=== PATIENT | male | born 1980 | race American Indian/Alaskan Native ===

== ENCOUNTER 2017-04-14 16:41 | Emergency (ER) | payer MEDICAID ==
[2017-04-14] MEDS ORDERED: NORCO 5/325 PO ONE (20:31)
--- NOTE | 2017-04-14 20:36 | Emergency Department Report ---
ED Back Pain/Injury HPI - General Chief Complaint: Back Pain/Injury Stated Complaint: BACK PAIN Time Seen by Provider: 04/14/17 20:31 Source: patient Limitations: No Limitations - History of Present Illness Initial Comments: 36-year-old male past medical history chronic lower back pain, history of muscle spasms, right femur fracture, diabetes, asthma presents with complaint of chronic back pain. States he is intermittently feeling muscle spasms in his lower back. States he has experienced these multiple times in the past. Denies any recent falls or recent trauma. Patient is awake alert and oriented 3 ambulatory denies any saddle paresthesias denies any bladder or bowel incontinence. Patient states that he ran out of his [place] which is why he came to the ER. Patient states that he was trying to get in touch with his primary doctor but could not do so. Patient is requesting a referral to primary care and medicine for his lower back pain. Patient denies any nausea vomiting fever chills abdominal pain no shortness of breath no chest pain reported. Denies any upper or lower extremity paresthesias. States that occasionally he does experience sciatica. Patient states that this pain is the same quality pain he has been experiencing for years. Patient is requesting a refill on his [place]. MD Complaint: back pain -: year(s) Similar Symptoms Previously: Yes Place: home Severity: moderate Severity scale (0 -10): 5 Quality: aching Consistency: intermittent Improves With: immobilization Worsens With: movement Context: while lifting, turning/twisting, bending - Related Data Home Medications Medication Instructions Recorded Confirmed Last Taken Insulin Glargine [Lantus] 30 units SQ QHS 05/15/16 05/15/16 Unknown Insulin Regular, Human [HumuLIN R] 12 unit SQ ACHS 05/15/16 05/15/16 Unknown Previous Rx's Medication Instructions Recorded Last Taken Type Cephalexin [Keflex] 1,000 mg PO Q12HR #40 cap 05/15/16 Unknown Rx Cyclobenzaprine [Flexeril] 10 mg PO TID PRN #12 tablet 04/14/17 Unknown Rx Naproxen [Naproxen TAB] 250 mg PO BID PRN #25 tablet 04/14/17 Unknown Rx Allergies Allergy/AdvReac Type Severity Reaction Status Date / Time cefixime [From Suprax] Allergy Hives Verified 04/14/17 17:46 ciprofloxacin [From Cipro] Allergy Unknown Verified 11/26/14 02:38 ciprofloxacin HCl Allergy Unknown Verified 11/26/14 02:38 [From Cipro] Sulfa (Sulfonamide Allergy Unknown Verified 11/26/14 02:38 Antibiotics) sulfamethoxazole Allergy Unknown Verified 11/26/14 02:38 [From Bactrim] trimethoprim [From Bactrim] Allergy Unknown Verified 11/26/14 02:38 ED Review of Systems ROS: Stated complaint: BACK PAIN Other details as noted in HPI ED Past Medical Hx - Past Medical History Previous Medical History?: Yes Hx Diabetes: Yes Hx Asthma: Yes Additional medical history: Back Pain (chronic) - Surgical History Past Surgical History?: Yes Additional Surgical History: left ear surgery when born - Social History Smoking Status: Current Every Day Smoker Substance Use Type: None - Medications Home Medications: Home Medications Medication Instructions Recorded Confirmed Last Taken Type Cephalexin [Keflex] 1,000 mg PO Q12HR #40 cap 05/15/16 Unknown Rx Insulin Glargine [Lantus] 30 units SQ QHS 05/15/16 05/15/16 Unknown History Insulin Regular, Human [HumuLIN R] 12 unit SQ ACHS 05/15/16 05/15/16 Unknown History Cyclobenzaprine [Flexeril] 10 mg PO TID PRN #12 tablet 04/14/17 Unknown Rx Naproxen [Naproxen TAB] 250 mg PO BID PRN #25 tablet 04/14/17 Unknown Rx ED Physical Exam - General Limitations: No Limitations General appearance: alert, in no apparent distress - Head Head exam: Present: atraumatic, normocephalic - Eye Eye exam: Present: normal appearance, PERRL, EOMI - ENT ENT exam: Present: mucous membranes moist - Neck Neck exam: Present: normal inspection - Respiratory Respiratory exam: Present: normal lung sounds bilaterally. Absent: respiratory distress - Cardiovascular Cardiovascular Exam: Present: regular rate, normal rhythm. Absent: systolic murmur, diastolic murmur, rubs, gallop - GI/Abdominal GI/Abdominal exam: Present: soft, normal bowel sounds - Rectal Rectal exam: Present: deferred - Extremities Exam Extremities exam: Present: normal inspection - Back Exam Back exam: Present: normal inspection, full ROM (back flexion limited by pain), muscle spasm (palpable muscle spasm right side lower back paraspinal), paraspinal tenderness (there is no midline cervical thoracic or lumbar spinal tenderness on exam) - Neurological Exam Neurological exam: Present: alert, oriented X3, CN II-XII intact, normal gait - Psychiatric Psychiatric exam: Present: normal affect, normal mood - Skin Skin exam: Present: warm, dry, intact, normal color. Absent: rash ED Course Vital Signs 04/14/17 17:46 Temperature 98.1 F Pulse Rate 115 H Respiratory 18 Rate Blood Pressure 143/105 O2 Sat by Pulse 98 Oximetry ED Medical Decision Making - Medical Decision Making A/P: Chronic lower back pain, muscle spasms 1-naproxen when necessary, Flexeril when necessary short course. I informed the patient that due to abuse potential I will not prescribe him a narcotic for chronic lower back pain as this is inappropriate given quality of his chronic pain 2-referral to primary care and outpatient orthopedics and spine surgery 3-patient is fully ambulatory with no clinical signs concerning for cord compression or cauda equina no saddle paresthesias cremasteric reflexes intact rectal tone is intact, patient is ambulatory strength 5 out of 5 upper and lower extremities. Deep tendon reflexes intact Critical care attestation.: If time is entered above; I have spent that time in minutes in the direct care of this critically ill patient, excluding procedure time. ED Disposition Clinical Impression: Back muscle spasm Chronic lower back pain Qualifiers: Back pain laterality: bilateral Sciatica presence: unspecified whether sciatica present Qualified Code(s): M54.5 - Low back pain; G89.29 - Other chronic pain Disposition: TO HOME OR SELFCARE Is pt being admited?: No Does the pt Need Aspirin: No Condition: Stable Instructions: Chronic Back Pain (ED) Prescriptions: Cyclobenzaprine [Flexeril] 10 mg PO TID PRN #12 tablet PRN Reason: Muscle Spasm Naproxen [Naproxen TAB] 250 mg PO BID PRN #25 tablet PRN Reason: Pain Referrals: BLAIR MANZANARES MD [Staff Physician] - 3-5 Days VIRAL ONEILL MD [Staff Physician] - 3-5 Days SHIN COLE MD [Staff Physician] - 3-5 Days [facility] [Provider Group] - 3-5 Days Time of Disposition: 20:42
[2017-04-14 21:05] VITALS: BP 138/99
== END 2017-04-14 21:04 | disposition home or self-care (01) ==
LOC: ED 16:41
DX: M62.830 Muscle spasm of back (principal); M54.5 Low back pain; G89.29 Other chronic pain; E11.9 Type 2 diabetes mellitus without complications; J45.909 Unspecified asthma, uncomplicated; F17.200 Nicotine dependence, unspecified, uncomplicated
CPT/HCPCS: 99282

== ENCOUNTER 2017-05-07 18:52 | Emergency (ER) | payer MEDICAID ==
[2017-05-07 19:34] VITALS: BP 128/90
[2017-05-07 20:23] LABS: Hematocrit 42.2 % (35.5-45.6); Hemoglobin 13.9 gm/dl (11.8-15.2); Mean Corpuscular HGB Conc 33 % (32-34); Mean Corpuscular Hemoglobin 27 pg (28-32); Mean Corpuscular Volume 81 fl (84-94); Platelet Count 363 K/mm3 (140-440); Red Cell Distribution Width 13.4 % (13.2-15.2)
[2017-05-07 20:26] LABS: White Blood Count 24.6 K/mm3 (4.5-11.0)
[2017-05-07 20:29] LABS: Anion Gap 23 mmol/L; Blood Urea Nitrogen 7 mg/dL (9-20); Calcium 9.6 mg/dL (8.4-10.2); Carbon Dioxide 27 mmol/L (22-30); Chloride 82.6 mmol/L (98-107); Glucose 354 mg/dL (75-100); Potassium 3.4 mmol/L (3.6-5.0); Sodium 129 mmol/L (137-145)
--- NOTE | 2017-05-07 20:32 | XRay Report ---
FINAL REPORT PROCEDURE: Left foot. TECHNIQUE: Three views. HISTORY: Left foot pain and swelling. COMPARISON: No prior studies are available for comparison. FINDINGS: The bones appear intact without fracture or dislocation. The joint spaces appear satisfactory. The soft tissues are unremarkable. IMPRESSION: Normal study.
[2017-05-07 21:25] LABS: Basophils % (Manual) 0 % (0.0-1.8); Blastocytes % (Manual) 0 %; Eosinophils % (Manual) 0 % (0.0-4.3)
[2017-05-07 21:27] LABS: Diff Status Complete; RBC Morphology Normal
--- NOTE | 2017-05-10 10:23 | ED Elopement Review ---
ED Pt Elopement review - Results review Lab results: Laboratory Tests 05/07/17 05/07/17 19:56 19:56 WBC 24.6 H RBC 5.20 H Hgb 13.9 Hct 42.2 MCV 81 L MCH 27 L MCHC 33 RDW 13.4 Plt Count 363 Add Manual Diff Complete Total Counted 100 Seg Neuts % (Manual) 74.0 H Band Neutrophils % 3.0 Lymphocytes % (Manual) 16.0 Reactive Lymphs % (Man) 0 Monocytes % (Manual) 7.0 Eosinophils % (Manual) 0 Basophils % (Manual) 0 Metamyelocytes % 0 Myelocytes % 0 Promyelocytes % 0 Blast Cells % 0 Nucleated RBC % Not Reportable Seg Neutrophils # Man 18.2 H Band Neutrophils # 0.7 Lymphocytes # (Manual) 3.9 Abs React Lymphs (Man) 0.0 Monocytes # (Manual) 1.7 H Eosinophils # (Manual) 0.0 Basophils # (Manual) 0.0 Metamyelocytes # 0.0 Myelocytes # 0.0 Promyelocytes # 0.0 Blast Cells # 0.0 WBC Morphology Not Reportable Hypersegmented Neuts Not Reportable Hyposegmented Neuts Not Reportable Hypogranular Neuts Not Reportable Smudge Cells Not Reportable Toxic Granulation Not Reportable Toxic Vacuolation Not Reportable Dohle Bodies Not Reportable Pelger-Huet Anomaly Not Reportable Pranay Rods Not Reportable Platelet Estimate Appears normal Clumped Platelets Not Reportable Plt Clumps, EDTA Not Reportable Large Platelets Not Reportable Giant Platelets Not Reportable Platelet Satelliting Not Reportable Plt Morphology Comment Not Reportable RBC Morphology Normal Dimorphic RBCs Not Reportable Polychromasia Not Reportable Hypochromasia Not Reportable Poikilocytosis Not Reportable Anisocytosis Not Reportable Microcytosis Not Reportable Macrocytosis Not Reportable Spherocytes Not Reportable Pappenheimer Bodies Not Reportable Sickle Cells Not Reportable Target Cells Not Reportable Tear Drop Cells Not Reportable Ovalocytes Not Reportable Helmet Cells Not Reportable Lim-[place] Bodies Not Reportable [place] Rings Not Reportable [place] Cells Not Reportable Bite Cells Not Reportable Crenated Cell Not Reportable Elliptocytes Not Reportable Acanthocytes (Spur) Not Reportable Rouleaux Not Reportable Hemoglobin C Crystals Not Reportable Schistocytes Not Reportable Malaria parasites Not Reportable Harley Bodies Not Reportable Hem Pathologist Commnt No Sodium 129 L Potassium 3.4 L Chloride 82.6 L Carbon Dioxide 27 Anion Gap 23 BUN 7 L Creatinine 1.0 Estimated GFR > 60 BUN/Creatinine Ratio 7.00 Glucose 354 H Calcium 9.6 - Call Back decision Pt Call Back Decision: Call pt to return to ED [facility]
== END 2017-05-07 20:15 | disposition left against medical advice (07) ==
LOC: ED 18:52
DX: M79.672 Pain in left foot (principal); Z53.21 Procedure and treatment not carried out due to patient leaving prior to being seen by health care provider
CPT/HCPCS: 36415; 80048; 85007; 85025

== ENCOUNTER 2017-05-09 11:09 | Inpatient (IN) | payer MEDICAID ==
--- NOTE | 2017-05-09 11:36 | Emergency Department Report ---
Chief Complaint: Extremity Problem,Nontraumatic Stated Complaint: LT ANKLE ABCESS Time Seen by Provider: 05/09/17 11:31 - HPI History of Present Illness: PT c/o foot infection x 1 week. PT states he is a diabetic. PT states he tried to treat his infection with Neosporin but it did not improve - ROS Review of Systems: + fever + L ankle/ foot pain/ swelling/ redness - Exam Vital Signs: Vital Signs 05/09/17 11:13 Temperature 99.1 F Pulse Rate 120 H Respiratory 20 Rate Blood Pressure 126/92 O2 Sat by Pulse 97 Oximetry Physical Exam: PT with swelling, to left medial malleolus erythema extends distally and proximally Pt is tachycardic MSE screening note: Focused history and physical exam performed. Due to findings the following was ordered: labs, ekg, xr ED Disposition for MSE Condition: Stable
[2017-05-09 13:16] LABS: Hematocrit 39.9 % (35.5-45.6); Hemoglobin 13.1 gm/dl (11.8-15.2); Mean Corpuscular HGB Conc 33 % (32-34); Mean Corpuscular Hemoglobin 27 pg (28-32); Mean Corpuscular Volume 82 fl (84-94); Platelet Count 409 K/mm3 (140-440); Red Blood Count 4.87 M/mm3 (3.65-5.03); Red Cell Distribution Width 13.4 % (13.2-15.2)
[2017-05-09 13:18] LABS: White Blood Count 34.4 K/mm3 (4.5-11.0)
--- NOTE | 2017-05-09 13:21 | XRay Report ---
Left foot: Diabetes with swelling. There is extensive soft tissue gas in the hindfoot extending into the ankle and distal leg. The main volume of gas is medially and posteriorly positioned. There is extensive swelling of the soft tissues throughout the foot. There is no apparent underlying bone or joint involvement. Impressions: Gas-forming infection of the soft tissues. No current evidence of osteomyelitis.
[2017-05-09 13:26] LABS: INR 1.39 (0.87-1.13)
--- NOTE | 2017-05-09 13:28 | XRay Report ---
Left ankle: Diabetes, swelling. There is extensive volume of gas extending along the medial ankle into the distal leg. A small amount of gas is noted anteriorly. No ulcer is noted. No underlying bone or joint abnormality. Impression: Gas-forming infection of the soft tissues.
[2017-05-09 13:34] LABS: Alanine Aminotransferase 7 units/L (7-56); Albumin 3.2 g/dL (3.9-5); Albumin/Globulin Ratio 0.5 %; Alkaline Phosphatase 134 units/L (35-129); BUN/Creatinine Ratio 11.81; Blood Urea Nitrogen 13 mg/dL (9-20); Calcium 9.8 mg/dL (8.4-10.2); Carbon Dioxide 19 mmol/L (22-30); Chloride 76.6 mmol/L (98-107); Glucose 430 mg/dL (75-100); Potassium 3.9 mmol/L (3.6-5.0); Sodium 124 mmol/L (137-145); Total Protein 9.1 g/dL (6.3-8.2)
[2017-05-09 13:51] LABS: Anion Gap 32 mmol/L
[2017-05-09] MEDS ORDERED: NACL 0.9% 1000 ML 1,000 ML IV ONE (13:59)
[2017-05-09] MEDS ORDERED: NACL 0.9% 1000 ML 2,000 ML IV ONE (13:59)
[2017-05-09] MEDS ORDERED: ZOSYN/NS 4.5GM/100ML 4.5 GM/100 ML VIAL IV ONE (14:00)
[2017-05-09] MEDS ORDERED: VANCOMYCIN PHARMACY TO DOSE IV SCH ×2 (14:00→18:00)
[2017-05-09] MEDS ORDERED: MORPHINE IV ONE (14:00)
[2017-05-09] MEDS ORDERED: FLAGYL 500 MG/100 ML 500 MG/100 ML BAG IV SCH (14:00)
[2017-05-09] MEDS ORDERED: VANCOMYCIN VIAL IV ONE (14:00)
[2017-05-09] MEDS ORDERED: TYLENOL PO ONE (14:02)
--- NOTE | 2017-05-09 14:03 | Emergency Department Report ---
ED Lower Extremity HPI - General Chief Complaint: Extremity Problem,Nontraumatic Stated Complaint: LT ANKLE ABCESS Time Seen by Provider: 05/09/17 11:31 Source: patient, RN notes reviewed, old records reviewed Mode of arrival: Wheelchair Limitations: Physical Limitation - History of Present Illness Initial Comments: This is a 36-year-old male. He is previously known to me. His primary care doctor is Dr. Stover. He reports a past medical history of diabetes. The patient presents to the ER with left lower extremity redness, pain, swelling and necrotic tissue changes on the right medial malleolus. He thinks that he injured the leg a few days ago. Positive subjective fevers and chills, malaise and generalized weakness. There is no headache, neck pain, chest pain, abdominal pain, shortness of breath. MD Complaint: leg injury -: Gradual Injury: Leg: Left, Ankle: Left, Foot: Left Type of Injury: puncture wound Place: home Severity: severe Improves With: rest Worsens With: movement, palpation Context: direct blow Associated Symptoms: swelling, unable to bear weight - Related Data Home Medications Medication Instructions Recorded Confirmed Last Taken No Known Home Medications [No 05/09/17 05/09/17 Unknown Reported Home Medications] Allergies Allergy/AdvReac Type Severity Reaction Status Date / Time cefixime [From Suprax] Allergy Hives Verified 05/09/17 14:22 ciprofloxacin [From Cipro] Allergy Unknown Verified 05/09/17 14:22 ciprofloxacin HCl Allergy Unknown Verified 05/09/17 14:22 [From Cipro] Sulfa (Sulfonamide Allergy Unknown Verified 05/09/17 14:22 Antibiotics) sulfamethoxazole Allergy Unknown Verified 05/09/17 14:22 [From Bactrim] trimethoprim [From Bactrim] Allergy Unknown Verified 05/09/17 14:22 ED Review of Systems ROS: Stated complaint: LT ANKLE ABCESS Other details as noted in HPI Constitutional: malaise, weakness Eyes: denies: vision change ENT: denies: epistaxis Respiratory: denies: cough Cardiovascular: denies: chest pain Gastrointestinal: denies: abdominal pain Genitourinary: denies: dysuria Musculoskeletal: joint swelling, arthralgia, myalgia Skin: lesions Neurological: denies: headache Psychiatric: anxiety ED Past Medical Hx - Past Medical History Previous Medical History?: Yes Hx Diabetes: Yes Hx Asthma: Yes Additional medical history: Back Pain (chronic) , Left foot ulceration - Surgical History Past Surgical History?: Yes Additional Surgical History: left ear surgery when born, Tonsillectomy - Social History Smoking Status: Current Every Day Smoker Substance Use Type: Prescribed - Medications Home Medications: Home Medications Medication Instructions Recorded Confirmed Last Taken Type No Known Home Medications [No 05/09/17 05/09/17 Unknown History Reported Home Medications] ED Physical Exam - General Limitations: Physical Limitation General appearance: alert, in no apparent distress - Head Head exam: Present: atraumatic, normocephalic - Eye Eye exam: Present: normal appearance, EOMI. Absent: nystagmus - ENT ENT exam: Present: normal exam, normal orophraynx, mucous membranes moist, normal external ear exam - Neck Neck exam: Present: normal inspection, full ROM. Absent: tenderness, meningismus - Respiratory Respiratory exam: Present: normal lung sounds bilaterally. Absent: respiratory distress, wheezes, rales, rhonchi, stridor, chest wall tenderness - Cardiovascular Cardiovascular Exam: Present: normal rhythm, tachycardia, normal heart sounds. Absent: systolic murmur, diastolic murmur, rubs, gallop - GI/Abdominal GI/Abdominal exam: Present: soft, normal bowel sounds. Absent: distended, tenderness, guarding, rebound, rigid, pulsatile mass - Rectal Rectal exam: Present: deferred - Extremities Exam Extremities exam: Present: tenderness (the left foot is red, warm, swollen and tender. There is a large area of necrotic tissue on the medial malleolus.), other (the bilateral upper extremities are unremarkable and within normal limits. The right lower extremity is within normal limits. 2+ pulses noted in 4 extremities.) - Back Exam Back exam: Present: normal inspection, full ROM. Absent: tenderness, CVA tenderness (R), CVA tenderness (L), muscle spasm, paraspinal tenderness, vertebral tenderness - Neurological Exam Neurological exam: Present: alert, oriented X3, other (Extraocular movements intact. Tongue midline. No facial droop. Facial sensation intact to light touch in the V1, V2, V3 distribution bilaterally. 5 and 5 strength in 4 extremities.. Sensation is intact to light touch in 4 extremities.). Absent: motor sensory deficit - Psychiatric Psychiatric exam: Present: normal affect, normal mood - Skin Skin exam: Present: warm, erythema ED Course Vital Signs 05/09/17 05/09/17 05/09/17 11:13 14:05 16:46 Temperature 99.1 F 98.6 F 99.9 F H Pulse Rate 120 H 99 H 114 H Respiratory 20 16 16 Rate Blood Pressure 126/92 Blood Pressure 138/92 102/66 [Left] O2 Sat by Pulse 97 100 100 Oximetry 05/09/17 18:41 Temperature 99.9 F H Pulse Rate 116 H Respiratory 16 Rate Blood Pressure Blood Pressure 114/78 [Left] O2 Sat by Pulse 100 Oximetry ED Lower Extremity MDM - Lab Data Result diagrams: 05/09/17 13:00 05/09/17 13:00 Vital Signs 05/09/17 05/09/17 11:13 14:05 Temperature 99.1 F 98.6 F Pulse Rate 120 H 99 H Respiratory 20 16 Rate Blood Pressure 126/92 Blood Pressure 138/92 [Left] O2 Sat by Pulse 97 100 Oximetry Lab Results 05/09/17 05/09/17 05/09/17 Range/Units 13:00 13:00 13:00 WBC 34.4 H (4.5-11.0) K/mm3 RBC 4.87 (3.65-5.03) M/mm3 Hgb 13.1 (11.8-15.2) gm/dl Hct 39.9 (35.5-45.6) % MCV 82 L (84-94) fl MCH 27 L (28-32) pg MCHC 33 (32-34) % RDW 13.4 (13.2-15.2) % Plt Count 409 (140-440) K/mm3 ESR 6 (0-20) mm/Hr PT 17.0 H (12.2-14.9) Sec. INR 1.39 H (0.87-1.13) VBG pH (7.320-7.420) Sodium 124 L (137-145) mmol/L Potassium 3.9 (3.6-5.0) mmol/L Chloride 76.6 L (98-107) mmol/L Carbon Dioxide 19 L D (22-30) mmol/L Anion Gap 32 mmol/L BUN 13 (9-20) mg/dL Creatinine 1.1 (0.8-1.5) mg/dL Estimated GFR > 60 ml/min BUN/Creatinine Ratio 11.81 % Glucose 430 H (75-100) mg/dL POC Glucose (70-105) Ketones Quantitative (Negative) Lactic Acid (0.7-2.0) mmol/L Calcium 9.8 (8.4-10.2) mg/dL Total Bilirubin 0.40 (0.1-1.2) mg/dL AST 12 (5-40) units/L ALT 7 (7-56) units/L Alkaline Phosphatase 134 H (35-129) units/L C-Reactive Protein 53.30 H (0.00-1.30) mg/dL Total Protein 9.1 H (6.3-8.2) g/dL Albumin 3.2 L (3.9-5) g/dL Albumin/Globulin Ratio 0.5 % 05/09/17 05/09/17 05/09/17 Range/Units 13:00 13:43 13:43 WBC (4.5-11.0) K/mm3 RBC (3.65-5.03) M/mm3 Hgb (11.8-15.2) gm/dl Hct (35.5-45.6) % MCV (84-94) fl MCH (28-32) pg MCHC (32-34) % RDW (13.2-15.2) % Plt Count (140-440) K/mm3 ESR (0-20) mm/Hr PT (12.2-14.9) Sec. INR (0.87-1.13) VBG pH 7.345 (7.320-7.420) Sodium (137-145) mmol/L Potassium (3.6-5.0) mmol/L Chloride (98-107) mmol/L Carbon Dioxide (22-30) mmol/L Anion Gap mmol/L BUN (9-20) mg/dL Creatinine (0.8-1.5) mg/dL Estimated GFR ml/min BUN/Creatinine Ratio % Glucose (75-100) mg/dL POC Glucose (70-105) Ketones Quantitative Moderate (Negative) Lactic Acid 2.10 H* (0.7-2.0) mmol/L Calcium (8.4-10.2) mg/dL Total Bilirubin (0.1-1.2) mg/dL AST (5-40) units/L ALT (7-56) units/L Alkaline Phosphatase (35-129) units/L C-Reactive Protein (0.00-1.30) mg/dL Total Protein (6.3-8.2) g/dL Albumin (3.9-5) g/dL Albumin/Globulin Ratio % 05/09/ Range/Units 14:14 WBC (4.5-11.0) K/mm3 RBC (3.65-5.03) M/mm3 Hgb (11.8-15.2) gm/dl Hct (35.5-45.6) % MCV (84-94) fl MCH (28-32) pg MCHC (32-34) % RDW (13.2-15.2) % Plt Count (140-440) K/mm3 ESR (0-20) mm/Hr PT (12.2-14.9) Sec. INR (0.87-1.13) VBG pH (7.320-7.420) Sodium (137-145) mmol/L Potassium (3.6-5.0) mmol/L Chloride (98-107) mmol/L Carbon Dioxide (22-30) mmol/L Anion Gap mmol/L BUN (9-20) mg/dL Creatinine (0.8-1.5) mg/dL Estimated GFR ml/min BUN/Creatinine Ratio % Glucose (75-100) mg/dL POC Glucose 465 H (70-105) Ketones Quantitative (Negative) Lactic Acid (0.7-2.0) mmol/L Calcium (8.4-10.2) mg/dL Total Bilirubin (0.1-1.2) mg/dL AST (5-40) units/L ALT (7-56) units/L Alkaline Phosphatase (35-129) units/L C-Reactive Protein (0.00-1.30) mg/dL Total Protein (6.3-8.2) g/dL Albumin (3.9-5) g/dL Albumin/Globulin Ratio % - EKG Data -: EKG Interpreted by Ut EKG shows normal: sinus rhythm, axis, intervals, QRS complexes, ST-T waves - Radiology Data Radiology results: report reviewed, image reviewed X-ray of the foot and ankle demonstrate no fracture or dislocation. Soft tissue gas is noted. - Medical Decision Making Differential diagnosis: Cellulitis, myositis, necrotizing fasciitis, hyperglycemia, hyperosmolar state, sepsis, diabetic ketoacidosis Assessment and plan: 36-year-old male with left lower extremity foot redness, warmth, swelling, pain with intact pulses, necrotic tissue, x-ray demonstrating soft tissue gas, concerning for necrotizing infection. Patient reports he is able to tolerate penicillin. The patient will be treated along the sepsis pathway, he will be given 30 mL/kg of IV fluid, broad-spectrum antibiotics, including vancomycin, Zosyn, metronidazole, IV fluids, pain medication, Tylenol, and insulin. Case was discussed with vascular surgery on- call, Laura Astudillo, who recommended orthopedic surgery consultation given the presence of pulses. The case was discussed with the orthopedic physician on-call, Dr. Garcia, and he was presented to the patient's clinical picture, including his physical examination, laboratory studies, and radiographic findings. I request an urgent /emergent consultation for possible surgical debridement. Case is presented to the Hospital physician, Dr. Mistry, who accepts the patient to his service. Tachycardia has improved at this time. Blood pressure remained stable. Laboratory findings not consistent with dka' Hyponatremia is appreciated, this is most likely combination of hypovolemic hyponatremia, as well as likely pseudohyponatremia secondary to hyperglycemia. Critical care attestation.: If time is entered above; I have spent that time in minutes in the direct care of this critically ill patient, excluding procedure time. ED Disposition Clinical Impression: Necrotizing cellulitis, Sepsis affecting skin Disposition: OP ADMIT IP TO THIS HOSP Is pt being admited?: Yes Condition: Fair
[2017-05-09 14:04] LABS: Erythrocyte Sedimentation Rate 6 mm/Hr (0-20)
--- NOTE | 2017-05-09 14:04 | Admit Criteria Form ---
Admission Criteria Documentation: CELLULITIS Clinical Indications for Admission to Inpatient Care (Place 'X' for any and all applicable criteria): Admission is indicated for ANY ONE of the following(1)(2)(3)(4)(5): [ ]I. Limb-threatening infection [ X]II. High-risk comorbid condition as indicated by ANY ONE of the following: [X ]a) Uncontrolled diabetes (eg, HbA1c greater than 10% (0.1)) [ ]b) Cirrhosis [ ]c) Neutropenia [ ]d) Asplenia [ ]e) Immunosuppression [ ]f) Symptomatic heart failure [ ]III. Failure of outpatient therapy as indicated by ALL of the following: [ ]a) Progression or no improvement after adequate trial (minimum of 48 hours, with longer period for stable lower extremity infection) [ ]b) Adequate antibiotic regimen as indicated by use of ANY ONE of the following: [ ]i) First-generation cephalosporin (e.g., cephalexin) [ ]ii) Antistaphylococcal penicillin (e.g., dicloxacillin) [ ]iii) Penicillin-allergic patient regimen (clindamycin, extended-spectrum fluoroquinolone, or doxycycline) [ ]iv) Resistant organism (eg, methicillin-resistant Staphylococcus aureus) regimen (6) [ ]c) Outpatient intravenous therapy regimen is not appropriate due to ANY ONE of the following. (7)(8)(9)(10): [ ]i) It was tried and was not successful (eg, progression of infection). [ ]ii) It is not available or cannot be arranged in a clinically appropriate time frame (e.g., the next day). [ ]iii) Clinical presentation (eg, acuity of infection, rapidity of progression, confirmed or suspected bacteremia) is judged to require ALL of the following: [ ]1) Immediate initiation of intravenous therapy ( eg, cannot wait for next day) [ ]2) Intensity of patient monitoring and observation (eg, vital sign measurement, checks for infection progression) that cannot be provided at other than inpatient level of care [ ]IV. Mental status changes [ ]V. Bacteremia [ ]. Hemodynamic instability [ ]VII. Suspected necrotizing soft tissue infection (e.g., gas in tissue)(11)( 12) [ ]VIII. Orbital infection (13)(14) [ ]IX. Associated surgical procedure (e.g., abscess drainage, debridement) not amenable to outpatient, emergency department, or observation care [ ]X. Cutaneous gangrene [ ]XI. High fever (temperature greater than 39.5 degrees C (103.1 degrees F) (oral)) not responsive to outpatient, emergency department, or observation care therapy [ ]XIII. Inpatient admission required rather than observation care (Also use Cellulitis: Observation Care as appropriate) because of ANY ONE of the following : [ ]a) Periorbital or perineal infection that is severe or worsening [ ]b) Severe pain requiring acute inpatient management [ ]c) IV fluid to replace significant ongoing (e.g., for over 24 hours) losses (greater than 3L/m2 per day) [ ]d) Compartment syndrome monitoring (17) [ ]e) Strict or protective (eg, laminar flow) isolation [ ]f) Urgent debridement or skin grafting [ ]g) Bone or joint debridement [ ]h) Immediate inpatient surgery [ ]i) Other condition, treatment or monitoring requiring inpatient admission Extended stay beyond goal length of stay may be needed for (1)(18): [ ]a) Necrotizing soft tissue infection or fasciitis [ ]b) Gram-negative infection [ ]c) Methicillin-resistant Staphylococcal aureus (MRSA) infection [ ]d) Peripheral venous insufficiency with cellulitis [ ]e) Extensive edema [ ]f) Sepsis or continued Hemodynamic instability [ ]g) Continued high fever or mental status change [ ]h) Bacteremia [ ]i) Active serious comorbid conditions ( eg, heart failure, renal insufficiency) The original [facility] [employer] content created by [facility] has been revised. The portions of the content which have been revised are identified through the use of italic text or in bold, and [facility] has neither reviewed nor approved the modified material. All other unmodified content is copyright [facility] [employer] [facility] Please see references footnoted in the original [facility] [employer] edition 2016 Admission Criteria Met: Yes
[2017-05-09 15:09] LABS: LA REFLEX Y
[2017-05-09 15:33] LABS: Bacteria,Urine 1+ /HPF (Negative); Bilirubin,Urine NEG (Negative); Blood,Urine MOD (Negative); Ketones,Urine 80 mg/dL (Negative); Leukocyte Esterase,Urine NEG (Negative); Mucus,Urine FEW /HPF; Nitrite,Urine NEG (Negative); Urobilinogen,Urine < 2.0 mg/dL (<2.0); WBC,Urine < 1.0 /HPF (0.0-6.0)
[2017-05-09] MEDS ORDERED: VANCOMYCIN 1,500 MG in NACL 0.9% 500 ML 500 ML IV ONE ×2 (16:00→18:15)
[2017-05-09 16:34] LABS: Basophils % (Manual) 0 % (0.0-1.8); Blastocytes % (Manual) 0 %; Eosinophils % (Manual) 0 % (0.0-4.3); Total Cells Counted Percent 5.5
[2017-05-09 16:35] LABS: Anisocytosis 1+; Diff Status Complete
[2017-05-09] MEDS ORDERED: ZOFRAN IV PRN (17:01)
[2017-05-09] MEDS ORDERED: TYLENOL PO PRN (17:01)
[2017-05-09] MEDS ORDERED: MILK OF MAGNESIA PO PRN (17:01)
[2017-05-09] MEDS ORDERED: DULCOLAX PR PRN (17:01)
--- NOTE | 2017-05-09 17:11 | History and Physical Report ---
History of Present Illness Date of examination: 05/09/17 Chief complaint: Left foot pain and swelling go with one week History of present illness: 36-year-old male with past medical history significant for diabetes mellitus, asthma, hypercholesterolemia presented to the emergency department complaining of left foot pain and swelling of one week. Patient said he has trauma to his left foot a week ago and since that time he started to have pain, swelling, redness of the left foot. He said he had pus discharge from the site. Patient said he has fever, nausea, vomiting and diarrhea. He said the pain is 10 out of 10 in intensity and constant. Patient claimed he has diarrhea for 1 week which is yellowish in color. Patient denied any recent use of antibiotics. REVIEW OF SYSTEMS: GENERAL: no weight change, no fatigue, + fever HEAD: no head ache EYES: no blurry vision, no acute visual loss EARS: no hearing loss, no discharge, no earache NOSE: no stuffiness, no sneezing, no discharge MOUTH, THROAT AND NECK: no bleeding gums, no sore throat, no swollen neck CARDIAC: no palpitations, no dyspnea on exertion, no orthopnea, no PND, no edema , no chest pain RESPIRATORY: no shortness of breath, no wheeze, no cough, no sputum, no hemoptysis, no asthma GI: no decreased appetite, + nausea, + vomiting, no dysphagia, + diarrhea, no constipation, + abdominal pain URINARY: no change in frequency, no urgency, no polyuria, no hematuria, no incontinence MUSCULOSKELETAL: pain on the left foot NEUROLOGIC: no loss of sensation/numbness, no tingling, no tremors, no weakness/ paralysis HEMATOLOGIC: no anemia, no easy bruising SKIN: no rashes ENDOCRINE: no heat/cold intolerance, no polyuria, no polydipsia, no thyroid problems, + diabetes PSYCHIATRIC: no anxiety, no depression, no suicidal ideations Past History Past Medical History: diabetes, hyperlipidemia, other (asthma) Past Surgical History: tonsillectomy Social history: smoking (1ppd), full code. denies: alcohol abuse, prescription drug abuse, IV drug use Family history: no significant family history Medications and Allergies Allergies Allergy/AdvReac Type Severity Reaction Status Date / Time cefixime [From Suprax] Allergy Hives Verified 05/09/17 14:22 ciprofloxacin [From Cipro] Allergy Unknown Verified 05/09/17 14:22 ciprofloxacin HCl Allergy Unknown Verified 05/09/17 14:22 [From Cipro] Sulfa (Sulfonamide Allergy Unknown Verified 05/09/17 14:22 Antibiotics) sulfamethoxazole Allergy Unknown Verified 05/09/17 14:22 [From Bactrim] trimethoprim [From Bactrim] Allergy Unknown Verified 05/09/17 14:22 Home Medications Medication Instructions Recorded Confirmed Last Taken Type No Known Home Medications [No 05/09/17 05/09/17 Unknown History Reported Home Medications] Active Meds: Active Medications Metronidazole (Flagyl 500 Mg/100 Ml) 500 mg in 100 mls @ 200 mls/hr IV ONCE CYNTHIA Last Admin: 05/09/17 15:17 Dose: 200 mls/hr Vancomycin HCl 1,500 mg/ (Sodium Chloride) 530 mls @ 333.333 mls/hr IV ONCE.ED ONE Stop: 05/09/17 17:35 Last Admin: 05/09/17 16:57 Dose: 333.333 mls/hr Vancomycin HCl 1,500 mg/ (Sodium Chloride) 530 mls @ 333.333 mls/hr IV Q12H CYNTHIA Vancomycin HCl (Vancomycin Pharmacy To Dose) 1 each IV PKCONSULT CYNTHIA PRN Reason: Protocol Exam - Physical Exam Narrative exam: Not in cardiopulmonary distress. The patient appeared well nourished and normally developed. Vital signs as documented. Head exam is unremarkable. No scleral icterus . Neck is without jugular venous distension, thyromegaly, or carotid bruits. Lungs are clear to auscultation. Cardiac exam reveals regular rate and Rhythm. First and second heart sounds normal. No murmurs, rubs or gallops. Abdominal exam reveals normal bowel sounds, no masses, no organomegaly and no aortic enlargement. Extremities swelling, erythema, abscess collection of the left foot most prominent on the left mid ankle area and big toes. EQUIPMENT APPLICATION SPECIALIST: Alert and oriented 3. No focal weakness. - Constitutional Vitals: Temp Pulse Resp BP Pulse Ox 99.9 F H 114 H 16 102/66 100 05/09/17 16:46 05/09/17 16:46 05/09/17 16:46 05/09/17 16:46 05/09/17 16:46 Results - Labs CBC & Chem 7: 05/09/17 13:00 05/09/17 13:00 Labs: Laboratory Last Values WBC 34.4 K/mm3 (4.5-11.0) H 05/09/17 13:00 RBC 4.87 M/mm3 (3.65-5.03) 05/09/17 13:00 Hgb 13.1 gm/dl (11.8-15.2) 05/09/17 13:00 Hct 39.9 % (35.5-45.6) 05/09/17 13:00 MCV 82 fl (84-94) L 05/09/17 13:00 MCH 27 pg (28-32) L 05/09/17 13:00 MCHC 33 % (32-34) 05/09/17 13:00 RDW 13.4 % (13.2-15.2) 05/09/17 13:00 Plt Count 409 K/mm3 (140-440) 05/09/17 13:00 Add Manual Diff Complete 05/09/17 13:00 Total Counted 200 05/09/17 13:00 Seg Neuts % (Manual) 87.0 % (40.0-70.0) H 05/09/17 13:00 Band Neutrophils % 0 % 05/09/17 13:00 Lymphocytes % (Manual) 6.5 % (13.4-35.0) L 05/09/17 13:00 Reactive Lymphs % (Man) 0 % 05/09/17 13:00 Monocytes % (Manual) 5.5 % (0.0-7.3) 05/09/17 13:00 Eosinophils % (Manual) 0 % (0.0-4.3) 05/09/17 13:00 Basophils % (Manual) 0 % (0.0-1.8) 05/09/17 13:00 Metamyelocytes % 0 % 05/09/17 13:00 Myelocytes % 1.0 % 05/09/17 13:00 Promyelocytes % 0 % 05/09/17 13:00 Blast Cells % 0 % 05/09/17 13:00 Nucleated RBC % Not Reportable 05/09/17 13:00 Seg Neutrophils # Man 29.9 K/mm3 (1.8-7.7) H 05/09/17 13:00 Band Neutrophils # 0.0 K/mm3 05/09/17 13:00 Lymphocytes # (Manual) 2.2 K/mm3 (1.2-5.4) 05/09/17 13:00 Abs React Lymphs (Man) 0.0 K/mm3 05/09/17 13:00 Monocytes # (Manual) 1.9 K/mm3 (0.0-0.8) H 05/09/17 13:00 Eosinophils # (Manual) 0.0 K/mm3 (0.0-0.4) 05/09/17 13:00 Basophils # (Manual) 0.0 K/mm3 (0.0-0.1) 05/09/17 13:00 Metamyelocytes # 0.0 K/mm3 05/09/17 13:00 Myelocytes # 0.3 K/mm3 05/09/17 13:00 Promyelocytes # 0.0 K/mm3 05/09/17 13:00 Blast Cells # 0.0 K/mm3 05/09/17 13:00 WBC Morphology Not Reportable 05/09/17 13:00 Hypersegmented Neuts Not Reportable 05/09/17 13:00 Hyposegmented Neuts Not Reportable 05/09/17 13:00 Hypogranular Neuts Not Reportable 05/09/17 13:00 Smudge Cells Not Reportable 05/09/17 13:00 Toxic Granulation Not Reportable 05/09/17 13:00 Toxic Vacuolation Not Reportable 05/09/17 13:00 Dohle Bodies Not Reportable 05/09/17 13:00 Pelger-Huet Anomaly Not Reportable 05/09/17 13:00 Pranay Rods Not Reportable 05/09/17 13:00 Platelet Estimate Appears normal 05/09/17 13:00 Clumped Platelets Not Reportable 05/09/17 13:00 Plt Clumps, EDTA Not Reportable 05/09/17 13:00 Large Platelets Not Reportable 05/09/17 13:00 Giant Platelets Not Reportable 05/09/17 13:00 Platelet Satelliting Not Reportable 05/09/17 13:00 Plt Morphology Comment Not Reportable 05/09/17 13:00 RBC Morphology Not Reportable 05/09/17 13:00 Dimorphic RBCs Not Reportable 05/09/17 13:00 Polychromasia Not Reportable 05/09/17 13:00 Hypochromasia Not Reportable 05/09/17 13:00 Poikilocytosis Not Reportable 05/09/17 13:00 Anisocytosis 1+ 05/09/17 13:00 Microcytosis Not Reportable 05/09/17 13:00 Macrocytosis Not Reportable 05/09/17 13:00 Spherocytes Not Reportable 05/09/17 13:00 Pappenheimer Bodies Not Reportable 05/09/17 13:00 Sickle Cells Not Reportable 05/09/17 13:00 Target Cells Not Reportable 05/09/17 13:00 Tear Drop Cells Not Reportable 05/09/17 13:00 Ovalocytes Not Reportable 05/09/17 13:00 Helmet Cells Not Reportable 05/09/17 13:00 Lim-[place] Bodies Not Reportable 05/09/17 13:00 [place] Rings Not Reportable 05/09/17 13:00 Haile Cells Not Reportable 05/09/17 13:00 Bite Cells Not Reportable 05/09/17 13:00 Crenated Cell Not Reportable 05/09/17 13:00 Elliptocytes Not Reportable 05/09/17 13:00 Acanthocytes (Spur) Not Reportable 05/09/17 13:00 Rouleaux Not Reportable 05/09/17 13:00 Hemoglobin C Crystals Not Reportable 05/09/17 13:00 Schistocytes Not Reportable 05/09/17 13:00 Malaria parasites Not Reportable 05/09/17 13:00 ESR 6 mm/Hr (0-20) 05/09/17 13:00 Harley Bodies Not Reportable 05/09/17 13:00 Hem Pathologist Commnt No 05/09/17 13:00 PT 17.0 Sec. (12.2-14.9) H 05/09/17 13:00 INR 1.39 (0.87-1.13) H 05/09/17 13:00 VBG pH 7.345 (7.320-7.420) 05/09/17 13:43 Sodium 124 mmol/L (137-145) L 05/09/17 13:00 Potassium 3.9 mmol/L (3.6-5.0) 05/09/17 13:00 Chloride 76.6 mmol/L (98-107) L 05/09/17 13:00 Carbon Dioxide 19 mmol/L (22-30) L D 05/09/17 13:00 Anion Gap 32 mmol/L 05/09/17 13:00 BUN 13 mg/dL (9-20) 05/09/17 13:00 Creatinine 1.1 mg/dL (0.8-1.5) 05/09/17 13:00 Estimated GFR > 60 ml/min 05/09/17 13:00 BUN/Creatinine Ratio 11.81 % 05/09/17 13:00 Glucose 430 mg/dL (75-100) H 05/09/17 13:00 POC Glucose 303 (70-105) H 05/09/17 15:40 Ketones Quantitative Moderate (Negative) 05/09/17 13:43 Lactic Acid 2.40 mmol/L (0.7-2.0) H* 05/09/17 14:50 Calcium 9.8 mg/dL (8.4-10.2) 05/09/17 13:00 Total Bilirubin 0.40 mg/dL (0.1-1.2) 05/09/17 13:00 AST 12 units/L (5-40) 05/09/17 13:00 ALT 7 units/L (7-56) 05/09/17 13:00 Alkaline Phosphatase 134 units/L (35-129) H 05/09/17 13:00 C-Reactive Protein 53.30 mg/dL (0.00-1.30) H 05/09/17 13:00 Total Protein 9.1 g/dL (6.3-8.2) H 05/09/17 13:00 Albumin 3.2 g/dL (3.9-5) L 05/09/17 13:00 Albumin/Globulin Ratio 0.5 % 05/09/17 13:00 Urine Color Yellow (Yellow) 05/09/17 14:44 Urine Turbidity Clear (Clear) 05/09/17 14:44 Urine pH 5.0 (5.0-7.0) 05/09/17 14:44 Ur Specific [employer] 1.015 (1.003-1.030) 05/09/17 14:44 Urine Protein 30 mg/dl mg/dL (Negative) 05/09/17 14:44 Urine Glucose (UA) >=500 mg/dL (Negative) 05/09/17 14:44 Urine Ketones 80 mg/dL (Negative) 05/09/17 14:44 Urine Blood Mod (Negative) 05/09/17 14:44 Urine Nitrite Neg (Negative) 05/09/17 14:44 Urine Bilirubin Neg (Negative) 05/09/17 14:44 Urine Urobilinogen < 2.0 mg/dL (<2.0) 05/09/17 14:44 Ur Leukocyte Esterase Neg (Negative) 05/09/17 14:44 Urine WBC (Auto) < 1.0 /HPF (0.0-6.0) 05/09/17 14:44 Urine RBC (Auto) 1.0 /HPF (0.0-6.0) 05/09/17 14:44 U Epithel Cells (Auto) < 1.0 /HPF (0-13.0) 05/09/17 14:44 Urine Bacteria (Auto) 1+ /HPF (Negative) 05/09/17 14:44 Urine Mucus Few /HPF 05/09/17 14:44 Assessment and Plan Assessment and plan: Sepsis secondary to soft tissue infection Necrotizing cellulitis Gas forming infection Uncontrolled diabetes mellitus Leukocytosis Lactic acidosis - Patient started on IV event and Zosyn - Patient is being treated according to sepsis protocol - Orthopedics is consulted as a going to see him - On insulin regimen DVT prophylaxis - SCDs because he may need surgery Disposition - Admit to medical floor. Advance Directives: Yes VTE prophylaxis?: Mechanical Reason for no VTE Prophylaxis: Surgical contraindication Plan of care discussed with patient/family: Yes
[2017-05-09] MEDS ORDERED: D50W (25GM) IV PRN (17:19)
[2017-05-09] MEDS ORDERED: XYLOCAINE 1% 20 mL INFILTRATI ONE (17:39)
[2017-05-09 18:10] LABS: INR 1.66 (0.87-1.13)
--- NOTE | 2017-05-09 18:16 | Consultation ---
History of Present Illness - HPI Consult date: 05/09/17 Consult reason: joint pain History of present illness: 36-year-old male who comes in complaining of left ankle and foot pain and swelling for the last 1 week states he injured her foot in some manner Recall how brought over this time is noticed increasing pain and swelling about the ankle with some drainage. He is seen in the emergency room trays were taken revealing air in the soft tissue asked to evaluate regarding need for incision and drainage. Past History Past Medical History: diabetes, hyperlipidemia, other (asthma) Past Surgical History: tonsillectomy Social history: smoking (1ppd), full code. denies: alcohol abuse, prescription drug abuse, IV drug use Family history: no significant family history Medications and Allergies Allergies Allergy/AdvReac Type Severity Reaction Status Date / Time cefixime [From Suprax] Allergy Hives Verified 05/09/17 14:22 ciprofloxacin [From Cipro] Allergy Unknown Verified 05/09/17 14:22 ciprofloxacin HCl Allergy Unknown Verified 05/09/17 14:22 [From Cipro] Sulfa (Sulfonamide Allergy Unknown Verified 05/09/17 14:22 Antibiotics) sulfamethoxazole Allergy Unknown Verified 05/09/17 14:22 [From Bactrim] trimethoprim [From Bactrim] Allergy Unknown Verified 05/09/17 14:22 Home Medications Medication Instructions Recorded Confirmed Last Taken Type No Known Home Medications [No 05/09/17 05/09/17 Unknown History Reported Home Medications] Active Meds: Active Medications Acetaminophen (Tylenol) 650 mg PO Q4H PRN PRN Reason: Pain MILD(1-3)/Fever >100.5/SIMON Acetaminophen/Hydrocodone Bitart ([place] 5/325) 2 each PO Q6H PRN PRN Reason: Pain, Moderate (4-6) Bisacodyl (Dulcolax) 10 mg ME QDAY PRN PRN Reason: Constipation unrelieved by MOM Dextrose (D50w (25gm)) 50 ml IV PRN PRN PRN Reason: Hypoglycemia Enoxaparin Sodium (Lovenox) 40 mg SUB-Q QDAY CYNTHIA Famotidine (Pepcid) 20 mg PO BID CYNTHIA Metronidazole (Flagyl 500 Mg/100 Ml) 500 mg in 100 mls @ 200 mls/hr IV ONCE CYNTHIA Last Admin: 05/09/17 15:17 Dose: 200 mls/hr Vancomycin HCl 1,500 mg/ (Sodium Chloride) 530 mls @ 333.333 mls/hr IV Q12H CYNTHIA Piperacillin Sod/Tazobactam Sod (Zosyn/Ns 4.5gm/100ml) 4.5 gm in 100 mls @ 200 mls/hr IV Q8HR CYNTHIA PRN Reason: Protocol Vancomycin HCl 1,500 mg/ (Sodium Chloride) 530 mls @ 333.333 mls/hr IV ONCE.ED ONE Stop: 05/09/17 19:50 Insulin Aspart (Novolog) 0 units SUB-Q ACHS CYNTHIA PRN Reason: Protocol Insulin Detemir (Levemir) 40 units SUB-Q QHS CYNTHIA Magnesium Hydroxide (Milk Of Magnesia) 30 ml PO Q4H PRN PRN Reason: Constipation Morphine Sulfate (Morphine) 2 mg IV Q4H PRN PRN Reason: Pain, Moderate (4-6) Ondansetron HCl (Zofran) 4 mg IV Q8H PRN PRN Reason: N/V unrelieved by [place] Vancomycin HCl (Vancomycin Pharmacy To Dose) 1 each IV PKCONSULT CYNTHIA PRN Reason: Protocol Vancomycin HCl (Vancomycin Pharmacy To Dose) 1 each IV PKCONSULT CYNTHIA PRN Reason: Protocol Physical Examination - Physical exam Narrative exam: On physical examination, there was a foul odor emanating from the wound in addition there was redness erythema extending up to the proximal third level of his leg is also a small punctate lesion along the medial border of the foot with some pus drainage he is able to move the ankle without much pain there was fluctuance along the medial border pulses were intact remainder of his physical exam is unremarkable Assessment and Plan Assessment - infected left ankle foot with abscess formation Plan/recommendations - patient will require incision and drainage along with packing, IV antibiotics and observation
--- NOTE | 2017-05-09 18:20 | Procedure Note ---
Date of procedure: 05/09/17 Pre-op diagnosis: abscess left ankle and foot Post-op diagnosis: same Procedure: Incision and drainage left ankle Procedure Under sterile condition the left lower extremity was prepped and draped the skin overlying the ankle and foot were anesthetized with 1% lidocaine 11 blade was used to incise proximally and distally, pulses and air was noted coming from the wound WERE obtained and sent to pathology next the wound was copiously irrigated with saline solution. Iodoform gauze packing was placed and the wound followed by 4 x 4 gauze and Kerlix. Tolerated the procedure there were no complications. Surgeon: VIRAL ONEILL Estimated blood loss: minimal Pathology: list (cultures were sent for identification and sensitivity) Specimen disposition: to lab Condition: stable Disposition: floor
[2017-05-09] MEDS: PEPCID PO SCH (21:33)
[2017-05-09] MEDS: MORPHINE IV PRN (21:34)
[2017-05-09] MEDS ORDERED: VANCOMYCIN VIAL IV SCH (22:00)
[2017-05-09] MEDS ORDERED: LEVEMIR SUB-Q SCH (22:00)
[2017-05-09] MEDS: NACL 0.9% 1000 ML 1,000 ML IV SCH (22:02)
[2017-05-09] MEDS: NOVOLOG SUB-Q SCH (22:28)
[2017-05-09] MEDS: ZOSYN/NS 4.5GM/100ML 4.5 GM/100 ML VIAL IV SCH (22:28)
[2017-05-10] MEDS: NORCO 5/325 PO PRN ×2 (01:21→11:13)
[2017-05-10 05:36] LABS: Hematocrit 35.8 % (35.5-45.6); Hemoglobin 11.8 gm/dl (11.8-15.2); Mean Corpuscular HGB Conc 33 % (32-34); Mean Corpuscular Hemoglobin 26 pg (28-32); Mean Corpuscular Volume 80 fl (84-94); Red Blood Count 4.48 M/mm3 (3.65-5.03); Red Cell Distribution Width 13.5 % (13.2-15.2)
[2017-05-10 05:38] LABS: White Blood Count 24.2 K/mm3 (4.5-11.0)
[2017-05-10 05:39] LABS: Platelet Count 369 K/mm3 (140-440)
[2017-05-10 06:04] LABS: Alanine Aminotransferase 6 units/L (7-56); Albumin 2.8 g/dL (3.9-5); Albumin/Globulin Ratio 0.6 %; Alkaline Phosphatase 111 units/L (35-129); Anion Gap 21 mmol/L; BUN/Creatinine Ratio 12.85; Blood Urea Nitrogen 9 mg/dL (9-20); Carbon Dioxide 24 mmol/L (22-30); Chloride 92.4 mmol/L (98-107); Glucose 159 mg/dL (75-100); Potassium 3.1 mmol/L (3.6-5.0); Sodium 134 mmol/L (137-145); Total Protein 7.7 g/dL (6.3-8.2)
[2017-05-10] MEDS: ZOSYN/NS 4.5GM/100ML 4.5 GM/100 ML VIAL IV SCH ×3 (06:10→21:59)
[2017-05-10] MEDS: VANCOMYCIN 1,500 MG in NACL 0.9% 500 ML 500 ML IV SCH ×2 (06:49→17:43)
[2017-05-10 07:09] LABS: Blastocytes % (Manual) 0 %; Eosinophils % (Manual) 0 % (0.0-4.3)
[2017-05-10 07:10] LABS: Anisocytosis 1+
[2017-05-10 07:11] LABS: Diff Status Complete; Hypochromasia 1+
[2017-05-10] MEDS: NOVOLOG SUB-Q SCH ×4 (08:38→22:53)
[2017-05-10] MEDS ORDERED: LOVENOX SUB-Q SCH (10:00)
[2017-05-10] MEDS: PEPCID PO SCH ×2 (11:12→21:59)
--- NOTE | 2017-05-10 12:54 | Progress Note ---
Assessment and Plan Assessment and plan: Patient is 36 yo man with a history of diabetes mellitus type 2, hypertension, dyslipidemia and asthma who presents to [facility] emergency department with left ankle infection -Sepsis with necrotizing cellulitis of the left ankle, poa: Going for surgery today, continue IV antibiotics, consulted ID -Suspected peripheral vascular disease related to diabetes mellitus with poor glycemic control/healing leading to necrotizing skin infection and above: Maintain systemic control -Type 2 diabetes mellitus with complications/hyperglycemia: As slightly scale insulin, ADA diet -Hypertension: Antihypertensive -DVT prophylaxis: Subcutaneous Lovenox was ordered History Interval history: Patient seen and examined. Follow up on current diagnosis/left ankle infection. Overnight uneventful. No cp, sob, n/v or severe headaches. Imaging, old records , testing, labs, nursing notes reviewed. Hospitalist Physical - Physical exam Narrative exam: GEN: WDWN, NAD, AWAKE, ALERT, ORIENTATED x 3 HEENT: NCAT, PERRL, EOMI, OP CLEAR NECK: SUPPLE, NO THYROMEGALY, NO JVD, NO LAD CVS: regular tachycardia, NORMAL S1S2 LUNGS/CHEST: CTA B, NORMAL CHEST EXPANSION B, GOOD AIR ENTRY B ABD: SOFT, NTND, GBS, NO REBOUND OR GUARDING EXT/SKIN: Left medial malleous extensive ulceration, with 2 craters that are packed and necrotic edges, foul-smelling, tracking erythema, redness and warmth , pedal pulses are present. Left big toe also has a stage III ulcer MSK: FROM X 4 EXTREMITIES NEURO: CN 2-12 GROSSLY INTACT, NO FOCAL DEFICITS PSY: CALM - Constitutional Vitals: Temp Pulse Resp BP Pulse Ox 100.2 F H 108 H 18 117/69 94 05/10/17 07:45 05/10/17 07:45 05/10/17 07:45 05/10/17 07:45 05/10/17 07:45 Results - Labs CBC & Chem 7: 05/10/17 05:00 05/10/17 05:00 Labs: Laboratory Last Values WBC 24.2 K/mm3 (4.5-11.0) H 05/10/17 05:00 RBC 4.48 M/mm3 (3.65-5.03) 05/10/17 05:00 Hgb 11.8 gm/dl (11.8-15.2) 05/10/17 05:00 Hct 35.8 % (35.5-45.6) 05/10/17 05:00 MCV 80 fl (84-94) L 05/10/17 05:00 MCH 26 pg (28-32) L 05/10/17 05:00 MCHC 33 % (32-34) 05/10/17 05:00 RDW 13.5 % (13.2-15.2) 05/10/17 05:00 Plt Count 369 K/mm3 (140-440) 05/10/17 05:00 Add Manual Diff Complete 05/10/17 05:00 Total Counted 100 05/10/17 05:00 Seg Neuts % (Manual) 53.0 % (40.0-70.0) 05/10/17 05:00 Band Neutrophils % 23.0 % 05/10/17 05:00 Lymphocytes % (Manual) 16.0 % (13.4-35.0) 05/10/17 05:00 Reactive Lymphs % (Man) 0 % 05/10/17 05:00 Monocytes % (Manual) 4.0 % (0.0-7.3) 05/10/17 05:00 Eosinophils % (Manual) 0 % (0.0-4.3) 05/10/17 05:00 Basophils % (Manual) 2.0 % (0.0-1.8) H 05/10/17 05:00 Metamyelocytes % 2.0 % 05/10/17 05:00 Myelocytes % 0 % 05/10/17 05:00 Promyelocytes % 0 % 05/10/17 05:00 Blast Cells % 0 % 05/10/17 05:00 Nucleated RBC % Not Reportable 05/10/17 05:00 Seg Neutrophils # Man 12.8 K/mm3 (1.8-7.7) H 05/10/17 05:00 Band Neutrophils # 5.6 K/mm3 05/10/17 05:00 Lymphocytes # (Manual) 3.9 K/mm3 (1.2-5.4) 05/10/17 05:00 Abs React Lymphs (Man) 0.0 K/mm3 05/10/17 05:00 Monocytes # (Manual) 1.0 K/mm3 (0.0-0.8) H 05/10/17 05:00 Eosinophils # (Manual) 0.0 K/mm3 (0.0-0.4) 05/10/17 05:00 Basophils # (Manual) 0.5 K/mm3 (0.0-0.1) H 05/10/17 05:00 Metamyelocytes # 0.5 K/mm3 05/10/17 05:00 Myelocytes # 0.0 K/mm3 05/10/17 05:00 Promyelocytes # 0.0 K/mm3 05/10/17 05:00 Blast Cells # 0.0 K/mm3 05/10/17 05:00 WBC Morphology Not Reportable 05/10/17 05:00 Hypersegmented Neuts Not Reportable 05/10/17 05:00 Hyposegmented Neuts Not Reportable 05/10/17 05:00 Hypogranular Neuts Not Reportable 05/10/17 05:00 Smudge Cells Not Reportable 05/10/17 05:00 Toxic Granulation Not Reportable 05/10/17 05:00 Toxic Vacuolation Not Reportable 05/10/17 05:00 Dohle Bodies Not Reportable 05/10/17 05:00 Pelger-Huet Anomaly Not Reportable 05/10/17 05:00 Pranay Rods Not Reportable 05/10/17 05:00 Platelet Estimate Appears normal 05/10/17 05:00 Clumped Platelets Not Reportable 05/10/17 05:00 Plt Clumps, EDTA Not Reportable 05/10/17 05:00 Large Platelets Not Reportable 05/10/17 05:00 Giant Platelets Not Reportable 05/10/17 05:00 Platelet Satelliting Not Reportable 05/10/17 05:00 Plt Morphology Comment Not Reportable 05/10/17 05:00 RBC Morphology Not Reportable 05/10/17 05:00 Dimorphic RBCs Not Reportable 05/10/17 05:00 Polychromasia Not Reportable 05/10/17 05:00 Hypochromasia 1+ 05/10/17 05:00 Poikilocytosis Not Reportable 05/10/17 05:00 Anisocytosis 1+ 05/10/17 05:00 Microcytosis Not Reportable 05/10/17 05:00 Macrocytosis Not Reportable 05/10/17 05:00 Spherocytes Not Reportable 05/10/17 05:00 Pappenheimer Bodies Not Reportable 05/10/17 05:00 Sickle Cells Not Reportable 05/10/17 05:00 Target Cells Not Reportable 05/10/17 05:00 Tear Drop Cells Not Reportable 05/10/17 05:00 Ovalocytes Not Reportable 05/10/17 05:00 Helmet Cells Not Reportable 05/10/17 05:00 [place] Bodies Not Reportable 05/10/17 05:00 [place] Rings Not Reportable 05/10/17 05:00 [place] Cells Not Reportable 05/10/17 05:00 Bite Cells Not Reportable 05/10/17 05:00 Crenated Cell Not Reportable 05/10/17 05:00 Elliptocytes Not Reportable 05/10/17 05:00 Acanthocytes (Spur) Not Reportable 05/10/17 05:00 Rouleaux Not Reportable 05/10/17 05:00 Hemoglobin C Crystals Not Reportable 05/10/17 05:00 Schistocytes Not Reportable 05/10/17 05:00 Malaria parasites Not Reportable 05/10/17 05:00 ESR 6 mm/Hr (0-20) 05/09/17 13:00 [place] Bodies Not Reportable 05/10/17 05:00 Hem Pathologist Commnt No 05/10/17 05:00 PT 19.6 Sec. (12.2-14.9) H 05/09/17 17:32 INR 1.66 (0.87-1.13) H 05/09/17 17:32 VBG pH 7.345 (7.320-7.420) 05/09/17 13:43 Sodium 134 mmol/L (137-145) L D 05/10/17 05:00 Potassium 3.1 mmol/L (3.6-5.0) L D 05/10/17 05:00 Chloride 92.4 mmol/L (98-107) L 05/10/17 05:00 Carbon Dioxide 24 mmol/L (22-30) 05/10/17 05:00 Anion Gap 21 mmol/L 05/10/17 05:00 BUN 9 mg/dL (9-20) 05/10/17 05:00 Creatinine 0.7 mg/dL (0.8-1.5) L 05/10/17 05:00 Estimated GFR > 60 ml/min 05/10/17 05:00 BUN/Creatinine Ratio 12.85 % 05/10/17 05:00 Glucose 159 mg/dL (75-100) H 05/10/17 05:00 POC Glucose 355 (70-105) H 05/09/17 21:22 Hemoglobin A1c 11.3 % (4-6) H 05/09/17 17:32 Ketones Quantitative Moderate (Negative) 05/09/17 13:43 Lactic Acid 1.30 mmol/L (0.7-2.0) 05/09/17 22:46 Calcium 9.0 mg/dL (8.4-10.2) 05/10/17 05:00 Total Bilirubin 0.30 mg/dL (0.1-1.2) 05/10/17 05:00 AST 11 units/L (5-40) 05/10/17 05:00 ALT 6 units/L (7-56) L 05/10/17 05:00 Alkaline Phosphatase 111 units/L (35-129) 05/10/17 05:00 Total Creatine Kinase 25 units/L (55-170) L 05/09/17 13:43 C-Reactive Protein 53.30 mg/dL (0.00-1.30) H 05/09/17 13:00 Total Protein 7.7 g/dL (6.3-8.2) 05/10/17 05:00 Albumin 2.8 g/dL (3.9-5) L 05/10/17 05:00 Albumin/Globulin Ratio 0.6 % 05/10/17 05:00 Triglycerides 239 mg/dL (2-149) H 05/09/17 17:32 Cholesterol 124 mg/dL (50-199) 05/09/17 17:32 LDL Cholesterol Direct 72 mg/dL (50-130) 05/09/17 17:32 HDL Cholesterol 5 mg/dL (40-59) L 05/09/17 17:32 Cholesterol/HDL Ratio 24.80 % 05/09/17 17:32 Urine Color Yellow (Yellow) 05/09/17 14:44 Urine Turbidity Clear (Clear) 05/09/17 14:44 Urine pH 5.0 (5.0-7.0) 05/09/17 14:44 Ur Specific [place] 1.015 (1.003-1.030) 05/09/17 14:44 Urine Protein 30 mg/dl mg/dL (Negative) 05/09/17 14:44 Urine Glucose (UA) >=500 mg/dL (Negative) 05/09/17 14:44 Urine Ketones 80 mg/dL (Negative) 05/09/17 14:44 Urine Blood Mod (Negative) 05/09/17 14:44 Urine Nitrite Neg (Negative) 05/09/17 14:44 Urine Bilirubin Neg (Negative) 05/09/17 14:44 Urine Urobilinogen < 2.0 mg/dL (<2.0) 05/09/17 14:44 Ur Leukocyte Esterase Neg (Negative) 05/09/17 14:44 Urine WBC (Auto) < 1.0 /HPF (0.0-6.0) 05/09/17 14:44 Urine RBC (Auto) 1.0 /HPF (0.0-6.0) 05/09/17 14:44 U Epithel Cells (Auto) < 1.0 /HPF (0-13.0) 05/09/17 14:44 Urine Bacteria (Auto) 1+ /HPF (Negative) 05/09/17 14:44 Urine Mucus Few /HPF 05/09/17 14:44 Blood Type B POSITIVE 05/09/17 17:36 Antibody Screen TNR 05/09/17 17:36 KRISTOPHER Antibody Screen Negative 05/09/17 17:36
--- NOTE | 2017-05-10 15:31 | Consultation ---
History of Present Illness - Reason for Consult Consult date: 05/10/17 Necrotizing Cellulitis Requesting physician: DEBBIE GONSALES - History of Present Illness Mr. Dee is a 36-year-old man with poorly controlled diabetes mellitus who presented with left foot swelling after recent trauma to the foot. He says he bumped into a wall ~2 weeks ago and that his foot became progressively more swollen over several days. He was febrile on admission with a markedly elevated WBC count. Plain film xray of his left foot showed a gas-forming process. An area along the medial ankle was incised and drained yesterday. It was noted that "gas" eminated from the incision during the procedure. He continues to have local pain. He denies other systemic problems. Cultures of the drainage show a possible mixed Gram positive lisa. He is started empirically on Vancomycin and Zosyn. ID consultation is requested for further treatment recommendations. Past History Past Medical History: diabetes, hyperlipidemia, other (asthma) Past Surgical History: tonsillectomy Social history: smoking (1ppd), full code. denies: alcohol abuse, prescription drug abuse, IV drug use Family history: no significant family history Medications and Allergies Allergies Allergy/AdvReac Type Severity Reaction Status Date / Time cefixime [From Suprax] Allergy Hives Verified 05/09/17 14:22 ciprofloxacin [From Cipro] Allergy Unknown Verified 05/09/17 14:22 ciprofloxacin HCl Allergy Unknown Verified 05/09/17 14:22 [From Cipro] Sulfa (Sulfonamide Allergy Unknown Verified 05/09/17 14:22 Antibiotics) sulfamethoxazole Allergy Unknown Verified 05/09/17 14:22 [From Bactrim] trimethoprim [From Bactrim] Allergy Unknown Verified 05/09/17 14:22 Home Medications Medication Instructions Recorded Confirmed Last Taken Type No Known Home Medications [No 05/09/17 05/09/17 Unknown History Reported Home Medications] Active Meds: Active Medications Acetaminophen (Tylenol) 650 mg PO Q4H PRN PRN Reason: Pain MILD(1-3)/Fever >100.5/SIMON Acetaminophen/Hydrocodone Bitart ([place] 5/325) 2 each PO Q6H PRN PRN Reason: Pain, Moderate (4-6) Last Admin: 05/10/17 11:13 Dose: 2 each Bisacodyl (Dulcolax) 10 mg NM QDAY PRN PRN Reason: Constipation unrelieved by MOM Dextrose (D50w (25gm)) 50 ml IV PRN PRN PRN Reason: Hypoglycemia Enoxaparin Sodium (Lovenox) 40 mg SUB-Q QDAY [facility] Last Admin: 05/10/17 11:13 Dose: 40 mg Famotidine (Pepcid) 20 mg PO BID [facility] Last Admin: 05/10/17 11:12 Dose: 20 mg Vancomycin HCl 1,500 mg/ (Sodium Chloride) 530 mls @ 333.333 mls/hr IV Q12H [facility] Last Admin: 05/10/17 06:49 Dose: 333.333 mls/hr Piperacillin Sod/Tazobactam Sod (Zosyn/Ns 4.5gm/100ml) 4.5 gm in 100 mls @ 200 mls/hr IV Q8HR [facility] PRN Reason: Protocol Last Admin: 05/10/17 15:18 Dose: 200 mls/hr Sodium Chloride (Nacl 0.9% 1000 Ml) 1,000 mls @ 125 mls/hr IV DIRECT [facility] Last Admin: 05/09/17 22:02 Dose: 125 mls/hr Clindamycin HCl (Cleocin 900 Mg/50 Ml) 900 mg in 50 mls @ 100 mls/hr IV Q8HR [facility] PRN Reason: Protocol Insulin Aspart (Novolog) 0 units SUB-Q ACHS [facility] PRN Reason: Protocol Last Admin: 05/10/17 13:30 Dose: Not Given Insulin Detemir (Levemir) 40 units SUB-Q QHS [facility] Last Admin: 05/09/17 22:34 Dose: 40 units Magnesium Hydroxide (Milk Of Magnesia) 30 ml PO Q4H PRN PRN Reason: Constipation Morphine Sulfate (Morphine) 2 mg IV Q4H PRN PRN Reason: Pain, Moderate (4-6) Last Admin: 05/09/17 21:34 Dose: 2 mg Ondansetron HCl (Zofran) 4 mg IV Q8H PRN PRN Reason: N/V unrelieved by Reglan Last Admin: 05/10/17 11:14 Dose: 4 mg Vancomycin HCl (Vancomycin Pharmacy To Dose) 1 each IV PKCONSULT [facility] PRN Reason: Protocol Review of Systems All systems: negative Constitutional: fever, chills, no sweats Cardiovascular: edema, no chest pain, no shortness of breath Respiratory: no cough Genitourinary Male: no dysuria Integumentary: no rash, no pruritis Physical Examination - Constitutional Vitals: Vital Signs Temp Pulse Resp BP Pulse Ox 99.3 F 120 H 20 116/78 94 05/10/17 12:48 05/10/17 12:48 05/10/17 12:48 05/10/17 12:48 05/10/17 07:45 Temperature -Last 24 Hours Temperature 99.3 F Temperature 100.2 F Temperature 99.1 F Temperature 101.2 F Temperature 99.9 F General appearance: Present: no acute distress, other (non-toxic appearance) - EENT Eyes: Absent: conjunctival injection - Neck Neck: Present: supple - Respiratory Respiratory effort: normal Respiratory: bilateral: CTA - Cardiovascular Rhythm: regular Heart Sounds: Present: S1 & S2 - Extremities Extremity abnormal: edema (eedma of the left foot to midshin with associated erythema and foul odor from the foot; the area recently drained is packed; there is questionable crepitus of the tissues above the ankles, sensation remains intact) Results - Labs CBC & Chem 7: 05/10/17 05:00 05/10/17 05:00 Labs: Abnormal lab results 05/09/17 05/09/17 05/09/17 Range/Units 17:32 17:32 17:32 WBC (4.5-11.0) K/mm3 MCV (84-94) fl MCH (28-32) pg Basophils % (Manual) (0.0-1.8) % Seg Neutrophils # Man (1.8-7.7) K/mm3 Monocytes # (Manual) (0.0-0.8) K/mm3 Basophils # (Manual) (0.0-0.1) K/mm3 PT 19.6 H (12.2-14.9) Sec. INR 1.66 H (0.87-1.13) Sodium (137-145) mmol/L Potassium (3.6-5.0) mmol/L Chloride (98-107) mmol/L Creatinine (0.8-1.5) mg/dL Glucose (75-100) mg/dL POC Glucose (70-105) Hemoglobin A1c 11.3 H (4-6) % ALT (7-56) units/L Albumin (3.9-5) g/dL Triglycerides 239 H (2-149) mg/dL HDL Cholesterol 5 L (40-59) mg/dL 05/09/17 05/10/17 05/10/17 Range/Units 21:22 05:00 05:00 WBC 24.2 H (4.5-11.0) K/mm3 MCV 80 L (84-94) fl MCH 26 L (28-32) pg Basophils % (Manual) 2.0 H (0.0-1.8) % Seg Neutrophils # Man 12.8 H (1.8-7.7) K/mm3 Monocytes # (Manual) 1.0 H (0.0-0.8) K/mm3 Basophils # (Manual) 0.5 H (0.0-0.1) K/mm3 PT (12.2-14.9) Sec. INR (0.87-1.13) Sodium 134 L D (137-145) mmol/L Potassium 3.1 L D (3.6-5.0) mmol/L Chloride 92.4 L (98-107) mmol/L Creatinine 0.7 L (0.8-1.5) mg/dL Glucose 159 H (75-100) mg/dL POC Glucose 355 H (70-105) Hemoglobin A1c (4-6) % ALT 6 L (7-56) units/L Albumin 2.8 L (3.9-5) g/dL Triglycerides (2-149) mg/dL HDL Cholesterol (40-59) mg/dL Microbiology 05/09/17 13:21 Peripheral/Venous Blood Culture - Preliminary NO GROWTH AFTER 24 HOURS 05/09/17 13:00 Peripheral/Venous Blood Culture - Preliminary NO GROWTH AFTER 24 HOURS 05/09/17 Unknown Ankle - Left Wound Culture - Preliminary Assessment and Plan - Patient Problems (1) Necrotizing fasciitis Current Visit: Yes Status: Acute Plan to address problem: 1. After reviewing the patient's chart, I called and discussed the case with Dr. Gonsales, informing him that my suspicion was high for necrotizing fasciitis. I called and spoke to "Ren" in pharmacy to send Clindamycin to the floor STAT for administration. Once I examined the patient's foot, my suspicions were confirmed and I am concerned that Mr. Dee needs emergent surgical attention to his foot. I called and spoke to Dr. Gonsales again, who provided contact information for Dr. Garcia, orthopedist. I called Dr. Garcia, but the call went to his voicemail box, which was full. Dr. Gonsales agreed to continue trying to reach Dr. Garcia through alternate means. 2. Patient may require monitoring in the ICU and possibly additional debridement or amputation. 3. Continue current antimicrobials for now. 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
[2017-05-10] MEDS: CLEOCIN 900 MG/50 mL 900 MG/50 ML BAG IV SCH ×2 (15:49→22:10)
--- NOTE | 2017-05-10 21:00 | Progress Note ---
Assessment and Plan Assessment - infected left leg and ankle Plan- continue IVAB and observation, may require further debridement in OR if no further improvement noted Subjective Date of service: 05/10/17 Interval history: States his leg feels much better today than yesterday, still having some pain and discomfort otherwise feels much better Objective Vital signs: Vital Signs - 12hr 05/10/17 05/10/17 12:48 16:40 Temperature 99.3 F 98.7 F Pulse Rate 120 H 102 H Respiratory 20 20 Rate Blood Pressure 116/78 114/60 O2 Sat by Pulse 94 Oximetry Narrative Exam: On physical exam the left lower extremity there is still some moderate drainage from the incisional wounds, he appears to be less redness today he still able to move the ankle joint with minimal discomfort, I do not palpate any areas of fluctuance indicative of abscess formation - Labs CBC & BMP: 05/10/17 05:00 05/10/17 05:00 Labs: Abnormal lab results 05/09/17 05/10/17 05/10/17 Range/Units 21:22 05:00 05:00 WBC 24.2 H (4.5-11.0) K/mm3 MCV 80 L (84-94) fl MCH 26 L (28-32) pg Basophils % (Manual) 2.0 H (0.0-1.8) % Seg Neutrophils # Man 12.8 H (1.8-7.7) K/mm3 Monocytes # (Manual) 1.0 H (0.0-0.8) K/mm3 Basophils # (Manual) 0.5 H (0.0-0.1) K/mm3 Sodium 134 L D (137-145) mmol/L Potassium 3.1 L D (3.6-5.0) mmol/L Chloride 92.4 L (98-107) mmol/L Creatinine 0.7 L (0.8-1.5) mg/dL Glucose 159 H (75-100) mg/dL POC Glucose 355 H (70-105) ALT 6 L (7-56) units/L Albumin 2.8 L (3.9-5) g/dL
[2017-05-10] MEDS: MORPHINE IV PRN (22:01)
[2017-05-10] MEDS: LEVEMIR SUB-Q SCH (22:52)
[2017-05-11 04:49] LABS: Hematocrit 33.8 % (35.5-45.6); Hemoglobin 11.2 gm/dl (11.8-15.2); Mean Corpuscular HGB Conc 33 % (32-34); Mean Corpuscular Hemoglobin 26 pg (28-32); Mean Corpuscular Volume 79 fl (84-94); Platelet Count 422 K/mm3 (140-440); Red Blood Count 4.27 M/mm3 (3.65-5.03); Red Cell Distribution Width 13.5 % (13.2-15.2); White Blood Count 17.2 K/mm3 (4.5-11.0)
[2017-05-11 04:51] LABS: Anion Gap 21 mmol/L; Blood Urea Nitrogen 6 mg/dL (9-20); Carbon Dioxide 24 mmol/L (22-30); Chloride 91.8 mmol/L (98-107); Glucose 128 mg/dL (75-100); Sodium 134 mmol/L (137-145)
[2017-05-11 04:55] LABS: Potassium 2.6 mmol/L (3.6-5.0)
[2017-05-11] MEDS: CLEOCIN 900 MG/50 mL 900 MG/50 ML BAG IV SCH ×2 (04:59→14:13)
[2017-05-11] MEDS: ZOSYN/NS 4.5GM/100ML 4.5 GM/100 ML VIAL IV SCH ×2 (05:02→19:03)
[2017-05-11] MEDS: VANCOMYCIN 1,500 MG in NACL 0.9% 500 ML 500 ML IV SCH ×2 (05:13→18:00)
[2017-05-11] MEDS: MORPHINE IV PRN ×4 (06:18→23:58)
[2017-05-11] MEDS: KCL 10MEQ/100ML 10 MEQ/100 ML BAG IV SCH ×4 (06:30→12:41)
[2017-05-11] MEDS: NOVOLOG SUB-Q SCH ×3 (09:14→19:03)
[2017-05-11] MEDS: PEPCID PO SCH (09:49)
--- NOTE | 2017-05-11 13:05 | Progress Note ---
Assessment and Plan Assessment and plan: Patient is 36 yo man with a history of diabetes mellitus type 2, hypertension, dyslipidemia and asthma who presents to [facility] emergency department with left ankle infection -Sepsis with necrotizing cellulitis of the left ankle, poa: Going for surgery today, continue IV antibiotics, consulted ID -Suspected peripheral vascular disease related to diabetes mellitus with poor glycemic control/healing leading to necrotizing skin infection and above: Maintain systemic control -Type 2 diabetes mellitus with complications/hyperglycemia: As slightly scale insulin, ADA diet -Hypertension: Antihypertensive -DVT prophylaxis: Subcutaneous Lovenox was ordered 05/10/17 d/w Infectious Disease, Dr. Shahid. Concern is necrotizing fascitis. I have also reached out to Ortho Surgeon, Dr. Garcia, who did bedside I-n-D, to re-evaluate. Patient may need additional/extensive debridement. So, I made patient NPO after midnight and reduced his long acting insulin dose (levemir tonight) by half. I will add color television console monitor also 05/11/17 seen and examined and discussed with Dr. Garcia at bedside. Patient is going back to surgery today History Interval history: Patient seen and examined. Follow up on current diagnosis/left ankle infection. Overnight uneventful. No cp, sob, n/v or severe headaches. Imaging, old records , testing, labs, nursing notes reviewed. Hospitalist Physical - Physical exam Narrative exam: GEN: WDWN, NAD, AWAKE, ALERT, ORIENTATED x 3 HEENT: NCAT, PERRL, EOMI, OP CLEAR NECK: SUPPLE, NO THYROMEGALY, NO JVD, NO LAD CVS: regular tachycardia, NORMAL S1S2 LUNGS/CHEST: CTA B, NORMAL CHEST EXPANSION B, GOOD AIR ENTRY B ABD: SOFT, NTND, GBS, NO REBOUND OR GUARDING EXT/SKIN: Left medial malleous extensive ulceration, with 2 craters that are packed and necrotic edges, foul-smelling, tracking erythema, redness and warmth , pedal pulses are present. Left big toe also has a stage III ulcer MSK: FROM X 4 EXTREMITIES NEURO: CN 2-12 GROSSLY INTACT, NO FOCAL DEFICITS PSY: CALM - Constitutional Vitals: Temp Pulse Resp BP Pulse Ox 100.1 F H 101 H 18 110/58 94 05/11/17 08:05 05/11/17 08:05 05/11/17 08:05 05/11/17 08:05 05/11/17 08:05 General appearance: Present: no acute distress, other (non-toxic appearance) Results - Labs CBC & Chem 7: 05/11/17 04:07 05/11/17 04:07 Labs: Laboratory Last Values WBC 17.2 K/mm3 (4.5-11.0) H 05/11/17 04:07 RBC 4.27 M/mm3 (3.65-5.03) 05/11/17 04:07 Hgb 11.2 gm/dl (11.8-15.2) L 05/11/17 04:07 Hct 33.8 % (35.5-45.6) L 05/11/17 04:07 MCV 79 fl (84-94) L 05/11/17 04:07 MCH 26 pg (28-32) L 05/11/17 04:07 MCHC 33 % (32-34) 05/11/17 04:07 RDW 13.5 % (13.2-15.2) 05/11/17 04:07 Plt Count 422 K/mm3 (140-440) 05/11/17 04:07 Add Manual Diff Complete 05/10/17 05:00 Total Counted 100 05/10/17 05:00 Seg Neuts % (Manual) 53.0 % (40.0-70.0) 05/10/17 05:00 Band Neutrophils % 23.0 % 05/10/17 05:00 Lymphocytes % (Manual) 16.0 % (13.4-35.0) 05/10/17 05:00 Reactive Lymphs % (Man) 0 % 05/10/17 05:00 Monocytes % (Manual) 4.0 % (0.0-7.3) 05/10/17 05:00 Eosinophils % (Manual) 0 % (0.0-4.3) 05/10/17 05:00 Basophils % (Manual) 2.0 % (0.0-1.8) H 05/10/17 05:00 Metamyelocytes % 2.0 % 05/10/17 05:00 Myelocytes % 0 % 05/10/17 05:00 Promyelocytes % 0 % 05/10/17 05:00 Blast Cells % 0 % 05/10/17 05:00 Nucleated RBC % Not Reportable 05/10/17 05:00 Seg Neutrophils # Man 12.8 K/mm3 (1.8-7.7) H 05/10/17 05:00 Band Neutrophils # 5.6 K/mm3 05/10/17 05:00 Lymphocytes # (Manual) 3.9 K/mm3 (1.2-5.4) 05/10/17 05:00 Abs React Lymphs (Man) 0.0 K/mm3 05/10/17 05:00 Monocytes # (Manual) 1.0 K/mm3 (0.0-0.8) H 05/10/17 05:00 Eosinophils # (Manual) 0.0 K/mm3 (0.0-0.4) 05/10/17 05:00 Basophils # (Manual) 0.5 K/mm3 (0.0-0.1) H 05/10/17 05:00 Metamyelocytes # 0.5 K/mm3 05/10/17 05:00 Myelocytes # 0.0 K/mm3 05/10/17 05:00 Promyelocytes # 0.0 K/mm3 05/10/17 05:00 Blast Cells # 0.0 K/mm3 05/10/17 05:00 WBC Morphology Not Reportable 05/10/17 05:00 Hypersegmented Neuts Not Reportable 05/10/17 05:00 Hyposegmented Neuts Not Reportable 05/10/17 05:00 Hypogranular Neuts Not Reportable 05/10/17 05:00 Smudge Cells Not Reportable 05/10/17 05:00 Toxic Granulation Not Reportable 05/10/17 05:00 Toxic Vacuolation Not Reportable 05/10/17 05:00 Dohle Bodies Not Reportable 05/10/17 05:00 Pelger-Huet Anomaly Not Reportable 05/10/17 05:00 Pranay Rods Not Reportable 05/10/17 05:00 Platelet Estimate Appears normal 05/10/17 05:00 Clumped Platelets Not Reportable 05/10/17 05:00 Plt Clumps, EDTA Not Reportable 05/10/17 05:00 Large Platelets Not Reportable 05/10/17 05:00 Giant Platelets Not Reportable 05/10/17 05:00 Platelet Satelliting Not Reportable 05/10/17 05:00 Plt Morphology Comment Not Reportable 05/10/17 05:00 RBC Morphology Not Reportable 05/10/17 05:00 Dimorphic RBCs Not Reportable 05/10/17 05:00 Polychromasia Not Reportable 05/10/17 05:00 Hypochromasia 1+ 05/10/17 05:00 Poikilocytosis Not Reportable 05/10/17 05:00 Anisocytosis 1+ 05/10/17 05:00 Microcytosis Not Reportable 05/10/17 05:00 Macrocytosis Not Reportable 05/10/17 05:00 Spherocytes Not Reportable 05/10/17 05:00 Pappenheimer Bodies Not Reportable 05/10/17 05:00 Sickle Cells Not Reportable 05/10/17 05:00 Target Cells Not Reportable 05/10/17 05:00 Tear Drop Cells Not Reportable 05/10/17 05:00 Ovalocytes Not Reportable 05/10/17 05:00 Helmet Cells Not Reportable 05/10/17 05:00 [place] Bodies Not Reportable 05/10/17 05:00 [place] Rings Not Reportable 05/10/17 05:00 Haile Cells Not Reportable 05/10/17 05:00 Bite Cells Not Reportable 05/10/17 05:00 Crenated Cell Not Reportable 05/10/17 05:00 Elliptocytes Not Reportable 05/10/17 05:00 Acanthocytes (Spur) Not Reportable 05/10/17 05:00 Rouleaux Not Reportable 05/10/17 05:00 Hemoglobin C Crystals Not Reportable 05/10/17 05:00 Schistocytes Not Reportable 05/10/17 05:00 Malaria parasites Not Reportable 05/10/17 05:00 ESR 6 mm/Hr (0-20) 05/09/17 13:00 [place] Bodies Not Reportable 05/10/17 05:00 Hem Pathologist Commnt No 05/10/17 05:00 PT 19.6 Sec. (12.2-14.9) H 05/09/17 17:32 INR 1.66 (0.87-1.13) H 05/09/17 17:32 VBG pH 7.345 (7.320-7.420) 05/09/17 13:43 Sodium 134 mmol/L (137-145) L 05/11/17 04:07 Potassium 2.6 mmol/L (3.6-5.0) L* 05/11/17 04:07 Chloride 91.8 mmol/L (98-107) L 05/11/17 04:07 Carbon Dioxide 24 mmol/L (22-30) 05/11/17 04:07 Anion Gap 21 mmol/L 05/11/17 04:07 BUN 6 mg/dL (9-20) L 05/11/17 04:07 Creatinine 0.8 mg/dL (0.8-1.5) 05/11/17 04:07 Estimated GFR > 60 ml/min 05/11/17 04:07 BUN/Creatinine Ratio 7.50 % 05/11/17 04:07 Glucose 128 mg/dL (75-100) H 05/11/17 04:07 POC Glucose 110 (70-105) H 05/11/17 11:37 Hemoglobin A1c 11.3 % (4-6) H 05/09/17 17:32 Ketones Quantitative Moderate (Negative) 05/09/17 13:43 Lactic Acid 1.30 mmol/L (0.7-2.0) 05/09/17 22:46 Calcium 8.0 mg/dL (8.4-10.2) L 05/11/17 04:07 Total Bilirubin 0.30 mg/dL (0.1-1.2) 05/10/17 05:00 AST 11 units/L (5-40) 05/10/17 05:00 ALT 6 units/L (7-56) L 05/10/17 05:00 Alkaline Phosphatase 111 units/L (35-129) 05/10/17 05:00 Total Creatine Kinase 25 units/L (55-170) L 05/09/17 13:43 C-Reactive Protein 53.30 mg/dL (0.00-1.30) H 05/09/17 13:00 Total Protein 7.7 g/dL (6.3-8.2) 05/10/17 05:00 Albumin 2.8 g/dL (3.9-5) L 05/10/17 05:00 Albumin/Globulin Ratio 0.6 % 05/10/17 05:00 Triglycerides 239 mg/dL (2-149) H 05/09/17 17:32 Cholesterol 124 mg/dL (50-199) 05/09/17 17:32 LDL Cholesterol Direct 72 mg/dL (50-130) 05/09/17 17:32 HDL Cholesterol 5 mg/dL (40-59) L 05/09/17 17:32 Cholesterol/HDL Ratio 24.80 % 05/09/17 17:32 Urine Color Yellow (Yellow) 05/09/17 14:44 Urine Turbidity Clear (Clear) 05/09/17 14:44 Urine pH 5.0 (5.0-7.0) 05/09/17 14:44 Ur Specific [place] 1.015 (1.003-1.030) 05/09/17 14:44 Urine Protein 30 mg/dl mg/dL (Negative) 05/09/17 14:44 Urine Glucose (UA) >=500 mg/dL (Negative) 05/09/17 14:44 Urine Ketones 80 mg/dL (Negative) 05/09/17 14:44 Urine Blood Mod (Negative) 05/09/17 14:44 Urine Nitrite Neg (Negative) 05/09/17 14:44 Urine Bilirubin Neg (Negative) 05/09/17 14:44 Urine Urobilinogen < 2.0 mg/dL (<2.0) 05/09/17 14:44 Ur Leukocyte Esterase Neg (Negative) 05/09/17 14:44 Urine WBC (Auto) < 1.0 /HPF (0.0-6.0) 05/09/17 14:44 Urine RBC (Auto) 1.0 /HPF (0.0-6.0) 05/09/17 14:44 U Epithel Cells (Auto) < 1.0 /HPF (0-13.0) 05/09/17 14:44 Urine Bacteria (Auto) 1+ /HPF (Negative) 05/09/17 14:44 Urine Mucus Few /HPF 05/09/17 14:44 Blood Type B POSITIVE 05/09/17 17:36 Antibody Screen TNR 05/09/17 17:36 KRISTOPHER Antibody Screen Negative 05/09/17 17:36
[2017-05-11] MEDS ORDERED: KCL 10MEQ/100ML 10 MEQ/100 ML BAG IV SCH (14:00)
[2017-05-11] MEDS ORDERED: DIPRIVAN 10 MG/ML IV ONE ×4 (15:18→17:24)
[2017-05-11] MEDS ORDERED: SUBLIMAZE ONE (15:18)
--- NOTE | 2017-05-11 15:59 | Anesthesia Consultation ---
Anesthesia Consult and Med Hx Date of service: 05/11/17 - Airway Anesthetic Teeth Evaluation: Good ROM Head & Neck: Adequate Mental/Hyoid Distance: Adequate Mallampati Class: Class II Intubation Access Assessment: Probably Good - Pulmonary Exam CTA: Yes - Cardiac Exam Cardiac Exam: RRR - Pre-Operative Health Status ASA Pre-Surgery Classification: ASA3 Proposed Anesthetic Plan: General - Pulmonary Hx Smoking: Yes Hx Asthma: Yes (breathing at baseline) Hx Pneumonia: No - Gastrointestinal Hx Gastroesophageal Reflux Disease: No
--- NOTE | 2017-05-11 15:59 | Anesthesia Day of Surgery ---
Anesthesia Day of Surgery - Day of Surgery Patient Examined: Yes Patient H&P Reviewed: Yes Patient is NPO: Yes
[2017-05-11] MEDS ORDERED: PROVENTIL IH NR (16:00)
[2017-05-11] MEDS ORDERED: VERSED ONE (16:49)
[2017-05-11] MEDS ORDERED: NACL 0.9% 1000 ML 1,000 ML ONE (17:12)
--- NOTE | 2017-05-11 17:42 | Post Anesthesia Evaluation ---
- Post Anesthesia Evaluation Patient Participated: Yes Airway Patent: Yes Stable Respiratory Function: Yes Temp > 96.8F: Yes Pain Manageable: Yes Adequeate Hydration: Yes Anesthesia Complications: No Block Receding Appropriately: Not Applicable
--- NOTE | 2017-05-11 17:53 | Procedure Note ---
Date of procedure: 05/11/17 Pre-op diagnosis: necrotizing fasciitis left leg and ankle Post-op diagnosis: same Procedure: Procedure Debridement and irrigation left ankle Indications A 36-year-old male who developed severe swelling and pain left ankle after a minor injury couple weeks ago he was seen in the emergency room x-rays were taken revealing gas in the soft tissue initially underwent incision and drainage however over the next day or so the skin overlying the medial aspect of the ankle became necrotic moderate amount of foul-smelling pus. Procedure The patient was brought to the OR after being given a spinal anesthesia the left lower extremity was prepped and draped in the usual sterile manner, a timeout procedure was done to identify the patient and a proper operative site. Next the necrotic skin and tissue was debrided using a #15 blade patient was noted to have involvement of not only the skin with some of the tendinous tissue along the medial aspect of the ankle the foot was not involved however. After debriding a significant amount skin and soft tissue the wound was then copiously irrigated and was closed with simple 4 x 4's ABDs pads and Kerlix gauze rolls. 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 He was transferred to postop recovery in stable condition Anesthesia: regional Surgeon: VIRAL ONEILL (first assistant manager Matthias Cobos) Pathology: list (necrotic skin and tissue left leg) Specimen disposition: to lab Condition: stable Disposition: PACU
[2017-05-11] MEDS ORDERED: SODIUM CHLORIDE FLUSH SYRINGE 10 ML IV NR (18:00)
[2017-05-11] MEDS: DILAUDID IV PRN ×2 (18:00→18:10)
[2017-05-11] MEDS ORDERED: DILAUDID ONE (18:02)
[2017-05-11] MEDS: NACL 0.9% 1000 ML 1,000 ML IV SCH (23:56)
[2017-05-12] MEDS: KCL 10MEQ/100ML 10 MEQ/100 ML BAG IV SCH ×4 (00:01→02:53)
[2017-05-12] MEDS: ZOSYN/NS 4.5GM/100ML 4.5 GM/100 ML VIAL IV SCH ×2 (00:16→06:06)
[2017-05-12] MEDS: NOVOLOG SUB-Q SCH ×4 (00:25→17:24)
[2017-05-12] MEDS: LEVEMIR SUB-Q SCH (00:25)
[2017-05-12] MEDS: PEPCID PO SCH ×3 (00:25→22:04)
[2017-05-12] MEDS: CLEOCIN 900 MG/50 mL 900 MG/50 ML BAG IV SCH ×4 (01:10→22:04)
[2017-05-12] MEDS: K-DUR PO ONE (01:10)
[2017-05-12] MEDS ORDERED: K-DUR PO ONE ×2 (02:00→09:00)
[2017-05-12 05:29] LABS: Hematocrit 32.9 % (35.5-45.6); Hemoglobin 10.9 gm/dl (11.8-15.2); Mean Corpuscular HGB Conc 33 % (32-34); Mean Corpuscular Hemoglobin 26 pg (28-32); Mean Corpuscular Volume 79 fl (84-94); Platelet Count 490 K/mm3 (140-440); Red Cell Distribution Width 13.6 % (13.2-15.2); White Blood Count 13.6 K/mm3 (4.5-11.0)
[2017-05-12 05:48] LABS: Anion Gap 19 mmol/L; BUN/Creatinine Ratio 7.14; Blood Urea Nitrogen 5 mg/dL (9-20); Calcium 7.9 mg/dL (8.4-10.2); Carbon Dioxide 25 mmol/L (22-30); Chloride 95.9 mmol/L (98-107); Glucose 236 mg/dL (75-100); Potassium 3.3 mmol/L (3.6-5.0); Sodium 137 mmol/L (137-145)
[2017-05-12] MEDS: MORPHINE IV PRN ×5 (06:14→23:59)
--- NOTE | 2017-05-12 07:32 | Progress Note ---
Assessment and Plan - Patient Problems (1) Necrotizing fasciitis Current Visit: Yes Status: Acute Plan to address problem: 1. Will continue with a regimen of Vancomycin and Clindamycin. Patient is multiple drug class allergies. 2. Duration of therapy TBD based of need of further debridement, etc. (2) Diabetes mellitus Current Visit: Yes Status: Acute Qualifiers: Diabetes mellitus type: type 2 Diabetes mellitus complication status: with hyperglycemia Diabetes mellitus complication detail: D Diabetic retinopathy severity: D Proliferative retinopathy type: P Diabetes mellitus macular edema: D Diabetes mellitus nursing home insulin use: unspecified rat exterminator insulin use status Laterality: L Chronic kidney disease stage: C Qualified Code(s): E11.65 - Type 2 diabetes mellitus with hyperglycemia Subjective Date of service: 05/12/17 Interval history: Patient is POD # 1 debridement of the left ankle. Local pain. No new events. Objective - Constitutional Vitals: Vital Signs Temp Pulse Resp BP Pulse Ox 99.9 F H 99 H 18 134/70 99 05/11/17 23:00 05/11/17 23:00 05/12/17 06:14 05/11/17 23:00 05/11/17 23:00 Temperature -Last 24 Hours Temperature 99.9 F Temperature 98.8 F Temperature 102.5 F Temperature 99.8 F Temperature 100.1 F General appearance: Present: no acute distress - Respiratory Respiratory: bilateral: CTA - Cardiovascular Rhythm: regular Heart Sounds: Present: S1 & S2 Extremity abnormal: edema (left foot edema, wrapped wound, no discernible odor) - Gastrointestinal General gastrointestinal: Present: soft, non-distended - Integumentary Integumentary: no rash - Psychiatric Psychiatric: appropriate mood/affect - Labs CBC & Chem 7: 05/12/17 05:08 05/12/17 05:08 Labs: Abnormal lab results 05/11/17 05/11/17 05/11/17 Range/Units 11:37 13:38 15:56 WBC (4.5-11.0) K/mm3 Hgb (11.8-15.2) gm/dl Hct (35.5-45.6) % MCV (84-94) fl MCH (28-32) pg Plt Count (140-440) K/mm3 Potassium 3.0 L (3.6-5.0) mmol/L Chloride (98-107) mmol/L BUN (9-20) mg/dL Creatinine (0.8-1.5) mg/dL Glucose (75-100) mg/dL POC Glucose 110 H 155 H (70-105) Calcium (8.4-10.2) mg/dL Magnesium (1.7-2.3) mg/dL Vancomycin Trough (5.0-20.0) ug/mL 05/11/17 05/11/17 05/12/17 Range/Units 17:44 21:12 05:08 WBC (4.5-11.0) K/mm3 Hgb (11.8-15.2) gm/dl Hct (35.5-45.6) % MCV (84-94) fl MCH (28-32) pg Plt Count (140-440) K/mm3 Potassium (3.6-5.0) mmol/L Chloride (98-107) mmol/L BUN (9-20) mg/dL Creatinine (0.8-1.5) mg/dL Glucose (75-100) mg/dL POC Glucose 183 H 341 H (70-105) Calcium (8.4-10.2) mg/dL Magnesium (1.7-2.3) mg/dL Vancomycin Trough 2.4 L (5.0-20.0) ug/mL 05/12/17 05/12/17 05/12/17 Range/Units 05:08 05:08 06:42 WBC 13.6 H (4.5-11.0) K/mm3 Hgb 10.9 L (11.8-15.2) gm/dl Hct 32.9 L (35.5-45.6) % MCV 79 L (84-94) fl MCH 26 L (28-32) pg Plt Count 490 H (140-440) K/mm3 Potassium 3.3 L (3.6-5.0) mmol/L Chloride 95.9 L (98-107) mmol/L BUN 5 L (9-20) mg/dL Creatinine 0.7 L (0.8-1.5) mg/dL Glucose 236 H (75-100) mg/dL POC Glucose 249 H (70-105) Calcium 7.9 L (8.4-10.2) mg/dL Magnesium 2.40 H (1.7-2.3) mg/dL Vancomycin Trough (5.0-20.0) ug/mL Microbiology 05/09/17 13:21 Peripheral/Venous Blood Culture - Preliminary NO GROWTH AFTER 48 HOURS 05/09/17 13:00 Peripheral/Venous Blood Culture - Preliminary NO GROWTH AFTER 48 HOURS 05/09/17 Unknown Ankle - Left Wound Culture - Final Beta Hemolytic Strep Group B
[2017-05-12] MEDS: VANCOMYCIN 1,500 MG in NACL 0.9% 500 ML 500 ML IV SCH (08:50)
[2017-05-12] MEDS: NACL 0.9% 1000 ML 1,000 ML IV SCH ×2 (08:51→19:06)
--- NOTE | 2017-05-12 13:58 | Progress Note ---
Assessment and Plan Assessment and plan: Patient is 36 yo man with a history of diabetes mellitus type 2, hypertension, dyslipidemia and asthma who presents to [facility] emergency department with left ankle infection -Sepsis with necrotizing cellulitis of the left ankle, poa: Going for surgery today, continue IV antibiotics, consulted ID -Suspected peripheral vascular disease related to diabetes mellitus with poor glycemic control/healing leading to necrotizing skin infection and above: Maintain systemic control -Type 2 diabetes mellitus with complications/hyperglycemia: As slightly scale insulin, ADA diet -Hypertension: Antihypertensive -DVT prophylaxis: Subcutaneous Lovenox was ordered 05/10/17 d/w Infectious Disease, Dr. Shahid. Concern is necrotizing fascitis. I have also reached out to Ortho Surgeon, Dr. Garcia, who did bedside I-n-D, to re-evaluate. Patient may need additional/extensive debridement. So, I made patient NPO after midnight and reduced his long acting insulin dose (levemir tonight) by half. I will add surveillance system monitor also 05/11/17 seen and examined and discussed with Dr. Garcia at bedside. Patient went back to surgery 05/12/17: wbc decreasing, afebrile since debribement, potassium replaced, wound care consulted, continue abx History Interval history: Patient seen and examined. Follow up on current diagnosis/left ankle infection. Overnight uneventful. No cp, sob, n/v or severe headaches. Imaging, old records , testing, labs, nursing notes reviewed. Hospitalist Physical - Physical exam Narrative exam: GEN: WDWN, NAD, AWAKE, ALERT, ORIENTATED x 3 HEENT: NCAT, PERRL, EOMI, OP CLEAR NECK: SUPPLE, NO THYROMEGALY, NO JVD, NO LAD CVS: regular tachycardia, NORMAL S1S2 LUNGS/CHEST: CTA B, NORMAL CHEST EXPANSION B, GOOD AIR ENTRY B ABD: SOFT, NTND, GBS, NO REBOUND OR GUARDING EXT/SKIN: Left medial malleous extensive ulceration, with 2 craters that are packed and necrotic edges, foul-smelling, tracking erythema, redness and warmth , pedal pulses are present. Left big toe also has a stage III ulcer MSK: FROM X 4 EXTREMITIES NEURO: CN 2-12 GROSSLY INTACT, NO FOCAL DEFICITS PSY: CALM - Constitutional Vitals: Temp Pulse Resp BP Pulse Ox 97.6 F 104 H 18 122/74 97 05/12/17 12:00 05/12/17 12:00 05/12/17 12:00 05/12/17 12:00 05/12/17 12:00 General appearance: Present: no acute distress Results - Labs CBC & Chem 7: 05/12/17 05:08 05/12/17 05:08 Labs: Laboratory Last Values WBC 13.6 K/mm3 (4.5-11.0) H 05/12/17 05:08 RBC 4.20 M/mm3 (3.65-5.03) 05/12/17 05:08 Hgb 10.9 gm/dl (11.8-15.2) L 05/12/17 05:08 Hct 32.9 % (35.5-45.6) L 05/12/17 05:08 MCV 79 fl (84-94) L 05/12/17 05:08 MCH 26 pg (28-32) L 05/12/17 05:08 MCHC 33 % (32-34) 05/12/17 05:08 RDW 13.6 % (13.2-15.2) 05/12/17 05:08 Plt Count 490 K/mm3 (140-440) H 05/12/17 05:08 Add Manual Diff Complete 05/10/17 05:00 Total Counted 100 05/10/17 05:00 Seg Neuts % (Manual) 53.0 % (40.0-70.0) 05/10/17 05:00 Band Neutrophils % 23.0 % 05/10/17 05:00 Lymphocytes % (Manual) 16.0 % (13.4-35.0) 05/10/17 05:00 Reactive Lymphs % (Man) 0 % 05/10/17 05:00 Monocytes % (Manual) 4.0 % (0.0-7.3) 05/10/17 05:00 Eosinophils % (Manual) 0 % (0.0-4.3) 05/10/17 05:00 Basophils % (Manual) 2.0 % (0.0-1.8) H 05/10/17 05:00 Metamyelocytes % 2.0 % 05/10/17 05:00 Myelocytes % 0 % 05/10/17 05:00 Promyelocytes % 0 % 05/10/17 05:00 Blast Cells % 0 % 05/10/17 05:00 Nucleated RBC % Not Reportable 05/10/17 05:00 Seg Neutrophils # Man 12.8 K/mm3 (1.8-7.7) H 05/10/17 05:00 Band Neutrophils # 5.6 K/mm3 05/10/17 05:00 Lymphocytes # (Manual) 3.9 K/mm3 (1.2-5.4) 05/10/17 05:00 Abs React Lymphs (Man) 0.0 K/mm3 05/10/17 05:00 Monocytes # (Manual) 1.0 K/mm3 (0.0-0.8) H 05/10/17 05:00 Eosinophils # (Manual) 0.0 K/mm3 (0.0-0.4) 05/10/17 05:00 Basophils # (Manual) 0.5 K/mm3 (0.0-0.1) H 05/10/17 05:00 Metamyelocytes # 0.5 K/mm3 05/10/17 05:00 Myelocytes # 0.0 K/mm3 05/10/17 05:00 Promyelocytes # 0.0 K/mm3 05/10/17 05:00 Blast Cells # 0.0 K/mm3 05/10/17 05:00 WBC Morphology Not Reportable 05/10/17 05:00 Hypersegmented Neuts Not Reportable 05/10/17 05:00 Hyposegmented Neuts Not Reportable 05/10/17 05:00 Hypogranular Neuts Not Reportable 05/10/17 05:00 Smudge Cells Not Reportable 05/10/17 05:00 Toxic Granulation Not Reportable 05/10/17 05:00 Toxic Vacuolation Not Reportable 05/10/17 05:00 Dohle Bodies Not Reportable 05/10/17 05:00 Pelger-Huet Anomaly Not Reportable 05/10/17 05:00 Pranay Rods Not Reportable 05/10/17 05:00 Platelet Estimate Appears normal 05/10/17 05:00 Clumped Platelets Not Reportable 05/10/17 05:00 Plt Clumps, EDTA Not Reportable 05/10/17 05:00 Large Platelets Not Reportable 05/10/17 05:00 Giant Platelets Not Reportable 05/10/17 05:00 Platelet Satelliting Not Reportable 05/10/17 05:00 Plt Morphology Comment Not Reportable 05/10/17 05:00 RBC Morphology Not Reportable 05/10/17 05:00 Dimorphic RBCs Not Reportable 05/10/17 05:00 Polychromasia Not Reportable 05/10/17 05:00 Hypochromasia 1+ 05/10/17 05:00 Poikilocytosis Not Reportable 05/10/17 05:00 Anisocytosis 1+ 05/10/17 05:00 Microcytosis Not Reportable 05/10/17 05:00 Macrocytosis Not Reportable 05/10/17 05:00 Spherocytes Not Reportable 05/10/17 05:00 Pappenheimer Bodies Not Reportable 05/10/17 05:00 Sickle Cells Not Reportable 05/10/17 05:00 Target Cells Not Reportable 05/10/17 05:00 Tear Drop Cells Not Reportable 05/10/17 05:00 Ovalocytes Not Reportable 05/10/17 05:00 Helmet Cells Not Reportable 05/10/17 05:00 Lim-[place] Bodies Not Reportable 05/10/17 05:00 [place] Rings Not Reportable 05/10/17 05:00 Haile Cells Not Reportable 05/10/17 05:00 Bite Cells Not Reportable 05/10/17 05:00 Crenated Cell Not Reportable 05/10/17 05:00 Elliptocytes Not Reportable 05/10/17 05:00 Acanthocytes (Spur) Not Reportable 05/10/17 05:00 Rouleaux Not Reportable 05/10/17 05:00 Hemoglobin C Crystals Not Reportable 05/10/17 05:00 Schistocytes Not Reportable 05/10/17 05:00 Malaria parasites Not Reportable 05/10/17 05:00 ESR 6 mm/Hr (0-20) 05/09/17 13:00 [place] Bodies Not Reportable 05/10/17 05:00 Hem Pathologist Commnt No 05/10/17 05:00 PT 19.6 Sec. (12.2-14.9) H 05/09/17 17:32 INR 1.66 (0.87-1.13) H 05/09/17 17:32 VBG pH 7.345 (7.320-7.420) 05/09/17 13:43 Sodium 137 mmol/L (137-145) 05/12/17 05:08 Potassium 3.3 mmol/L (3.6-5.0) L 05/12/17 05:08 Chloride 95.9 mmol/L (98-107) L 05/12/17 05:08 Carbon Dioxide 25 mmol/L (22-30) 05/12/17 05:08 Anion Gap 19 mmol/L 05/12/17 05:08 BUN 5 mg/dL (9-20) L 05/12/17 05:08 Creatinine 0.7 mg/dL (0.8-1.5) L 05/12/17 05:08 Estimated GFR > 60 ml/min 05/12/17 05:08 BUN/Creatinine Ratio 7.14 % 05/12/17 05:08 Glucose 236 mg/dL (75-100) H 05/12/17 05:08 POC Glucose 109 (70-105) H 05/12/17 12:05 Hemoglobin A1c 11.3 % (4-6) H 05/09/17 17:32 Ketones Quantitative Moderate (Negative) 05/09/17 13:43 Lactic Acid 1.30 mmol/L (0.7-2.0) 05/09/17 22:46 Calcium 7.9 mg/dL (8.4-10.2) L 05/12/17 05:08 Magnesium 2.40 mg/dL (1.7-2.3) H 05/12/17 05:08 Total Bilirubin 0.30 mg/dL (0.1-1.2) 05/10/17 05:00 AST 11 units/L (5-40) 05/10/17 05:00 ALT 6 units/L (7-56) L 05/10/17 05:00 Alkaline Phosphatase 111 units/L (35-129) 05/10/17 05:00 Total Creatine Kinase 25 units/L (55-170) L 05/09/17 13:43 C-Reactive Protein 53.30 mg/dL (0.00-1.30) H 05/09/17 13:00 Total Protein 7.7 g/dL (6.3-8.2) 05/10/17 05:00 Albumin 2.8 g/dL (3.9-5) L 05/10/17 05:00 Albumin/Globulin Ratio 0.6 % 05/10/17 05:00 Triglycerides 239 mg/dL (2-149) H 05/09/17 17:32 Cholesterol 124 mg/dL (50-199) 05/09/17 17:32 LDL Cholesterol Direct 72 mg/dL (50-130) 05/09/17 17:32 HDL Cholesterol 5 mg/dL (40-59) L 05/09/17 17:32 Cholesterol/HDL Ratio 24.80 % 05/09/17 17:32 Urine Color Yellow (Yellow) 05/09/17 14:44 Urine Turbidity Clear (Clear) 05/09/17 14:44 Urine pH 5.0 (5.0-7.0) 05/09/17 14:44 Ur Specific [place] 1.015 (1.003-1.030) 05/09/17 14:44 Urine Protein 30 mg/dl mg/dL (Negative) 05/09/17 14:44 Urine Glucose (UA) >=500 mg/dL (Negative) 05/09/17 14:44 Urine Ketones 80 mg/dL (Negative) 05/09/17 14:44 Urine Blood Mod (Negative) 05/09/17 14:44 Urine Nitrite Neg (Negative) 05/09/17 14:44 Urine Bilirubin Neg (Negative) 05/09/17 14:44 Urine Urobilinogen < 2.0 mg/dL (<2.0) 05/09/17 14:44 Ur Leukocyte Esterase Neg (Negative) 05/09/17 14:44 Urine WBC (Auto) < 1.0 /HPF (0.0-6.0) 05/09/17 14:44 Urine RBC (Auto) 1.0 /HPF (0.0-6.0) 05/09/17 14:44 U Epithel Cells (Auto) < 1.0 /HPF (0-13.0) 05/09/17 14:44 Urine Bacteria (Auto) 1+ /HPF (Negative) 05/09/17 14:44 Urine Mucus Few /HPF 05/09/17 14:44 Vancomycin Trough 2.4 ug/mL (5.0-20.0) L 05/12/17 05:08 Blood Type B POSITIVE 05/09/17 17:36 Antibody Screen TNR 05/09/17 17:36 KRISTOPHER Antibody Screen Negative 05/09/17 17:36
[2017-05-12] MEDS: DAKIN'S HALF STRENGTH TP SCH ×2 (17:19→23:58)
[2017-05-12] MEDS: VANCOMYCIN 1,250 MG in NACL 0.9% 250ML 250 ML IV SCH (17:24)
[2017-05-13] MEDS: NOVOLOG SUB-Q SCH ×5 (00:32→22:56)
[2017-05-13] MEDS: NACL 0.9% 1000 ML 1,000 ML IV SCH ×2 (04:00→16:02)
[2017-05-13] MEDS: VANCOMYCIN 1,250 MG in NACL 0.9% 250ML 250 ML IV SCH ×3 (04:18→17:30)
[2017-05-13 05:43] LABS: Hematocrit 32.6 % (35.5-45.6); Hemoglobin 10.8 gm/dl (11.8-15.2); Mean Corpuscular HGB Conc 33 % (32-34); Mean Corpuscular Hemoglobin 26 pg (28-32); Mean Corpuscular Volume 80 fl (84-94); Platelet Count 649 K/mm3 (140-440); Red Cell Distribution Width 13.7 % (13.2-15.2); White Blood Count 14.1 K/mm3 (4.5-11.0)
[2017-05-13 06:04] LABS: Anion Gap 19 mmol/L; BUN/Creatinine Ratio 4.28; Blood Urea Nitrogen 3 mg/dL (9-20); Calcium 8.2 mg/dL (8.4-10.2); Carbon Dioxide 25 mmol/L (22-30); Chloride 100.6 mmol/L (98-107); Glucose 160 mg/dL (75-100); Potassium 3.3 mmol/L (3.6-5.0); Sodium 141 mmol/L (137-145)
[2017-05-13] MEDS: CLEOCIN 900 MG/50 mL 900 MG/50 ML BAG IV SCH ×3 (06:10→22:56)
[2017-05-13] MEDS ORDERED: K-DUR PO NR (08:00)
[2017-05-13] MEDS: MORPHINE IV PRN ×4 (10:00→22:59)
[2017-05-13] MEDS: DAKIN'S HALF STRENGTH TP SCH ×2 (10:01→23:00)
[2017-05-13] MEDS: PEPCID PO SCH ×2 (10:02→22:57)
--- NOTE | 2017-05-13 10:02 | Progress Note ---
Assessment and Plan Status post debridement irrigation left ankle Plan Continue dressing changes and IV antibiotics patient will ultimately require skin grafting and hyperbaric oxygen therapy Subjective Date of service: 05/13/17 Interval history: Patient without complaints, staying comfortably in bed seen by our wound care staff patient started on daily dressing changes with Dakin solution Objective Vital signs: Vital Signs - 12hr 05/12/17 05/12/17 05/12/17 22:00 23:20 23:59 Temperature 100.5 F H Pulse Rate 97 H Pulse Rate [ 92 H Left From Monitor] Respiratory 18 20 18 Rate Respiratory 18 Rate [Left Ankle] Blood Pressure 118/66 O2 Sat by Pulse 99 98 Oximetry 05/13/17 05/13/17 05/13/17 00:32 04:00 08:00 Temperature 98.6 F 98.7 F Pulse Rate 95 H 95 H Pulse Rate [ Left From Monitor] Respiratory 18 18 18 Rate Respiratory Rate [Left Ankle] Blood Pressure 108/67 127/77 O2 Sat by Pulse 98 98 Oximetry - Labs CBC & BMP: 05/13/17 05:24 05/13/17 05:24 Labs: Abnormal lab results 05/12/17 05/12/17 05/12/17 Range/Units 12:05 16:57 23:24 WBC (4.5-11.0) K/mm3 Hgb (11.8-15.2) gm/dl Hct (35.5-45.6) % MCV (84-94) fl MCH (28-32) pg Plt Count (140-440) K/mm3 Potassium (3.6-5.0) mmol/L BUN (9-20) mg/dL Creatinine (0.8-1.5) mg/dL Glucose (75-100) mg/dL POC Glucose 109 H 271 H 302 H (70-105) Calcium (8.4-10.2) mg/dL 05/13/17 05/13/17 Range/Units 05:24 05:24 WBC 14.1 H (4.5-11.0) K/mm3 Hgb 10.8 L (11.8-15.2) gm/dl Hct 32.6 L (35.5-45.6) % MCV 80 L (84-94) fl MCH 26 L (28-32) pg Plt Count 649 H (140-440) K/mm3 Potassium 3.3 L (3.6-5.0) mmol/L BUN 3 L (9-20) mg/dL Creatinine 0.7 L (0.8-1.5) mg/dL Glucose 160 H (75-100) mg/dL POC Glucose (70-105) Calcium 8.2 L (8.4-10.2) mg/dL
--- NOTE | 2017-05-13 11:16 | Progress Note ---
Assessment and Plan Assessment and plan: Patient is 36 yo man with a history of diabetes mellitus type 2, hypertension, dyslipidemia and asthma who presents to [facility] emergency department with left ankle infection -Sepsis with necrotizing cellulitis of the left ankle, poa: Going for surgery today, continue IV antibiotics, consulted ID -Suspected peripheral vascular disease related to diabetes mellitus with poor glycemic control/healing leading to necrotizing skin infection and above: Maintain systemic control -Type 2 diabetes mellitus with complications/hyperglycemia: As slightly scale insulin, ADA diet -Hypertension: Antihypertensive -DVT prophylaxis: Subcutaneous Lovenox was ordered 05/10/17 d/w Infectious Disease, Dr. Shahid. Concern is necrotizing fascitis. I have also reached out to Ortho Surgeon, Dr. Garcia, who did bedside I-n-D, to re-evaluate. Patient may need additional/extensive debridement. So, I made patient NPO after midnight and reduced his long acting insulin dose (levemir tonight) by half. I will add hall monitor also 05/11/17 seen and examined and discussed with Dr. Garcia at bedside. Patient went back to surgery 05/12/17: wbc decreasing, afebrile since debribement, potassium replaced, wound care consulted, continue abx 05/13/17: Dr. Garcia recommends hyberbaric oxygen and eventual skin grafing , I called wound care and d/w wound care nurse Jyoti==> once he is out of the hospital, he can go to wound care clinic (still running a fever) for Hyperbaric O2, hopefully he can be setup for hyperbaric O2 soon. Insurance approval needed per Jyoti CHAIREZ. Overnight he had a fever. Continue abx. History Interval history: Patient seen and examined. Follow up on current diagnosis/left ankle infection. Overnight uneventful. No cp, sob, n/v or severe headaches. Imaging, old records , testing, labs, nursing notes reviewed. Hospitalist Physical - Physical exam Narrative exam: GEN: WDWN, NAD, AWAKE, ALERT, ORIENTATED x 3 HEENT: NCAT, PERRL, EOMI, OP CLEAR NECK: SUPPLE, NO THYROMEGALY, NO JVD, NO LAD CVS: regular tachycardia, NORMAL S1S2 LUNGS/CHEST: CTA B, NORMAL CHEST EXPANSION B, GOOD AIR ENTRY B ABD: SOFT, NTND, GBS, NO REBOUND OR GUARDING EXT/SKIN: Left medial malleous extensive ulceration, with 2 craters that are packed and necrotic edges, foul-smelling, tracking erythema, redness and warmth , pedal pulses are present. Left big toe also has a stage III ulcer MSK: FROM X 4 EXTREMITIES NEURO: CN 2-12 GROSSLY INTACT, NO FOCAL DEFICITS PSY: CALM - Constitutional Vitals: Temp Pulse Resp BP Pulse Ox 98.1 F 103 H 18 119/68 96 05/13/17 11:05 05/13/17 11:05 05/13/17 11:05 05/13/17 11:05 05/13/17 11:05 General appearance: Present: no acute distress Results - Labs CBC & Chem 7: 05/13/17 05:24 05/13/17 05:24 Labs: Laboratory Last Values WBC 14.1 K/mm3 (4.5-11.0) H 05/13/17 05:24 RBC 4.10 M/mm3 (3.65-5.03) 05/13/17 05:24 Hgb 10.8 gm/dl (11.8-15.2) L 05/13/17 05:24 Hct 32.6 % (35.5-45.6) L 05/13/17 05:24 MCV 80 fl (84-94) L 05/13/17 05:24 MCH 26 pg (28-32) L 05/13/17 05:24 MCHC 33 % (32-34) 05/13/17 05:24 RDW 13.7 % (13.2-15.2) 05/13/17 05:24 Plt Count 649 K/mm3 (140-440) H 05/13/17 05:24 Add Manual Diff Complete 05/10/17 05:00 Total Counted 100 05/10/17 05:00 Seg Neuts % (Manual) 53.0 % (40.0-70.0) 05/10/17 05:00 Band Neutrophils % 23.0 % 05/10/17 05:00 Lymphocytes % (Manual) 16.0 % (13.4-35.0) 05/10/17 05:00 Reactive Lymphs % (Man) 0 % 05/10/17 05:00 Monocytes % (Manual) 4.0 % (0.0-7.3) 05/10/17 05:00 Eosinophils % (Manual) 0 % (0.0-4.3) 05/10/17 05:00 Basophils % (Manual) 2.0 % (0.0-1.8) H 05/10/17 05:00 Metamyelocytes % 2.0 % 05/10/17 05:00 Myelocytes % 0 % 05/10/17 05:00 Promyelocytes % 0 % 05/10/17 05:00 Blast Cells % 0 % 05/10/17 05:00 Nucleated RBC % Not Reportable 05/10/17 05:00 Seg Neutrophils # Man 12.8 K/mm3 (1.8-7.7) H 05/10/17 05:00 Band Neutrophils # 5.6 K/mm3 05/10/17 05:00 Lymphocytes # (Manual) 3.9 K/mm3 (1.2-5.4) 05/10/17 05:00 Abs React Lymphs (Man) 0.0 K/mm3 05/10/17 05:00 Monocytes # (Manual) 1.0 K/mm3 (0.0-0.8) H 05/10/17 05:00 Eosinophils # (Manual) 0.0 K/mm3 (0.0-0.4) 05/10/17 05:00 Basophils # (Manual) 0.5 K/mm3 (0.0-0.1) H 05/10/17 05:00 Metamyelocytes # 0.5 K/mm3 05/10/17 05:00 Myelocytes # 0.0 K/mm3 05/10/17 05:00 Promyelocytes # 0.0 K/mm3 05/10/17 05:00 Blast Cells # 0.0 K/mm3 05/10/17 05:00 WBC Morphology Not Reportable 05/10/17 05:00 Hypersegmented Neuts Not Reportable 05/10/17 05:00 Hyposegmented Neuts Not Reportable 05/10/17 05:00 Hypogranular Neuts Not Reportable 05/10/17 05:00 Smudge Cells Not Reportable 05/10/17 05:00 Toxic Granulation Not Reportable 05/10/17 05:00 Toxic Vacuolation Not Reportable 05/10/17 05:00 Dohle Bodies Not Reportable 05/10/17 05:00 Pelger-Huet Anomaly Not Reportable 05/10/17 05:00 Pranay Rods Not Reportable 05/10/17 05:00 Platelet Estimate Appears normal 05/10/17 05:00 Clumped Platelets Not Reportable 05/10/17 05:00 Plt Clumps, EDTA Not Reportable 05/10/17 05:00 Large Platelets Not Reportable 05/10/17 05:00 Giant Platelets Not Reportable 05/10/17 05:00 Platelet Satelliting Not Reportable 05/10/17 05:00 Plt Morphology Comment Not Reportable 05/10/17 05:00 RBC Morphology Not Reportable 05/10/17 05:00 Dimorphic RBCs Not Reportable 05/10/17 05:00 Polychromasia Not Reportable 05/10/17 05:00 Hypochromasia 1+ 05/10/17 05:00 Poikilocytosis Not Reportable 05/10/17 05:00 Anisocytosis 1+ 05/10/17 05:00 Microcytosis Not Reportable 05/10/17 05:00 Macrocytosis Not Reportable 05/10/17 05:00 Spherocytes Not Reportable 05/10/17 05:00 Pappenheimer Bodies Not Reportable 05/10/17 05:00 Sickle Cells Not Reportable 05/10/17 05:00 Target Cells Not Reportable 05/10/17 05:00 Tear Drop Cells Not Reportable 05/10/17 05:00 Ovalocytes Not Reportable 05/10/17 05:00 Helmet Cells Not Reportable 05/10/17 05:00 Lim-[place] Bodies Not Reportable 05/10/17 05:00 [place] Rings Not Reportable 05/10/17 05:00 [place] Cells Not Reportable 05/10/17 05:00 Bite Cells Not Reportable 05/10/17 05:00 Crenated Cell Not Reportable 05/10/17 05:00 Elliptocytes Not Reportable 05/10/17 05:00 Acanthocytes (Spur) Not Reportable 05/10/17 05:00 Rouleaux Not Reportable 05/10/17 05:00 Hemoglobin C Crystals Not Reportable 05/10/17 05:00 Schistocytes Not Reportable 05/10/17 05:00 Malaria parasites Not Reportable 05/10/17 05:00 ESR 6 mm/Hr (0-20) 05/09/17 13:00 Harley Bodies Not Reportable 05/10/17 05:00 Hem Pathologist Commnt No 05/10/17 05:00 PT 19.6 Sec. (12.2-14.9) H 05/09/17 17:32 INR 1.66 (0.87-1.13) H 05/09/17 17:32 VBG pH 7.345 (7.320-7.420) 05/09/17 13:43 Sodium 141 mmol/L (137-145) 05/13/17 05:24 Potassium 3.3 mmol/L (3.6-5.0) L 05/13/17 05:24 Chloride 100.6 mmol/L (98-107) 05/13/17 05:24 Carbon Dioxide 25 mmol/L (22-30) 05/13/17 05:24 Anion Gap 19 mmol/L 05/13/17 05:24 BUN 3 mg/dL (9-20) L 05/13/17 05:24 Creatinine 0.7 mg/dL (0.8-1.5) L 05/13/17 05:24 Estimated GFR > 60 ml/min 05/13/17 05:24 BUN/Creatinine Ratio 4.28 % 05/13/17 05:24 Glucose 160 mg/dL (75-100) H 05/13/17 05:24 POC Glucose 302 (70-105) H 05/12/17 23:24 Hemoglobin A1c 11.3 % (4-6) H 05/09/17 17:32 Ketones Quantitative Moderate (Negative) 05/09/17 13:43 Lactic Acid 0.90 mmol/L (0.7-2.0) 05/13/17 05:24 Calcium 8.2 mg/dL (8.4-10.2) L 05/13/17 05:24 Magnesium 2.40 mg/dL (1.7-2.3) H 05/12/17 05:08 Total Bilirubin 0.30 mg/dL (0.1-1.2) 05/10/17 05:00 AST 11 units/L (5-40) 05/10/17 05:00 ALT 6 units/L (7-56) L 05/10/17 05:00 Alkaline Phosphatase 111 units/L (35-129) 05/10/17 05:00 Total Creatine Kinase 25 units/L (55-170) L 05/09/17 13:43 C-Reactive Protein 53.30 mg/dL (0.00-1.30) H 05/09/17 13:00 Total Protein 7.7 g/dL (6.3-8.2) 05/10/17 05:00 Albumin 2.8 g/dL (3.9-5) L 05/10/17 05:00 Albumin/Globulin Ratio 0.6 % 05/10/17 05:00 Triglycerides 239 mg/dL (2-149) H 05/09/17 17:32 Cholesterol 124 mg/dL (50-199) 05/09/17 17:32 LDL Cholesterol Direct 72 mg/dL (50-130) 05/09/17 17:32 HDL Cholesterol 5 mg/dL (40-59) L 05/09/17 17:32 Cholesterol/HDL Ratio 24.80 % 05/09/17 17:32 Urine Color Yellow (Yellow) 05/09/17 14:44 Urine Turbidity Clear (Clear) 05/09/17 14:44 Urine pH 5.0 (5.0-7.0) 05/09/17 14:44 Ur Specific [place] 1.015 (1.003-1.030) 05/09/17 14:44 Urine Protein 30 mg/dl mg/dL (Negative) 05/09/17 14:44 Urine Glucose (UA) >=500 mg/dL (Negative) 05/09/17 14:44 Urine Ketones 80 mg/dL (Negative) 05/09/17 14:44 Urine Blood Mod (Negative) 05/09/17 14:44 Urine Nitrite Neg (Negative) 05/09/17 14:44 Urine Bilirubin Neg (Negative) 05/09/17 14:44 Urine Urobilinogen < 2.0 mg/dL (<2.0) 05/09/17 14:44 Ur Leukocyte Esterase Neg (Negative) 05/09/17 14:44 Urine WBC (Auto) < 1.0 /HPF (0.0-6.0) 05/09/17 14:44 Urine RBC (Auto) 1.0 /HPF (0.0-6.0) 05/09/17 14:44 U Epithel Cells (Auto) < 1.0 /HPF (0-13.0) 05/09/17 14:44 Urine Bacteria (Auto) 1+ /HPF (Negative) 05/09/17 14:44 Urine Mucus Few /HPF 05/09/17 14:44 Vancomycin Trough 2.4 ug/mL (5.0-20.0) L 05/12/17 05:08 Blood Type B POSITIVE 05/09/17 17:36 Antibody Screen TNR 05/09/17 17:36 KRISTOPHER Antibody Screen Negative 05/09/17 17:36
--- NOTE | 2017-05-13 14:10 | Progress Note ---
Assessment and Plan - Patient Problems (1) Necrotizing fasciitis Current Visit: Yes Status: Acute Plan to address problem: 1. Continue current antimicrobials. 2. Duration of antibiotics TBD based on further surgical needs. 3. If no further surgeries are planned during this admission, then a possible oral option is Linezolid and/or Clindamycin. Patient has drug allergies to several other antibiotic classes. 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 Subjective Date of service: 05/13/17 Principal diagnosis: Necrotizing Fasciitis Left Ankle Interval history: Local pain, otherwise no other complaints. Objective - Constitutional Vitals: Vital Signs Temp Pulse Resp BP Pulse Ox 98.1 F 103 H 18 119/68 96 05/13/17 11:05 05/13/17 11:05 05/13/17 11:05 05/13/17 11:05 05/13/17 11:05 Temperature -Last 24 Hours Temperature 98.1 F Temperature 98.7 F Temperature 98.6 F Temperature 100.5 F Temperature 99.0 F General appearance: Present: no acute distress - EENT Eyes: no conjunctival injection - Neck Neck: supple - Respiratory Respiratory effort: normal Respiratory: bilateral: CTA - Cardiovascular Rhythm: regular Heart Sounds: Present: S1 & S2 Extremity abnormal: edema (edema with serous drainage, no odor from extensive open wound of left ankle) - Gastrointestinal General gastrointestinal: Present: soft, non-distended - Integumentary Integumentary: clear, no rash - Neurologic Neurologic: moves all extremities - Psychiatric Psychiatric: appropriate mood/affect - Labs CBC & Chem 7: 05/13/17 05:24 05/13/17 05:24 Labs: Abnormal lab results 05/12/17 05/12/17 05/13/17 Range/Units 16:57 23:24 05:24 WBC 14.1 H (4.5-11.0) K/mm3 Hgb 10.8 L (11.8-15.2) gm/dl Hct 32.6 L (35.5-45.6) % MCV 80 L (84-94) fl MCH 26 L (28-32) pg Plt Count 649 H (140-440) K/mm3 Potassium (3.6-5.0) mmol/L BUN (9-20) mg/dL Creatinine (0.8-1.5) mg/dL Glucose (75-100) mg/dL POC Glucose 271 H 302 H (70-105) Calcium (8.4-10.2) mg/dL 05/13/17 05/13/17 Range/Units 05:24 11:02 WBC (4.5-11.0) K/mm3 Hgb (11.8-15.2) gm/dl Hct (35.5-45.6) % MCV (84-94) fl MCH (28-32) pg Plt Count (140-440) K/mm3 Potassium 3.3 L (3.6-5.0) mmol/L BUN 3 L (9-20) mg/dL Creatinine 0.7 L (0.8-1.5) mg/dL Glucose 160 H (75-100) mg/dL POC Glucose 176 H (70-105) Calcium 8.2 L (8.4-10.2) mg/dL Microbiology 05/09/17 13:21 Peripheral/Venous Blood Culture - Preliminary NO GROWTH AFTER 72 HOURS 05/09/17 13:00 Peripheral/Venous Blood Culture - Preliminary NO GROWTH AFTER 72 HOURS 05/09/17 Unknown Ankle - Left Wound Culture - Final Beta Hemolytic Strep Group B
[2017-05-13] MEDS: LEVEMIR SUB-Q SCH ×2 (22:57)
[2017-05-14] MEDS: VANCOMYCIN 1,250 MG in NACL 0.9% 250ML 250 ML IV SCH ×3 (02:22→17:37)
[2017-05-14 05:42] LABS: Hematocrit 33.2 % (35.5-45.6); Hemoglobin 11.1 gm/dl (11.8-15.2); Mean Corpuscular HGB Conc 34 % (32-34); Mean Corpuscular Hemoglobin 27 pg (28-32); Mean Corpuscular Volume 80 fl (84-94); Platelet Count 835 K/mm3 (140-440); Red Blood Count 4.17 M/mm3 (3.65-5.03); Red Cell Distribution Width 13.9 % (13.2-15.2); White Blood Count 12.8 K/mm3 (4.5-11.0)
[2017-05-14 06:01] LABS: Anion Gap 17 mmol/L; Blood Urea Nitrogen 3 mg/dL (9-20); Calcium 8.4 mg/dL (8.4-10.2); Carbon Dioxide 28 mmol/L (22-30); Chloride 96.6 mmol/L (98-107); Glucose 204 mg/dL (75-100); Potassium 3.4 mmol/L (3.6-5.0); Sodium 138 mmol/L (137-145)
[2017-05-14] MEDS: CLEOCIN 900 MG/50 mL 900 MG/50 ML BAG IV SCH ×3 (06:11→21:25)
[2017-05-14] MEDS: NORCO 5/325 PO PRN (07:01)
[2017-05-14] MEDS: NOVOLOG SUB-Q SCH ×4 (09:20→21:26)
[2017-05-14] MEDS: PEPCID PO SCH ×2 (09:20→21:25)
[2017-05-14] MEDS: DAKIN'S HALF STRENGTH TP SCH ×2 (09:21→23:23)
--- NOTE | 2017-05-14 11:40 | Progress Note ---
Assessment and Plan Assessment and plan: Patient is 36 yo man with a history of diabetes mellitus type 2, hypertension, dyslipidemia and asthma who presents to [facility] emergency department with left ankle infection -Sepsis with necrotizing fascitis of the left leg/ankle with cellulitis, poa: Going for surgery today, continue IV antibiotics, consulted ID -Suspected peripheral vascular disease related to diabetes mellitus with poor glycemic control/healing leading to necrotizing skin infection and above: Maintain systemic control -Type 2 diabetes mellitus with complications/hyperglycemia: As slightly scale insulin, ADA diet -Hypertension: Antihypertensive -DVT prophylaxis: Subcutaneous Lovenox was ordered 05/10/17 d/w Infectious Disease, Dr. Shahid. Concern is necrotizing fascitis. I have also reached out to Ortho Surgeon, Dr. Garcia, who did bedside I-n-D, to re-evaluate. Patient may need additional/extensive debridement. So, I made patient NPO after midnight and reduced his long acting insulin dose (levemir tonight) by half. I will add court recording monitor also 05/11/17 seen and examined and discussed with Dr. Garcia at bedside. Patient went back to surgery 05/12/17: wbc decreasing, afebrile since debribement, potassium replaced, wound care consulted, continue abx 05/13/17: Dr. Garcia recommends hyberbaric oxygen and eventual skin grafing , I called wound care and d/w wound care nurse Jyoti==> once he is out of the hospital, he can go to wound care clinic (still running a fever) for Hyperbaric O2, hopefully he can be setup for hyperbaric O2 soon. Insurance approval needed per Jyoti CHAIREZ. Overnight he had a fever. Continue abx. 05/14/17: wounds looks much better, no necrosis within the wound, edges look clean. Continue abx thru this weekend per Ortho instruction, d/c probably Tuesday or Tuesday, when hyperbaric o2 setup. History Interval history: Patient seen and examined. Follow up on current diagnosis/left ankle infection. Overnight uneventful. No cp, sob, n/v or severe headaches. Imaging, old records , testing, labs, nursing notes reviewed. Hospitalist Physical - Physical exam Narrative exam: GEN: WDWN, NAD, AWAKE, ALERT, ORIENTATED x 3 HEENT: NCAT, PERRL, EOMI, OP CLEAR NECK: SUPPLE, NO THYROMEGALY, NO JVD, NO LAD CVS: regular tachycardia, NORMAL S1S2 LUNGS/CHEST: CTA B, NORMAL CHEST EXPANSION B, GOOD AIR ENTRY B ABD: SOFT, NTND, GBS, NO REBOUND OR GUARDING EXT/SKIN: Left medial malleous extensive ulceration, with 2 craters that are packed and necrotic edges, foul-smelling, tracking erythema, redness and warmth , pedal pulses are present. Left big toe also has a stage III ulcer MSK: FROM X 4 EXTREMITIES NEURO: CN 2-12 GROSSLY INTACT, NO FOCAL DEFICITS PSY: CALM - Constitutional Vitals: Temp Pulse Resp BP Pulse Ox 98.7 F 94 H 18 106/63 97 05/14/17 07:50 05/14/17 07:50 05/14/17 07:50 05/14/17 07:50 05/14/17 07:50 General appearance: Present: no acute distress Results - Labs CBC & Chem 7: 05/14/17 04:57 05/14/17 04:57 Labs: Laboratory Last Values WBC 12.8 K/mm3 (4.5-11.0) H 05/14/17 04:57 RBC 4.17 M/mm3 (3.65-5.03) 05/14/17 04:57 Hgb 11.1 gm/dl (11.8-15.2) L 05/14/17 04:57 Hct 33.2 % (35.5-45.6) L 05/14/17 04:57 MCV 80 fl (84-94) L 05/14/17 04:57 MCH 27 pg (28-32) L 05/14/17 04:57 MCHC 34 % (32-34) 05/14/17 04:57 RDW 13.9 % (13.2-15.2) 05/14/17 04:57 Plt Count 835 K/mm3 (140-440) H 05/14/17 04:57 Add Manual Diff Complete 05/10/17 05:00 Total Counted 100 05/10/17 05:00 Seg Neuts % (Manual) 53.0 % (40.0-70.0) 05/10/17 05:00 Band Neutrophils % 23.0 % 05/10/17 05:00 Lymphocytes % (Manual) 16.0 % (13.4-35.0) 05/10/17 05:00 Reactive Lymphs % (Man) 0 % 05/10/17 05:00 Monocytes % (Manual) 4.0 % (0.0-7.3) 05/10/17 05:00 Eosinophils % (Manual) 0 % (0.0-4.3) 05/10/17 05:00 Basophils % (Manual) 2.0 % (0.0-1.8) H 05/10/17 05:00 Metamyelocytes % 2.0 % 05/10/17 05:00 Myelocytes % 0 % 05/10/17 05:00 Promyelocytes % 0 % 05/10/17 05:00 Blast Cells % 0 % 05/10/17 05:00 Nucleated RBC % Not Reportable 05/10/17 05:00 Seg Neutrophils # Man 12.8 K/mm3 (1.8-7.7) H 05/10/17 05:00 Band Neutrophils # 5.6 K/mm3 05/10/17 05:00 Lymphocytes # (Manual) 3.9 K/mm3 (1.2-5.4) 05/10/17 05:00 Abs React Lymphs (Man) 0.0 K/mm3 05/10/17 05:00 Monocytes # (Manual) 1.0 K/mm3 (0.0-0.8) H 05/10/17 05:00 Eosinophils # (Manual) 0.0 K/mm3 (0.0-0.4) 05/10/17 05:00 Basophils # (Manual) 0.5 K/mm3 (0.0-0.1) H 05/10/17 05:00 Metamyelocytes # 0.5 K/mm3 05/10/17 05:00 Myelocytes # 0.0 K/mm3 05/10/17 05:00 Promyelocytes # 0.0 K/mm3 05/10/17 05:00 Blast Cells # 0.0 K/mm3 05/10/17 05:00 WBC Morphology Not Reportable 05/10/17 05:00 Hypersegmented Neuts Not Reportable 05/10/17 05:00 Hyposegmented Neuts Not Reportable 05/10/17 05:00 Hypogranular Neuts Not Reportable 05/10/17 05:00 Smudge Cells Not Reportable 05/10/17 05:00 Toxic Granulation Not Reportable 05/10/17 05:00 Toxic Vacuolation Not Reportable 05/10/17 05:00 Dohle Bodies Not Reportable 05/10/17 05:00 Pelger-Huet Anomaly Not Reportable 05/10/17 05:00 Pranay Rods Not Reportable 05/10/17 05:00 Platelet Estimate Appears normal 05/10/17 05:00 Clumped Platelets Not Reportable 05/10/17 05:00 Plt Clumps, EDTA Not Reportable 05/10/17 05:00 Large Platelets Not Reportable 05/10/17 05:00 Giant Platelets Not Reportable 05/10/17 05:00 Platelet Satelliting Not Reportable 05/10/17 05:00 Plt Morphology Comment Not Reportable 05/10/17 05:00 RBC Morphology Not Reportable 05/10/17 05:00 Dimorphic RBCs Not Reportable 05/10/17 05:00 Polychromasia Not Reportable 05/10/17 05:00 Hypochromasia 1+ 05/10/17 05:00 Poikilocytosis Not Reportable 05/10/17 05:00 Anisocytosis 1+ 05/10/17 05:00 Microcytosis Not Reportable 05/10/17 05:00 Macrocytosis Not Reportable 05/10/17 05:00 Spherocytes Not Reportable 05/10/17 05:00 Pappenheimer Bodies Not Reportable 05/10/17 05:00 Sickle Cells Not Reportable 05/10/17 05:00 Target Cells Not Reportable 05/10/17 05:00 Tear Drop Cells Not Reportable 05/10/17 05:00 Ovalocytes Not Reportable 05/10/17 05:00 Helmet Cells Not Reportable 05/10/17 05:00 Lim-[place] Bodies Not Reportable 05/10/17 05:00 [place] Rings Not Reportable 05/10/17 05:00 [place] Cells Not Reportable 05/10/17 05:00 Bite Cells Not Reportable 05/10/17 05:00 Crenated Cell Not Reportable 05/10/17 05:00 Elliptocytes Not Reportable 05/10/17 05:00 Acanthocytes (Spur) Not Reportable 05/10/17 05:00 Rouleaux Not Reportable 05/10/17 05:00 Hemoglobin C Crystals Not Reportable 05/10/17 05:00 Schistocytes Not Reportable 05/10/17 05:00 Malaria parasites Not Reportable 05/10/17 05:00 ESR 6 mm/Hr (0-20) 05/09/17 13:00 [place] Bodies Not Reportable 05/10/17 05:00 Hem Pathologist Commnt No 05/10/17 05:00 PT 19.6 Sec. (12.2-14.9) H 05/09/17 17:32 INR 1.66 (0.87-1.13) H 05/09/17 17:32 VBG pH 7.345 (7.320-7.420) 05/09/17 13:43 Sodium 138 mmol/L (137-145) 05/14/17 04:57 Potassium 3.4 mmol/L (3.6-5.0) L 05/14/17 04:57 Chloride 96.6 mmol/L (98-107) L 05/14/17 04:57 Carbon Dioxide 28 mmol/L (22-30) 05/14/17 04:57 Anion Gap 17 mmol/L 05/14/17 04:57 BUN 3 mg/dL (9-20) L 05/14/17 04:57 Creatinine 0.6 mg/dL (0.8-1.5) L 05/14/17 04:57 Estimated GFR > 60 ml/min 05/14/17 04:57 BUN/Creatinine Ratio 5.00 % 05/14/17 04:57 Glucose 204 mg/dL (75-100) H 05/14/17 04:57 POC Glucose 239 (70-105) H 05/14/17 06:34 Hemoglobin A1c 11.3 % (4-6) H 05/09/17 17:32 Ketones Quantitative Moderate (Negative) 05/09/17 13:43 Lactic Acid 0.90 mmol/L (0.7-2.0) 05/13/17 05:24 Calcium 8.4 mg/dL (8.4-10.2) 05/14/17 04:57 Magnesium 2.40 mg/dL (1.7-2.3) H 05/12/17 05:08 Total Bilirubin 0.30 mg/dL (0.1-1.2) 05/10/17 05:00 AST 11 units/L (5-40) 05/10/17 05:00 ALT 6 units/L (7-56) L 05/10/17 05:00 Alkaline Phosphatase 111 units/L (35-129) 05/10/17 05:00 Total Creatine Kinase 25 units/L (55-170) L 05/09/17 13:43 C-Reactive Protein 53.30 mg/dL (0.00-1.30) H 05/09/17 13:00 Total Protein 7.7 g/dL (6.3-8.2) 05/10/17 05:00 Albumin 2.8 g/dL (3.9-5) L 05/10/17 05:00 Albumin/Globulin Ratio 0.6 % 05/10/17 05:00 Triglycerides 239 mg/dL (2-149) H 05/09/17 17:32 Cholesterol 124 mg/dL (50-199) 05/09/17 17:32 LDL Cholesterol Direct 72 mg/dL (50-130) 05/09/17 17:32 HDL Cholesterol 5 mg/dL (40-59) L 05/09/17 17:32 Cholesterol/HDL Ratio 24.80 % 05/09/17 17:32 Urine Color Yellow (Yellow) 05/09/17 14:44 Urine Turbidity Clear (Clear) 05/09/17 14:44 Urine pH 5.0 (5.0-7.0) 05/09/17 14:44 Ur Specific [place] 1.015 (1.003-1.030) 05/09/17 14:44 Urine Protein 30 mg/dl mg/dL (Negative) 05/09/17 14:44 Urine Glucose (UA) >=500 mg/dL (Negative) 05/09/17 14:44 Urine Ketones 80 mg/dL (Negative) 05/09/17 14:44 Urine Blood Mod (Negative) 05/09/17 14:44 Urine Nitrite Neg (Negative) 05/09/17 14:44 Urine Bilirubin Neg (Negative) 05/09/17 14:44 Urine Urobilinogen < 2.0 mg/dL (<2.0) 05/09/17 14:44 Ur Leukocyte Esterase Neg (Negative) 05/09/17 14:44 Urine WBC (Auto) < 1.0 /HPF (0.0-6.0) 05/09/17 14:44 Urine RBC (Auto) 1.0 /HPF (0.0-6.0) 05/09/17 14:44 U Epithel Cells (Auto) < 1.0 /HPF (0-13.0) 05/09/17 14:44 Urine Bacteria (Auto) 1+ /HPF (Negative) 05/09/17 14:44 Urine Mucus Few /HPF 05/09/17 14:44 Vancomycin Trough 2.4 ug/mL (5.0-20.0) L 05/12/17 05:08 Blood Type B POSITIVE 05/09/17 17:36 Antibody Screen TNR 05/09/17 17:36 KRISTOPHER Antibody Screen Negative 05/09/17 17:36
[2017-05-14] MEDS: MORPHINE IV PRN ×3 (12:31→21:26)
--- NOTE | 2017-05-14 13:47 | Consultation ---
History of Present Illness - Reason for Consult Consult date: 05/14/17 left ankle ulceration, DM - History of Present Illness Patient with a history of left ankle ulceration and diabetes who states that his ankle ulceration began after stepping in a hole in the yard. Is currently under the care of both infectious disease and orthopedic surgery for debridement. Concern for possible peripheral vascular disease. On examination , the patient has a bandage on his left foot and ankle. His foot is warm. His right foot has strongly palpable dorsalis pedis and posterior tibial artery pulses. Past History Past Medical History: diabetes, hyperlipidemia, other (asthma) Past Surgical History: tonsillectomy Social history: smoking (1ppd), full code. denies: alcohol abuse, prescription drug abuse, IV drug use Family history: no significant family history Medications and Allergies Allergies Allergy/AdvReac Type Severity Reaction Status Date / Time cefixime [From Suprax] Allergy Hives Verified 05/09/17 14:22 ciprofloxacin [From Cipro] Allergy Unknown Verified 05/09/17 14:22 ciprofloxacin HCl Allergy Unknown Verified 05/09/17 14:22 [From Cipro] Sulfa (Sulfonamide Allergy Unknown Verified 05/09/17 14:22 Antibiotics) sulfamethoxazole Allergy Unknown Verified 05/09/17 14:22 [From Bactrim] trimethoprim [From Bactrim] Allergy Unknown Verified 05/09/17 14:22 Home Medications Medication Instructions Recorded Confirmed Last Taken Type No Known Home Medications [No 05/09/17 05/09/17 Unknown History Reported Home Medications] Active Meds: Active Medications Acetaminophen (Tylenol) 650 mg PO Q4H PRN PRN Reason: Pain MILD(1-3)/Fever >100.5/SIMON Last Admin: 05/13/17 00:32 Dose: 650 mg Acetaminophen/Hydrocodone Bitart ([place] 5/325) 2 each PO Q6H PRN PRN Reason: Pain, Moderate (4-6) Last Admin: 05/14/17 07:01 Dose: 2 each Bisacodyl (Dulcolax) 10 mg WI QDAY PRN PRN Reason: Constipation unrelieved by MOM Dextrose (D50w (25gm)) 50 ml IV PRN PRN PRN Reason: Hypoglycemia Famotidine (Pepcid) 20 mg PO BID CYNTHIA Last Admin: 05/14/17 09:20 Dose: 20 mg Sodium Chloride (Nacl 0.9% 1000 Ml) 1,000 mls @ 125 mls/hr IV DIRECT COUNT INCLUDES THE [facility] Last Admin: 05/13/17 16:02 Dose: 125 mls/hr Clindamycin HCl (Cleocin 900 Mg/50 Ml) 900 mg in 50 mls @ 100 mls/hr IV Q8HR COUNT INCLUDES THE [facility] PRN Reason: Protocol Last Admin: 05/14/17 13:09 Dose: 100 mls/hr Vancomycin HCl 1,250 mg/ (Sodium Chloride) 275 mls @ 166.667 mls/hr IV Q8H COUNT INCLUDES THE [facility] Last Admin: 05/14/17 09:28 Dose: 166.667 mls/hr Insulin Aspart (Novolog) 0 units SUB-Q ACHS COUNT INCLUDES THE [facility] PRN Reason: Protocol Last Admin: 05/14/17 12:30 Dose: 8 units Insulin Detemir (Levemir) 20 units SUB-Q QHS COUNT INCLUDES THE [facility] Last Admin: 05/13/17 22:57 Dose: 20 units Magnesium Hydroxide (Milk Of Magnesia) 30 ml PO Q4H PRN PRN Reason: Constipation Morphine Sulfate (Morphine) 2 mg IV Q4H PRN PRN Reason: Pain, Moderate (4-6) Last Admin: 05/14/17 12:31 Dose: 2 mg Ondansetron HCl (Zofran) 4 mg IV Q8H PRN PRN Reason: N/V unrelieved by [place] Last Admin: 05/10/17 11:14 Dose: 4 mg Sodium Hypochlorite (Dakin's Half Strength) 1 applic TP BID COUNT INCLUDES THE [facility] Last Admin: 05/14/17 09:21 Dose: 1 applicatio Vancomycin HCl (Vancomycin Pharmacy To Dose) 1 each IV PKCONSULT COUNT INCLUDES THE [facility] PRN Reason: Protocol Review of Systems All systems: negative Exam - Constitutional Vitals: Temp Pulse Resp BP Pulse Ox 98.7 F 94 H 18 106/63 97 05/14/17 07:50 05/14/17 07:50 05/14/17 07:50 05/14/17 07:50 05/14/17 07:50 General appearance: Present: no acute distress - EENT Eyes: Present: PERRL, EOM intact ENT: hearing intact - Neck Neck: Present: supple, normal ROM - Respiratory Respiratory effort: normal - Extremities Extremities: abnormal (per HPI) - Abdominal General gastrointestinal: Present: deferred Male genitourinary: Present: deferred - Rectal Rectal Exam: deferred - Psychiatric Psychiatric: appropriate mood/affect, cooperative Results - Labs CBC & Chem 7: 05/14/17 04:57 05/14/17 04:57 Labs: Abnormal lab results 05/13/17 05/14/17 05/14/17 Range/Units 21:57 04:57 04:57 WBC 12.8 H (4.5-11.0) K/mm3 Hgb 11.1 L (11.8-15.2) gm/dl Hct 33.2 L (35.5-45.6) % MCV 80 L (84-94) fl MCH 27 L (28-32) pg Plt Count 835 H (140-440) K/mm3 Potassium 3.4 L (3.6-5.0) mmol/L Chloride 96.6 L (98-107) mmol/L BUN 3 L (9-20) mg/dL Creatinine 0.6 L (0.8-1.5) mg/dL Glucose 204 H (75-100) mg/dL POC Glucose 212 H (70-105) 05/14/17 Range/Units 06:34 WBC (4.5-11.0) K/mm3 Hgb (11.8-15.2) gm/dl Hct (35.5-45.6) % MCV (84-94) fl MCH (28-32) pg Plt Count (140-440) K/mm3 Potassium (3.6-5.0) mmol/L Chloride (98-107) mmol/L BUN (9-20) mg/dL Creatinine (0.8-1.5) mg/dL Glucose (75-100) mg/dL POC Glucose 239 H (70-105) Assessment and Plan Patient with ankle ulcer on his left foot. We will obtain ultrasound and ABIs of bilateral lower extremities however, given his strongly palpable pulses on his right foot would suspect no arterial disease.
--- NOTE | 2017-05-14 17:11 | Progress Note ---
Assessment and Plan - Patient Problems (1) Necrotizing fasciitis Current Visit: Yes Status: Acute Plan to address problem: Patient remains stable s/p extensive debridement. Continue current management for now, Rocephin and Clindamycin. Await further surgical plans. (2) Diabetes mellitus Current Visit: Yes Status: Acute Qualifiers: Diabetes mellitus type: type 2 Diabetes mellitus complication status: with hyperglycemia Diabetes mellitus complication detail: D Diabetic retinopathy severity: D Proliferative retinopathy type: P Diabetes mellitus macular edema: D Diabetes mellitus penitentiary insulin use: unspecified penitentiary insulin use status Laterality: L Chronic kidney disease stage: C Qualified Code(s): E11.65 - Type 2 diabetes mellitus with hyperglycemia Plan to address problem: Moderately controlled. Subjective Date of service: 05/14/17 Principal diagnosis: Necrotizing Fasciitis Left Ankle Interval history: Patient remains stable. No new complaints. Denies diarrhea. Currently completing vascular evaluation for possible peripheral vascular disease. Objective - Constitutional Vitals: Vital Signs Temp Pulse Resp BP Pulse Ox 97.9 F 83 18 139/89 97 05/14/17 16:39 05/14/17 16:39 05/14/17 16:39 05/14/17 16:39 05/14/17 07:50 Temperature -Last 24 Hours Temperature 97.9 F Temperature 98.7 F Temperature 99.4 F General appearance: Present: no acute distress, well-nourished - Respiratory Respiratory effort: normal Respiratory: bilateral: CTA - Cardiovascular Rhythm: regular Heart Sounds: Present: S1 & S2 Extremity abnormal: edema (left foot edema, all tissues warm, no crepitus palpated; deep ulcerations at medial ankle s/p debridement without odor or purulence) - Gastrointestinal General gastrointestinal: Present: soft, non-distended - Integumentary Integumentary: clear, no rash - Psychiatric Psychiatric: appropriate mood/affect - Labs CBC & Chem 7: 05/14/17 04:57 05/14/17 04:57 Labs: Abnormal lab results 05/13/17 05/14/17 05/14/17 Range/Units 21:57 04:57 04:57 WBC 12.8 H (4.5-11.0) K/mm3 Hgb 11.1 L (11.8-15.2) gm/dl Hct 33.2 L (35.5-45.6) % MCV 80 L (84-94) fl MCH 27 L (28-32) pg Plt Count 835 H (140-440) K/mm3 Potassium 3.4 L (3.6-5.0) mmol/L Chloride 96.6 L (98-107) mmol/L BUN 3 L (9-20) mg/dL Creatinine 0.6 L (0.8-1.5) mg/dL Glucose 204 H (75-100) mg/dL POC Glucose 212 H (70-105) 05/14/17 05/14/17 Range/Units 06:34 12:03 WBC (4.5-11.0) K/mm3 Hgb (11.8-15.2) gm/dl Hct (35.5-45.6) % MCV (84-94) fl MCH (28-32) pg Plt Count (140-440) K/mm3 Potassium (3.6-5.0) mmol/L Chloride (98-107) mmol/L BUN (9-20) mg/dL Creatinine (0.8-1.5) mg/dL Glucose (75-100) mg/dL POC Glucose 239 H 362 H (70-105) Microbiology 05/09/17 13:21 Peripheral/Venous Blood Culture - Final NO GROWTH AFTER 5 DAYS 05/09/17 13:00 Peripheral/Venous Blood Culture - Final NO GROWTH AFTER 5 DAYS 05/09/17 Unknown Ankle - Left Wound Culture - Final Beta Hemolytic Strep Group B
[2017-05-14] MEDS: K-DUR PO ONE (20:45)
[2017-05-14] MEDS: LEVEMIR SUB-Q SCH (21:26)
[2017-05-15] MEDS: VANCOMYCIN 1,250 MG in NACL 0.9% 250ML 250 ML IV SCH ×3 (01:48→17:22)
[2017-05-15] MEDS: CLEOCIN 900 MG/50 mL 900 MG/50 ML BAG IV SCH ×3 (05:05→22:59)
[2017-05-15] MEDS: NOVOLOG SUB-Q SCH ×4 (08:23→23:00)
[2017-05-15] MEDS: MORPHINE IV PRN ×3 (08:23→19:31)
[2017-05-15] MEDS: NACL 0.9% 1000 ML 1,000 ML IV SCH (09:19)
[2017-05-15] MEDS: PEPCID PO SCH ×2 (09:20→23:00)
[2017-05-15] MEDS: DAKIN'S HALF STRENGTH TP SCH ×2 (09:23→23:05)
--- NOTE | 2017-05-15 09:40 | Progress Note ---
Assessment and Plan Patient with a history of left ankle ulceration and peripheral vascular disease with acute increased velocities in his tibial vessels and popliteal vessel on the left. Patient will be scheduled for an angiogram with possible intervention tomorrow. This was discussed with the patient. Subjective Date of service: 05/15/17 Principal diagnosis: Necrotizing Fasciitis Left Ankle Interval history: A patient with a history of left ankle infection status post debridement. Arterial ultrasound was performed which demonstrates abnormally increased velocities in his left lower extremity. Patient with no specific complaints at this time. Objective - Constitutional Vitals: Vital Signs - 12hr 05/14/17 05/15/17 23:00 08:00 Temperature 98.7 F 98.4 F Pulse Rate 99 H 82 Respiratory 14 20 Rate Blood Pressure 111/69 122/75 O2 Sat by Pulse 97 96 Oximetry General appearance: Present: no acute distress - EENT Eyes: PERRL ENT: hearing intact - Neck Neck: supple - Respiratory Respiratory effort: normal - Breasts Breasts: deferred Extremities: abnormal (left ankle ulceration) - Gastrointestinal General gastrointestinal: Present: deferred - Genitourinary Male genitourinary: deferred - Neurologic Neurologic: no focal deficits - Psychiatric Psychiatric: appropriate mood/affect, cooperative - Labs CBC & Chem 7: 05/14/17 04:57 05/14/17 04:57 Labs: Abnormal lab results 05/14/17 05/14/17 05/14/17 Range/Units 12:03 16:15 21:00 POC Glucose 362 H 157 H 329 H (70-105) - Imaging and cardiology Venous US: image reviewed
--- NOTE | 2017-05-15 10:01 | Progress Note ---
Assessment and Plan Assessment and plan: Patient is 36 yo man with a history of diabetes mellitus type 2, hypertension, dyslipidemia and asthma who presents to [facility] emergency department with left ankle infection -Sepsis with necrotizing fascitis of the left leg/ankle with cellulitis, poa: Going for surgery today, continue IV antibiotics, consulted ID -Suspected peripheral vascular disease related to diabetes mellitus with poor glycemic control/healing leading to necrotizing skin infection and above: Maintain systemic control -Type 2 diabetes mellitus with complications/hyperglycemia: As slightly scale insulin, ADA diet -Hypertension: Antihypertensive -DVT prophylaxis: Subcutaneous Lovenox was ordered 05/10/17 d/w Infectious Disease, Dr. Shahid. Concern is necrotizing fascitis. I have also reached out to Ortho Surgeon, Dr. Garcia, who did bedside I-n-D, to re-evaluate. Patient may need additional/extensive debridement. So, I made patient NPO after midnight and reduced his long acting insulin dose (levemir tonight) by half. I will add director of sales marketing also 05/11/17 seen and examined and discussed with Dr. Garcia at bedside. Patient went back to surgery 05/12/17: wbc decreasing, afebrile since debribement, potassium replaced, wound care consulted, continue abx 05/13/17: Dr. Garcia recommends hyberbaric oxygen and eventual skin grafing , I called wound care and d/w wound care nurse Jyoti==> once he is out of the hospital, he can go to wound care clinic (still running a fever) for Hyperbaric O2, hopefully he can be setup for hyperbaric O2 soon. Insurance approval needed per Jyoti CHAIREZ. Overnight he had a fever. Continue abx. 05/14/17: wounds looks much better, no necrosis within the wound, edges look clean. Continue abx thru this weekend per Ortho instruction, d/c probably Tuesday or Tuesday, when hyperbaric o2 setup. 05/15/17: Consulted vascular, Dr. Avila and his recommendation as follows: "Patient with a history of left ankle ulceration and peripheral vascular disease with acute increased velocities in his tibial vessels and popliteal vessel on the left. Patient will be scheduled for an angiogram with possible intervention tomorrow. This was discussed with the patient." History Interval history: Patient seen and examined. Follow up on current diagnosis/left ankle infection. Overnight uneventful. No cp, sob, n/v or severe headaches. Imaging, old records , testing, labs, nursing notes reviewed. Hospitalist Physical - Physical exam Narrative exam: GEN: WDWN, NAD, AWAKE, ALERT, ORIENTATED x 3 HEENT: NCAT, PERRL, EOMI, OP CLEAR NECK: SUPPLE, NO THYROMEGALY, NO JVD, NO LAD CVS: regular tachycardia, NORMAL S1S2 LUNGS/CHEST: CTA B, NORMAL CHEST EXPANSION B, GOOD AIR ENTRY B ABD: SOFT, NTND, GBS, NO REBOUND OR GUARDING EXT/SKIN: Left medial malleous extensive ulceration with extensive debribement, small upper edge 1mm black spot left, Left big toe also has a stage III ulcer MSK: FROM X 4 EXTREMITIES NEURO: CN 2-12 GROSSLY INTACT, NO FOCAL DEFICITS PSY: CALM - Constitutional Vitals: Temp Pulse Resp BP Pulse Ox 98.4 F 82 20 122/75 96 05/15/17 08:00 05/15/17 08:00 05/15/17 08:00 05/15/17 08:00 05/15/17 08:00 General appearance: Present: no acute distress Results - Labs CBC & Chem 7: 05/14/17 04:57 05/14/17 04:57 Labs: Laboratory Last Values WBC 12.8 K/mm3 (4.5-11.0) H 05/14/17 04:57 RBC 4.17 M/mm3 (3.65-5.03) 05/14/17 04:57 Hgb 11.1 gm/dl (11.8-15.2) L 05/14/17 04:57 Hct 33.2 % (35.5-45.6) L 05/14/17 04:57 MCV 80 fl (84-94) L 05/14/17 04:57 MCH 27 pg (28-32) L 05/14/17 04:57 MCHC 34 % (32-34) 05/14/17 04:57 RDW 13.9 % (13.2-15.2) 05/14/17 04:57 Plt Count 835 K/mm3 (140-440) H 05/14/17 04:57 Add Manual Diff Complete 05/10/17 05:00 Total Counted 100 05/10/17 05:00 Seg Neuts % (Manual) 53.0 % (40.0-70.0) 05/10/17 05:00 Band Neutrophils % 23.0 % 05/10/17 05:00 Lymphocytes % (Manual) 16.0 % (13.4-35.0) 05/10/17 05:00 Reactive Lymphs % (Man) 0 % 05/10/17 05:00 Monocytes % (Manual) 4.0 % (0.0-7.3) 05/10/17 05:00 Eosinophils % (Manual) 0 % (0.0-4.3) 05/10/17 05:00 Basophils % (Manual) 2.0 % (0.0-1.8) H 05/10/17 05:00 Metamyelocytes % 2.0 % 05/10/17 05:00 Myelocytes % 0 % 05/10/17 05:00 Promyelocytes % 0 % 05/10/17 05:00 Blast Cells % 0 % 05/10/17 05:00 Nucleated RBC % Not Reportable 05/10/17 05:00 Seg Neutrophils # Man 12.8 K/mm3 (1.8-7.7) H 05/10/17 05:00 Band Neutrophils # 5.6 K/mm3 05/10/17 05:00 Lymphocytes # (Manual) 3.9 K/mm3 (1.2-5.4) 05/10/17 05:00 Abs React Lymphs (Man) 0.0 K/mm3 05/10/17 05:00 Monocytes # (Manual) 1.0 K/mm3 (0.0-0.8) H 05/10/17 05:00 Eosinophils # (Manual) 0.0 K/mm3 (0.0-0.4) 05/10/17 05:00 Basophils # (Manual) 0.5 K/mm3 (0.0-0.1) H 05/10/17 05:00 Metamyelocytes # 0.5 K/mm3 05/10/17 05:00 Myelocytes # 0.0 K/mm3 05/10/17 05:00 Promyelocytes # 0.0 K/mm3 05/10/17 05:00 Blast Cells # 0.0 K/mm3 05/10/17 05:00 WBC Morphology Not Reportable 05/10/17 05:00 Hypersegmented Neuts Not Reportable 05/10/17 05:00 Hyposegmented Neuts Not Reportable 05/10/17 05:00 Hypogranular Neuts Not Reportable 05/10/17 05:00 Smudge Cells Not Reportable 05/10/17 05:00 Toxic Granulation Not Reportable 05/10/17 05:00 Toxic Vacuolation Not Reportable 05/10/17 05:00 Dohle Bodies Not Reportable 05/10/17 05:00 Pelger-Huet Anomaly Not Reportable 05/10/17 05:00 Pranay Rods Not Reportable 05/10/17 05:00 Platelet Estimate Appears normal 05/10/17 05:00 Clumped Platelets Not Reportable 05/10/17 05:00 Plt Clumps, EDTA Not Reportable 05/10/17 05:00 Large Platelets Not Reportable 05/10/17 05:00 Giant Platelets Not Reportable 05/10/17 05:00 Platelet Satelliting Not Reportable 05/10/17 05:00 Plt Morphology Comment Not Reportable 05/10/17 05:00 RBC Morphology Not Reportable 05/10/17 05:00 Dimorphic RBCs Not Reportable 05/10/17 05:00 Polychromasia Not Reportable 05/10/17 05:00 Hypochromasia 1+ 05/10/17 05:00 Poikilocytosis Not Reportable 05/10/17 05:00 Anisocytosis 1+ 05/10/17 05:00 Microcytosis Not Reportable 05/10/17 05:00 Macrocytosis Not Reportable 05/10/17 05:00 Spherocytes Not Reportable 05/10/17 05:00 Pappenheimer Bodies Not Reportable 05/10/17 05:00 Sickle Cells Not Reportable 05/10/17 05:00 Target Cells Not Reportable 05/10/17 05:00 Tear Drop Cells Not Reportable 05/10/17 05:00 Ovalocytes Not Reportable 05/10/17 05:00 Helmet Cells Not Reportable 05/10/17 05:00 Lim-Sligo Bodies Not Reportable 05/10/17 05:00 [place] Rings Not Reportable 05/10/17 05:00 Haile Cells Not Reportable 05/10/17 05:00 Bite Cells Not Reportable 05/10/17 05:00 Crenated Cell Not Reportable 05/10/17 05:00 Elliptocytes Not Reportable 05/10/17 05:00 Acanthocytes (Spur) Not Reportable 05/10/17 05:00 Rouleaux Not Reportable 05/10/17 05:00 Hemoglobin C Crystals Not Reportable 05/10/17 05:00 Schistocytes Not Reportable 05/10/17 05:00 Malaria parasites Not Reportable 05/10/17 05:00 ESR 6 mm/Hr (0-20) 05/09/17 13:00 Harley Bodies Not Reportable 05/10/17 05:00 Hem Pathologist Commnt No 05/10/17 05:00 PT 19.6 Sec. (12.2-14.9) H 05/09/17 17:32 INR 1.66 (0.87-1.13) H 05/09/17 17:32 VBG pH 7.345 (7.320-7.420) 05/09/17 13:43 Sodium 138 mmol/L (137-145) 05/14/17 04:57 Potassium 3.4 mmol/L (3.6-5.0) L 05/14/17 04:57 Chloride 96.6 mmol/L (98-107) L 05/14/17 04:57 Carbon Dioxide 28 mmol/L (22-30) 05/14/17 04:57 Anion Gap 17 mmol/L 05/14/17 04:57 BUN 3 mg/dL (9-20) L 05/14/17 04:57 Creatinine 0.6 mg/dL (0.8-1.5) L 05/14/17 04:57 Estimated GFR > 60 ml/min 05/14/17 04:57 BUN/Creatinine Ratio 5.00 % 05/14/17 04:57 Glucose 204 mg/dL (75-100) H 05/14/17 04:57 POC Glucose 329 (70-105) H 05/14/17 21:00 Hemoglobin A1c 11.3 % (4-6) H 05/09/17 17:32 Ketones Quantitative Moderate (Negative) 05/09/17 13:43 Lactic Acid 0.90 mmol/L (0.7-2.0) 05/13/17 05:24 Calcium 8.4 mg/dL (8.4-10.2) 05/14/17 04:57 Magnesium 2.40 mg/dL (1.7-2.3) H 05/12/17 05:08 Total Bilirubin 0.30 mg/dL (0.1-1.2) 05/10/17 05:00 AST 11 units/L (5-40) 05/10/17 05:00 ALT 6 units/L (7-56) L 05/10/17 05:00 Alkaline Phosphatase 111 units/L (35-129) 05/10/17 05:00 Total Creatine Kinase 25 units/L (55-170) L 05/09/17 13:43 C-Reactive Protein 53.30 mg/dL (0.00-1.30) H 05/09/17 13:00 Total Protein 7.7 g/dL (6.3-8.2) 05/10/17 05:00 Albumin 2.8 g/dL (3.9-5) L 05/10/17 05:00 Albumin/Globulin Ratio 0.6 % 05/10/17 05:00 Triglycerides 239 mg/dL (2-149) H 05/09/17 17:32 Cholesterol 124 mg/dL (50-199) 05/09/17 17:32 LDL Cholesterol Direct 72 mg/dL (50-130) 05/09/17 17:32 HDL Cholesterol 5 mg/dL (40-59) L 05/09/17 17:32 Cholesterol/HDL Ratio 24.80 % 05/09/17 17:32 Urine Color Yellow (Yellow) 05/09/17 14:44 Urine Turbidity Clear (Clear) 05/09/17 14:44 Urine pH 5.0 (5.0-7.0) 05/09/17 14:44 Ur Specific [place] 1.015 (1.003-1.030) 05/09/17 14:44 Urine Protein 30 mg/dl mg/dL (Negative) 05/09/17 14:44 Urine Glucose (UA) >=500 mg/dL (Negative) 05/09/17 14:44 Urine Ketones 80 mg/dL (Negative) 05/09/17 14:44 Urine Blood Mod (Negative) 05/09/17 14:44 Urine Nitrite Neg (Negative) 05/09/17 14:44 Urine Bilirubin Neg (Negative) 05/09/17 14:44 Urine Urobilinogen < 2.0 mg/dL (<2.0) 05/09/17 14:44 Ur Leukocyte Esterase Neg (Negative) 05/09/17 14:44 Urine WBC (Auto) < 1.0 /HPF (0.0-6.0) 05/09/17 14:44 Urine RBC (Auto) 1.0 /HPF (0.0-6.0) 05/09/17 14:44 U Epithel Cells (Auto) < 1.0 /HPF (0-13.0) 05/09/17 14:44 Urine Bacteria (Auto) 1+ /HPF (Negative) 05/09/17 14:44 Urine Mucus Few /HPF 05/09/17 14:44 Vancomycin Trough 2.4 ug/mL (5.0-20.0) L 05/12/17 05:08 Blood Type B POSITIVE 05/09/17 17:36 Antibody Screen TNR 05/09/17 17:36 KRISTOPHER Antibody Screen Negative 05/09/17 17:36
[2017-05-15] MEDS: LEVEMIR SUB-Q SCH (23:00)
[2017-05-16] MEDS: VANCOMYCIN 1,250 MG in NACL 0.9% 250ML 250 ML IV SCH ×2 (02:19→13:00)
[2017-05-16] MEDS: NACL 0.9% 1000 ML 1,000 ML IV SCH (02:19)
[2017-05-16] MEDS: CLEOCIN 900 MG/50 mL 900 MG/50 ML BAG IV SCH (05:12)
[2017-05-16] MEDS: NOVOLOG SUB-Q SCH ×3 (07:30→16:47)
[2017-05-16] MEDS ORDERED: XYLOCAINE 2% INFILTRATI ONE (08:18)
[2017-05-16] MEDS ORDERED: VERSED ONE (08:18)
[2017-05-16] MEDS ORDERED: ANCEF/STERILE WATER 2 GM/20 ML 2 GM/20 ML SYRINGE IV ONE (08:18)
[2017-05-16] MEDS ORDERED: HEPARIN/NS 5000 UNIT/500ML(CATH LAB) 1,000 ML IR ONE (08:18)
[2017-05-16] MEDS ORDERED: HEPARIN 10,000 UNITS/10 ML ONE (08:18)
[2017-05-16] MEDS ORDERED: SUBLIMAZE ONE (08:18)
[2017-05-16] MEDS ORDERED: NACL 0.9% 500 ML 500 ML ONE (08:19)
--- NOTE | 2017-05-16 09:09 | Operative Report ---
Operative Report Operative Report: EXAM: LEFT LOWER EXTREMITY ANGIOGRAPHY CLINICAL INDICATION: PATIENT WITH A HISTORY OF LEFT ANKLE ULCERATION WITH MONOPHASIC FLOW NOTED IN LOWER EXTREMITY ON ARTERIAL ULTRASOUND AND DATE: 05/16/2017 PROCEDURE: Following an explanation of the risks, benefits and alternatives; written informed consent was obtained. The patient was brought to the angiographic suite and placed in supine position on the examination table. Initial ultrasound evaluation of the right groin demonstrated a patent right common femoral artery. The right groin was prepped and draped in the usual sterile fashion. 1% lidocaine was used for anesthesia. Under ultrasound guidance, the right common femoral artery was cannulated with a 7 cm 21-gauge needle. A 0.018 guidewire was advanced centrally under fluoroscopy. The needle was removed and a micro-sheath placed. The 0.018 guidewire was exchanged for a 0.035 guidewire and the micro-sheath exchanged for a 5 Greek vascular sheath. A 5 Greek Omni flush catheter was then advanced over the guidewire under fluoroscopy to the distal abdominal aorta. Angiography was performed. This demonstrated a widely patent distal abdominal aorta and bilateral common iliac arteries. The bifurcation was then crossed using the Omni flush catheter and 0.035 guidewire under fluoroscopy. Angiography was performed which demonstrates a widely patent left external and internal iliac arteries and a patent left common femoral artery. The Omni flush catheter was then advanced over the guidewire to the left common femoral artery and angiography performed. This demonstrates a patent bifurcation of superficial femoral artery and profunda. Profunda and proximal superficial femoral artery widely patent. The Omni flush catheter was then exchanged over the guidewire for a 4 Greek vertebral catheter. The vertebral catheter was then placed over the guidewire under fluoroscopy in the mid SFA and additional angiography performed. This demonstrated a widely patent mid and distal SFA. The proximal popliteal artery is widely patent. The catheter was then advanced into the proximal popliteal artery and angiography performed to image the below the knee vessels. Approximately 20% stenosis is present at the bifurcation of anterior tibial artery and tibioperoneal trunk. The anterior tibial artery otherwise remains widely patent to the foot without hemodynamically significant stenosis. The posterior tibial artery is patent with the foot without hemodynamically significant stenosis. The peroneal artery is widely patent without hemodynamically significant stenosis. The pedal arch is intact. At this point, the catheters, guidewires and sheaths were removed and hemostasis achieved using manual compression and an Angio-Seal arterial closure device. A sterile dressing was then applied. The patient tolerated the procedure well. There were no immediate post procedure complications. Conscious sedation was performed under the guidance of radiologic nursing. Continuous cardiopulmonary monitoring was utilized. IMPRESSION: 1) Aortography and left lower extremity angiography with catheter tip placement in the distal abdominal aorta, left common iliac artery, left common femoral artery, left superficial femoral artery and left popliteal artery. 2) 20% stenosis involving the origin of both the anterior tibial artery and tibioperoneal trunk the remaining visualized vessels are widely patent.
--- NOTE | 2017-05-16 09:11 | Event Note ---
Date: 05/16/17 Patient status post left lower extremity angiography which demonstrates 20% stenosis involving the origin of the anterior tibial artery and tibioperoneal trunk. This is not hemodynamically significant stenosis. The patient was closed with an Angio-Seal and following 2 hours of bedrest, the patient may be discharged home.
[2017-05-16 09:31] VITALS: BP 125/82
--- NOTE | 2017-05-16 09:34 | Progress Note ---
Assessment and Plan - Patient Problems (1) Necrotizing fasciitis Current Visit: Yes Status: Acute Plan to address problem: 1. No significant stenoses seen on angiography of left leg. 2. Continue Vancomycin/ Clindamycin combination for now. Plan for Clindamycin for 5-7 days post-debridement. 3. Recommend oral Linezolid until ~ May 27, 2017. Course may need to be extended based on improvement of ankle wound. I will request case management assistance in getting antibiotics. 4. Patient has multiple drug allergies, which limit oral antibiotic options. 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 Subjective Date of service: 05/16/17 Principal diagnosis: Necrotizing Fasciitis Left Ankle Interval history: Afebrile. No new clinical events. Objective - Constitutional Vitals: Vital Signs Temp Pulse Resp BP Pulse Ox 99.5 F 91 H 16 109/68 97 05/15/17 23:43 05/15/17 23:43 05/15/17 23:43 05/15/17 23:43 05/15/17 23:43 Temperature -Last 24 Hours Temperature 99.5 F Temperature 98.3 F General appearance: Present: no acute distress - Respiratory Respiratory: bilateral: CTA - Cardiovascular Rhythm: regular Heart Sounds: Present: S1 & S2 Extremity abnormal: edema (unchanged left ankle wound, serous drainage, no crepitus) - Gastrointestinal General gastrointestinal: Present: soft, non-tender, non-distended - Integumentary Integumentary: clear, no rash - Neurologic Neurologic: moves all extremities - Psychiatric Psychiatric: appropriate mood/affect - Labs CBC & Chem 7: 05/14/17 04:57 05/14/17 04:57 Labs: Abnormal lab results 05/15/17 05/15/17 05/16/17 Range/Units 11:29 21:23 06:19 POC Glucose 302 H 299 H 208 H (70-105) - Imaging and cardiology Other: report reviewed (Left Leg Angiography - 20% or less stenosis seen, most vessels are widely patent)
[2017-05-16] MEDS: DAKIN'S HALF STRENGTH TP SCH (10:00)
[2017-05-16] MEDS: PEPCID PO SCH (10:00)
--- NOTE | 2017-05-16 10:35 | Progress Note ---
Assessment and Plan Assessment and plan: Patient is 36 yo man with a history of diabetes mellitus type 2, hypertension, dyslipidemia and asthma who presents to [facility] emergency department with left ankle infection -Sepsis with necrotizing fascitis of the left leg/ankle with cellulitis, poa: Going for surgery today, continue IV antibiotics, consulted ID -Suspected peripheral vascular disease related to diabetes mellitus with poor glycemic control/healing leading to necrotizing skin infection and above: Maintain systemic control -Type 2 diabetes mellitus with complications/hyperglycemia: As slightly scale insulin, ADA diet -Hypertension: Antihypertensive -DVT prophylaxis: Subcutaneous Lovenox was ordered 05/10/17 d/w Infectious Disease, Dr. Shahid. Concern is necrotizing fascitis. I have also reached out to Ortho Surgeon, Dr. Garcia, who did bedside I-n-D, to re-evaluate. Patient may need additional/extensive debridement. So, I made patient NPO after midnight and reduced his long acting insulin dose (levemir tonight) by half. I will add front desk monitor also 05/11/17 seen and examined and discussed with Dr. Garcia at bedside. Patient went back to surgery 05/12/17: wbc decreasing, afebrile since debribement, potassium replaced, wound care consulted, continue abx 05/13/17: Dr. Garcia recommends hyberbaric oxygen and eventual skin grafing , I called wound care and d/w wound care nurse Jyoti==> once he is out of the hospital, he can go to wound care clinic (still running a fever) for Hyperbaric O2, hopefully he can be setup for hyperbaric O2 soon. Insurance approval needed per Jyoti CHAIREZ. Overnight he had a fever. Continue abx. 05/14/17: wounds looks much better, no necrosis within the wound, edges look clean. Continue abx thru this weekend per Ortho instruction, d/c probably Tuesday or Tuesday, when hyperbaric o2 setup. 05/15/17: Consulted vascular, Dr. Avila and his recommendation as follows: "Patient with a history of left ankle ulceration and peripheral vascular disease with acute increased velocities in his tibial vessels and popliteal vessel on the left. Patient will be scheduled for an angiogram with possible intervention tomorrow. This was discussed with the patient." 05/16/17: EXAM: LEFT LOWER EXTREMITY ANGIOGRAPHY, CLINICAL INDICATION: PATIENT WITH A HISTORY OF LEFT ANKLE ULCERATION WITH MONOPHASIC FLOW NOTED IN LOWER EXTREMITY ON ARTERIAL ULTRASOUND AND PROCEDURE: Following an explanation of the risks, benefits and alternatives; written informed consent was obtained. The patient was brought to the angiographic suite and placed in supine position on the examination table. Initial ultrasound evaluation of the right groin demonstrated a patent right common femoral artery. The right groin was prepped and draped in the usual sterile fashion. 1% lidocaine was used for anesthesia. Under ultrasound guidance, the right common femoral artery was cannulated with a 7 cm 21-gauge needle. A 0.018 guidewire was advanced centrally under fluoroscopy. The needle was removed and a micro-sheath placed. The 0.018 guidewire was exchanged for a 0.035 guidewire and the micro-sheath exchanged for a 5 [place] vascular sheath. A 5 [place] Omni flush catheter was then advanced over the guidewire under fluoroscopy to the distal abdominal aorta. Angiography was performed. This demonstrated a widely patent distal abdominal aorta and bilateral common iliac arteries. The bifurcation was then crossed using the Omni flush catheter and 0.035 guidewire under fluoroscopy. Angiography was performed which demonstrates a widely patent left external and internal iliac arteries and a patent left common femoral artery. The Omni flush catheter was then advanced over the guidewire to the left common femoral artery and angiography performed. This demonstrates a patent bifurcation of superficial femoral artery and profunda. Profunda and proximal superficial femoral artery widely patent. The Omni flush catheter was then exchanged over the guidewire for a 4 [place] vertebral catheter. The vertebral catheter was then placed over the guidewire under fluoroscopy in the mid SFA and additional angiography performed. This demonstrated a widely patent mid and distal SFA. The proximal popliteal artery is widely patent. The catheter was then advanced into the proximal popliteal artery and angiography performed to image the below the knee vessels. Approximately 20% stenosis is present at the bifurcation of anterior tibial artery and tibioperoneal trunk. The anterior tibial artery otherwise remains widely patent to the foot without hemodynamically significant stenosis. The posterior tibial artery is patent with the foot without hemodynamically significant stenosis. The peroneal artery is widely patent without hemodynamically significant stenosis. The pedal arch is intact. At this point, the catheters, guidewires and sheaths were removed and hemostasis achieved using manual compression and an Angio-Seal arterial closure device. A sterile dressing was then applied. The patient tolerated the procedure well. There were no immediate post procedure complications. Conscious sedation was performed under the guidance of radiologic nursing. Continuous cardiopulmonary monitoring was utilized. IMPRESSION: 1) Aortography and left lower extremity angiography with catheter tip placement in the distal abdominal aorta, left common iliac artery, left common femoral artery, left superficial femoral artery and left popliteal artery. 2) 20% stenosis involving the origin of both the anterior tibial artery and tibioperoneal trunk the remaining visualized vessels are widely patent. Patient status post left lower extremity angiography which demonstrates 20% stenosis involving the origin of the anterior tibial artery and tibioperoneal trunk. This is not hemodynamically significant stenosis. The patient was closed with an Angio-Seal and following 2 hours of bedrest, the patient may be discharged home." per ID, Dr. Shahid:"(1) Necrotizing fasciitis Current Visit: Yes Status: Acute Plan to address problem: 1. No significant stenoses seen on angiography of left leg. 2. Continue Rocephin/ Clindamycin combination for now. Plan for Clindamycin for 5-7 days post-debridement. 3. Recommend oral Levaquin (not Cipro) or Linezolid until ~ May 27, 2017. Course may need to be extended based on improvement of ankle wound." History Interval history: Patient seen and examined. Follow up on current diagnosis/left ankle infection. Overnight uneventful. No cp, sob, n/v or severe headaches. Imaging, old records , testing, labs, nursing notes reviewed. Hospitalist Physical - Physical exam Narrative exam: GEN: WDWN, NAD, AWAKE, ALERT, ORIENTATED x 3 HEENT: NCAT, PERRL, EOMI, OP CLEAR NECK: SUPPLE, NO THYROMEGALY, NO JVD, NO LAD CVS: regular tachycardia, NORMAL S1S2 LUNGS/CHEST: CTA B, NORMAL CHEST EXPANSION B, GOOD AIR ENTRY B ABD: SOFT, NTND, GBS, NO REBOUND OR GUARDING EXT/SKIN: Left medial malleous extensive ulceration with extensive debribement, small upper edge 1mm black spot left, Left big toe also has a stage III ulcer MSK: FROM X 4 EXTREMITIES NEURO: CN 2-12 GROSSLY INTACT, NO FOCAL DEFICITS PSY: CALM - Constitutional Vitals: Temp Pulse Resp BP Pulse Ox 97.8 F 98 H 18 125/82 97 05/16/17 08:00 05/16/17 08:00 05/16/17 08:00 05/16/17 08:00 05/16/17 08:00 General appearance: Present: no acute distress Results - Labs CBC & Chem 7: 05/14/17 04:57 05/14/17 04:57 Labs: Laboratory Last Values WBC 12.8 K/mm3 (4.5-11.0) H 05/14/17 04:57 RBC 4.17 M/mm3 (3.65-5.03) 05/14/17 04:57 Hgb 11.1 gm/dl (11.8-15.2) L 05/14/17 04:57 Hct 33.2 % (35.5-45.6) L 05/14/17 04:57 MCV 80 fl (84-94) L 05/14/17 04:57 MCH 27 pg (28-32) L 05/14/17 04:57 MCHC 34 % (32-34) 05/14/17 04:57 RDW 13.9 % (13.2-15.2) 05/14/17 04:57 Plt Count 835 K/mm3 (140-440) H 05/14/17 04:57 Add Manual Diff Complete 05/10/17 05:00 Total Counted 100 05/10/17 05:00 Seg Neuts % (Manual) 53.0 % (40.0-70.0) 05/10/17 05:00 Band Neutrophils % 23.0 % 05/10/17 05:00 Lymphocytes % (Manual) 16.0 % (13.4-35.0) 05/10/17 05:00 Reactive Lymphs % (Man) 0 % 05/10/17 05:00 Monocytes % (Manual) 4.0 % (0.0-7.3) 05/10/17 05:00 Eosinophils % (Manual) 0 % (0.0-4.3) 05/10/17 05:00 Basophils % (Manual) 2.0 % (0.0-1.8) H 05/10/17 05:00 Metamyelocytes % 2.0 % 05/10/17 05:00 Myelocytes % 0 % 05/10/17 05:00 Promyelocytes % 0 % 05/10/17 05:00 Blast Cells % 0 % 05/10/17 05:00 Nucleated RBC % Not Reportable 05/10/17 05:00 Seg Neutrophils # Man 12.8 K/mm3 (1.8-7.7) H 05/10/17 05:00 Band Neutrophils # 5.6 K/mm3 05/10/17 05:00 Lymphocytes # (Manual) 3.9 K/mm3 (1.2-5.4) 05/10/17 05:00 Abs React Lymphs (Man) 0.0 K/mm3 05/10/17 05:00 Monocytes # (Manual) 1.0 K/mm3 (0.0-0.8) H 05/10/17 05:00 Eosinophils # (Manual) 0.0 K/mm3 (0.0-0.4) 05/10/17 05:00 Basophils # (Manual) 0.5 K/mm3 (0.0-0.1) H 05/10/17 05:00 Metamyelocytes # 0.5 K/mm3 05/10/17 05:00 Myelocytes # 0.0 K/mm3 05/10/17 05:00 Promyelocytes # 0.0 K/mm3 05/10/17 05:00 Blast Cells # 0.0 K/mm3 05/10/17 05:00 WBC Morphology Not Reportable 05/10/17 05:00 Hypersegmented Neuts Not Reportable 05/10/17 05:00 Hyposegmented Neuts Not Reportable 05/10/17 05:00 Hypogranular Neuts Not Reportable 05/10/17 05:00 Smudge Cells Not Reportable 05/10/17 05:00 Toxic Granulation Not Reportable 05/10/17 05:00 Toxic Vacuolation Not Reportable 05/10/17 05:00 Dohle Bodies Not Reportable 05/10/17 05:00 Pelger-Huet Anomaly Not Reportable 05/10/17 05:00 Pranay Rods Not Reportable 05/10/17 05:00 Platelet Estimate Appears normal 05/10/17 05:00 Clumped Platelets Not Reportable 05/10/17 05:00 Plt Clumps, EDTA Not Reportable 05/10/17 05:00 Large Platelets Not Reportable 05/10/17 05:00 Giant Platelets Not Reportable 05/10/17 05:00 Platelet Satelliting Not Reportable 05/10/17 05:00 Plt Morphology Comment Not Reportable 05/10/17 05:00 RBC Morphology Not Reportable 05/10/17 05:00 Dimorphic RBCs Not Reportable 05/10/17 05:00 Polychromasia Not Reportable 05/10/17 05:00 Hypochromasia 1+ 05/10/17 05:00 Poikilocytosis Not Reportable 05/10/17 05:00 Anisocytosis 1+ 05/10/17 05:00 Microcytosis Not Reportable 05/10/17 05:00 Macrocytosis Not Reportable 05/10/17 05:00 Spherocytes Not Reportable 05/10/17 05:00 Pappenheimer Bodies Not Reportable 05/10/17 05:00 Sickle Cells Not Reportable 05/10/17 05:00 Target Cells Not Reportable 05/10/17 05:00 Tear Drop Cells Not Reportable 05/10/17 05:00 Ovalocytes Not Reportable 05/10/17 05:00 Helmet Cells Not Reportable 05/10/17 05:00 [place] Bodies Not Reportable 05/10/17 05:00 K[place] Rings Not Reportable 05/10/17 05:00 Haile Cells Not Reportable 05/10/17 05:00 Bite Cells Not Reportable 05/10/17 05:00 Crenated Cell Not Reportable 05/10/17 05:00 Elliptocytes Not Reportable 05/10/17 05:00 Acanthocytes (Spur) Not Reportable 05/10/17 05:00 Rouleaux Not Reportable 05/10/17 05:00 Hemoglobin C Crystals Not Reportable 05/10/17 05:00 Schistocytes Not Reportable 05/10/17 05:00 Malaria parasites Not Reportable 05/10/17 05:00 ESR 6 mm/Hr (0-20) 05/09/17 13:00 Harley Bodies Not Reportable 05/10/17 05:00 Hem Pathologist Commnt No 05/10/17 05:00 PT 19.6 Sec. (12.2-14.9) H 05/09/17 17:32 INR 1.66 (0.87-1.13) H 05/09/17 17:32 VBG pH 7.345 (7.320-7.420) 05/09/17 13:43 Sodium 138 mmol/L (137-145) 05/14/17 04:57 Potassium 3.4 mmol/L (3.6-5.0) L 05/14/17 04:57 Chloride 96.6 mmol/L (98-107) L 05/14/17 04:57 Carbon Dioxide 28 mmol/L (22-30) 05/14/17 04:57 Anion Gap 17 mmol/L 05/14/17 04:57 BUN 3 mg/dL (9-20) L 05/14/17 04:57 Creatinine 0.6 mg/dL (0.8-1.5) L 05/14/17 04:57 Estimated GFR > 60 ml/min 05/14/17 04:57 BUN/Creatinine Ratio 5.00 % 05/14/17 04:57 Glucose 204 mg/dL (75-100) H 05/14/17 04:57 POC Glucose 208 (70-105) H 05/16/17 06:19 Hemoglobin A1c 11.3 % (4-6) H 05/09/17 17:32 Ketones Quantitative Moderate (Negative) 05/09/17 13:43 Lactic Acid 0.90 mmol/L (0.7-2.0) 05/13/17 05:24 Calcium 8.4 mg/dL (8.4-10.2) 05/14/17 04:57 Magnesium 2.40 mg/dL (1.7-2.3) H 05/12/17 05:08 Total Bilirubin 0.30 mg/dL (0.1-1.2) 05/10/17 05:00 AST 11 units/L (5-40) 05/10/17 05:00 ALT 6 units/L (7-56) L 05/10/17 05:00 Alkaline Phosphatase 111 units/L (35-129) 05/10/17 05:00 Total Creatine Kinase 25 units/L (55-170) L 05/09/17 13:43 C-Reactive Protein 53.30 mg/dL (0.00-1.30) H 05/09/17 13:00 Total Protein 7.7 g/dL (6.3-8.2) 05/10/17 05:00 Albumin 2.8 g/dL (3.9-5) L 05/10/17 05:00 Albumin/Globulin Ratio 0.6 % 05/10/17 05:00 Triglycerides 239 mg/dL (2-149) H 05/09/17 17:32 Cholesterol 124 mg/dL (50-199) 05/09/17 17:32 LDL Cholesterol Direct 72 mg/dL (50-130) 05/09/17 17:32 HDL Cholesterol 5 mg/dL (40-59) L 05/09/17 17:32 Cholesterol/HDL Ratio 24.80 % 05/09/17 17:32 Urine Color Yellow (Yellow) 05/09/17 14:44 Urine Turbidity Clear (Clear) 05/09/17 14:44 Urine pH 5.0 (5.0-7.0) 05/09/17 14:44 Ur Specific [place] 1.015 (1.003-1.030) 05/09/17 14:44 Urine Protein 30 mg/dl mg/dL (Negative) 05/09/17 14:44 Urine Glucose (UA) >=500 mg/dL (Negative) 05/09/17 14:44 Urine Ketones 80 mg/dL (Negative) 05/09/17 14:44 Urine Blood Mod (Negative) 05/09/17 14:44 Urine Nitrite Neg (Negative) 05/09/17 14:44 Urine Bilirubin Neg (Negative) 05/09/17 14:44 Urine Urobilinogen < 2.0 mg/dL (<2.0) 05/09/17 14:44 Ur Leukocyte Esterase Neg (Negative) 05/09/17 14:44 Urine WBC (Auto) < 1.0 /HPF (0.0-6.0) 05/09/17 14:44 Urine RBC (Auto) 1.0 /HPF (0.0-6.0) 05/09/17 14:44 U Epithel Cells (Auto) < 1.0 /HPF (0-13.0) 05/09/17 14:44 Urine Bacteria (Auto) 1+ /HPF (Negative) 05/09/17 14:44 Urine Mucus Few /HPF 05/09/17 14:44 Vancomycin Trough 2.4 ug/mL (5.0-20.0) L 05/12/17 05:08 Blood Type B POSITIVE 05/09/17 17:36 Antibody Screen TNR 05/09/17 17:36 KRISTOPHER Antibody Screen Negative 05/09/17 17:36
--- NOTE | 2017-05-16 10:40 | Discharge Summary ---
Providers - Providers Date of Admission: 05/09/17 17:01 Date of discharge: 05/16/17 Attending physician: DEBBIE GONSALES 05/10/17 13:00 Consult to Physician [CONS] Routine Consulting Provider: CECILIA SHAHID Reason For Exam: necrotizing cellulitis Place consult to:: Zehra BISHOP Notified:: DR. SHAHID Phone number called:: [phone] Was contact made?: Yes If yes, spoke with:: ZEHRA Time called:: 13:12 Comment:: PAT NOTIFIED 05/11/17 14:04 Consult to Wound/ET Nurse [CONS] Stat Reason For Exam: wound eval 05/11/17 17:43 Consult to Wound/ET Nurse [CONS] Urgent Reason For Exam: wound evaluation and wound vac placement 05/12/17 12:16 Consult to Physician [CONS] Routine Consulting Provider: BELA WILLIAMSON Reason For Exam: left foot necrotizing fasciitis Place consult to:: Dr williamson Notified:: yes Was contact made?: Yes Time called:: 10:00 05/14/17 11:41 Consult to Physician [CONS] Routine Consulting Provider: FAUZIA AVILA Reason For Exam: evaluate PVD in dm w/ leg necrotizing fascitis Place consult to:: Dr. Delfino Covarrubias Notified:: DR. AVILA Phone number called:: [phone] Was contact made?: Yes If yes, spoke with:: /DR. 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 Initially, he had bedside I-n-D by Dr. Garcia, Ortho on 05/10/17, then patient to OR for extensive debridement on 05/11/17 and it appears the necrotic tissue has been removed with great success. He will need outpatient hyperbaric once his insurance approves. -Sepsis with necrotizing fascitis of the left leg/ankle with cellulitis, poa -Suspected peripheral vascular disease related to diabetes mellitus with poor glycemic control/healing leading to necrotizing skin infection and above: Maintain glycemic control -Type 2 diabetes mellitus with complications/hyperglycemia: added sliding scale insulin, ADA diet -Hypertension: Antihypertensive -DVT prophylaxis: Subcutaneous Lovenox was ordered 05/10/17 d/w Infectious Disease, Dr. Shahid. Concern is necrotizing fascitis. I have also reached out to Ortho Surgeon, Dr. Garcia, who did bedside I-n-D, to re-evaluate. Patient may need additional/extensive debridement. So, I made patient NPO after midnight and reduced his long acting insulin dose (levemir tonight) by half. I will add monitoring specialist also 05/11/17 seen and examined and discussed with Dr. Garcia at bedside. Patient went back to surgery 05/12/17: wbc decreasing, afebrile since debribement, potassium replaced, wound care consulted, continue abx 05/13/17: Dr. Garcia recommends hyberbaric oxygen and eventual skin grafing , I called wound care and d/w wound care nurse Jyoti==> once he is out of the hospital, he can go to wound care clinic (still running a fever) for Hyperbaric O2, hopefully he can be setup for hyperbaric O2 soon. Insurance approval needed per Jyoti CHAIREZ. Overnight he had a fever. Continue abx. 05/14/17: wounds looks much better, no necrosis within the wound, edges look clean. Continue abx thru this weekend per Ortho instruction, d/c probably Tuesday or Tuesday, when hyperbaric o2 setup. 05/15/17: Consulted vascular, Dr. Avila and his recommendation as follows: "Patient with a history of left ankle ulceration and peripheral vascular disease with acute increased velocities in his tibial vessels and popliteal vessel on the left. Patient will be scheduled for an angiogram with possible intervention tomorrow. This was discussed with the patient." 05/16/17: EXAM: LEFT LOWER EXTREMITY ANGIOGRAPHY, CLINICAL INDICATION: PATIENT WITH A HISTORY OF LEFT ANKLE ULCERATION WITH MONOPHASIC FLOW NOTED IN LOWER EXTREMITY ON ARTERIAL ULTRASOUND AND PROCEDURE: Following an explanation of the risks, benefits and alternatives; written informed consent was obtained. The patient was brought to the angiographic suite and placed in supine position on the examination table. Initial ultrasound evaluation of the right groin demonstrated a patent right common femoral artery. The right groin was prepped and draped in the usual sterile fashion. 1% lidocaine was used for anesthesia. Under ultrasound guidance, the right common femoral artery was cannulated with a 7 cm 21-gauge needle. A 0.018 guidewire was advanced centrally under fluoroscopy. The needle was removed and a micro-sheath placed. The 0.018 guidewire was exchanged for a 0.035 guidewire and the micro-sheath exchanged for a 5 Gambian vascular sheath. A 5 Gambian Omni flush catheter was then advanced over the guidewire under fluoroscopy to the distal abdominal aorta. Angiography was performed. This demonstrated a widely patent distal abdominal aorta and bilateral common iliac arteries. The bifurcation was then crossed using the Omni flush catheter and 0.035 guidewire under fluoroscopy. Angiography was performed which demonstrates a widely patent left external and internal iliac arteries and a patent left common femoral artery. The Omni flush catheter was then advanced over the guidewire to the left common femoral artery and angiography performed. This demonstrates a patent bifurcation of superficial femoral artery and profunda. Profunda and proximal superficial femoral artery widely patent. The Omni flush catheter was then exchanged over the guidewire for a 4 Gambian vertebral catheter. The vertebral catheter was then placed over the guidewire under fluoroscopy in the mid SFA and additional angiography performed. This demonstrated a widely patent mid and distal SFA. The proximal popliteal artery is widely patent. The catheter was then advanced into the proximal popliteal artery and angiography performed to image the below the knee vessels. Approximately 20% stenosis is present at the bifurcation of anterior tibial artery and tibioperoneal trunk. The anterior tibial artery otherwise remains widely patent to the foot without hemodynamically significant stenosis. The posterior tibial artery is patent with the foot without hemodynamically significant stenosis. The peroneal artery is widely patent without hemodynamically significant stenosis. The pedal arch is intact. At this point, the catheters, guidewires and sheaths were removed and hemostasis achieved using manual compression and an Angio-Seal arterial closure device. A sterile dressing was then applied. The patient tolerated the procedure well. There were no immediate post procedure complications. Conscious sedation was performed under the guidance of radiologic nursing. Continuous cardiopulmonary monitoring was utilized. IMPRESSION: 1) Aortography and left lower extremity angiography with catheter tip placement in the distal abdominal aorta, left common iliac artery, left common femoral artery, left superficial femoral artery and left popliteal artery. 2) 20% stenosis involving the origin of both the anterior tibial artery and tibioperoneal trunk the remaining visualized vessels are widely patent. Patient status post left lower extremity angiography which demonstrates 20% stenosis involving the origin of the anterior tibial artery and tibioperoneal trunk. This is not hemodynamically significant stenosis. The patient was closed with an Angio-Seal and following 2 hours of bedrest, the patient may be discharged home." per ID, Dr. Shahid:"(1) Necrotizing fasciitis Current Visit: Yes Status: Acute Plan to address problem: 1. No significant stenoses seen on angiography of left leg. 2. Continue Rocephin/ Clindamycin combination for now. Plan for Clindamycin for 5-7 days post-debridement. 3. Recommend oral Levaquin (not Cipro) or Linezolid until ~ May 27, 2017. Course may need to be extended based on improvement of ankle wound." Disposition: DC-01 TO HOME OR SELFCARE Time spent for discharge: 39 minutes Core Measure Documentation - Palliative Care Palliative Care/ Comfort Measures: Not Applicable - Core Measures Any of the following diagnoses?: none - VTE Discharge Requirements Deep Vein Thrombosis/Pulmonary Embolism Present on Admission: No Has pt received <5 days of overlap therapy or INR<2.0: No Anticoagulant overlap therapy prescribed at discharge: No Contraindication No Overlap Therapy order at DC: Not Indicated Exam - Physical Exam Narrative exam: GEN: WDWN, NAD, AWAKE, ALERT, ORIENTATED x 3 HEENT: NCAT, PERRL, EOMI, OP CLEAR NECK: SUPPLE, NO THYROMEGALY, NO JVD, NO LAD CVS: regular tachycardia, NORMAL S1S2 LUNGS/CHEST: CTA B, NORMAL CHEST EXPANSION B, GOOD AIR ENTRY B ABD: SOFT, NTND, GBS, NO REBOUND OR GUARDING EXT/SKIN: Left medial malleous extensive ulceration with extensive debribement, small upper edge 1mm black spot left, Left big toe also has a stage III ulcer MSK: FROM X 4 EXTREMITIES NEURO: CN 2-12 GROSSLY INTACT, NO FOCAL DEFICITS PSY: CALM - Constitutional Vitals: Temp Pulse Resp BP Pulse Ox 97.8 F 98 H 18 125/82 97 05/16/17 08:00 05/16/17 08:00 05/16/17 08:00 05/16/17 08:00 05/16/17 08:00 Plan Activity: other (no strenous activites until cleared by orthopedics surgeon) Diet: low salt, diabetic Wound: per your surgeon's advice Additional Instructions: Hyperbaric oxygen therapy with Dr. Bela Williamson at [facility] Follow up with: PRIMARY CAREMD [Primary Care Provider] - 3-5 Days VIRAL GARCIA MD [Staff Physician] - 7 Days BELA WILLIAMSON MD [Staff Physician] - 3 Days Prescriptions: Famotidine [Pepcid] 20 mg PO BID #30 tablet HYDROcodone/APAP 5-325 [[place] 5-325 mg TAB] 1 each PO Q6H PRN #30 tablet PRN Reason: Pain , Severe (7-10) Insulin Aspart [NovoLOG Flexpen] 1 dose SQ AC PRN #1 pen PRN Reason: Hyperglycemia Linezolid [Zyvox] 600 mg PO BID #11 day
[2017-05-16] MEDS: NORCO 5/325 PO PRN (13:01)
--- NOTE | 2017-05-17 11:03 | Vascular Lab Report ---
LOWER EXTREMITY ARTERIAL DUPLEX: REASON FOR EXAM: Peripheral arterial disease. COMMENTS ON THE RIGHT: Triphasic waveforms are seen proximally. Triphasic waveforms are seen distally. No significant velocity gradients are identified. No focal significant plaque is identified. Findings are consistent with normal perfusion. Findings are consistent with the ability to heal distal wounds. COMMENTS ON THE LEFT: Triphasic waveforms are seen proximally. Monophasic waveforms are seen distally. No significant velocity gradients are identified. No focal significant plaque is identified. Findings are consistent with abnormal perfusion. Findings are inconclusive with the ability to heal distal wounds. The distal monophasic waveforms may be a sign of unidentified proximal stenosis. Clinical correlation recommended IMPRESSION: RIGHT: Essentially normal arterial flow. LEFT:Abnormal flow distally could represent unidentified stenosis. Clinical correlation recommended..
--- NOTE | 2017-05-17 11:04 | Vascular Lab Report ---
LOWER EXTREMITY ARTERIAL PHYSIOLOGIC STUDY: REASON FOR EXAM: Peripheral arterial disease. COMMENTS ON THE RIGHT: Ankle brachial index is 1.16. This value is normal. Toe brachial index is 1.21. This value is normal. Wound healing is likely. Pulse volume recording at the level of the ankle is normal. Exercise testing was not done. COMMENTS ON THE LEFT: Ankle brachial index is 1.16. This value is normal. Toe brachial index is 0.95. This value is normal. Wound healing is likely. Pulse volume recording at the level of the ankle is normal. Exercise testing was not done. IMPRESSION: RIGHT: No hemodynamically significant arterial disease. LEFT:No hemodynamically significant arterial disease.
--- NOTE | 2017-05-17 11:24 | Vascular Lab Report ---
MISCELLANEOUS VESSEL IDENTIFICATION: COMMENTS ON THE SCAN: The right common femoral artery was identified and under real-time ultrasound guidance was cannulated. IMPRESSION: Successful ultrasound guided arterial cannulation.
== END 2017-05-16 18:23 | disposition home health service (06) | DRG 853 ==
LOC: ED 11:09 → 3A 17:01
PROVIDERS: ADMIT Internal Medicine; ATTEND Internal Medicine
PROC: 0J9P0ZX Drainage of Left Lower Leg Subcutaneous Tissue and Fascia, Open Approach, Diagnostic (ICD-10-PCS; principal; 2017-05-09)
PROC: 0JBR0ZZ Excision of Left Foot Subcutaneous Tissue and Fascia, Open Approach (ICD-10-PCS; 2017-05-11)
PROC: B41D1ZZ Fluoroscopy of Aorta and Bilateral Lower Extremity Arteries using Low Osmolar Contrast (ICD-10-PCS; 2017-05-16)
DX: A41.9 Sepsis, unspecified organism (principal); M72.6 Necrotizing fasciitis; L03.90 Cellulitis, unspecified; E11.51 Type 2 diabetes mellitus with diabetic peripheral angiopathy without gangrene; E11.65 Type 2 diabetes mellitus with hyperglycemia; J45.909 Unspecified asthma, uncomplicated; G89.29 Other chronic pain; M54.9 Dorsalgia, unspecified; F17.210 Nicotine dependence, cigarettes, uncomplicated; E87.1 Hypo-osmolality and hyponatremia; E78.5 Hyperlipidemia, unspecified; E87.6 Hypokalemia; L02.416 Cutaneous abscess of left lower limb; L02.612 Cutaneous abscess of left foot; I70.202 Unspecified atherosclerosis of native arteries of extremities, left leg; Z88.1 Allergy status to other antibiotic agents; Z88.2 Allergy status to sulfonamides; Z88.8 Allergy status to other drugs, medicaments and biological substances
CPT/HCPCS: 36247; 36415; 75710; 76937; 80048; 80053; 80061; 80202; 81001; 82010; 82140; 82550; 82805; 82962; 83036; 83735; 84132; 85007; 85025; 85027; 85610; 85652; 86140; 86850; 86900; 86901; 87040; 87116; 88305; 93005; 93010; 93922; 93925; 96365; 96366; 96367; 96375; 99285; A6260; C1760; C1769; C1887; J0690; J1170; J1644; J1650; J1815; J1818; J2250; J2270; J2405; J2543; J2704; J3010; J3370; J3480; J7030; J7040; J7050; Q9967

== ENCOUNTER 2017-05-19 08:11 | Outpatient (CLI) | payer MEDICAID ==
[2017-05-19] MEDS ORDERED: XYLOCAINE TOPICAL 4% TP ONE ×2 (09:17→09:27)
[2017-05-19] MEDS ORDERED: XYLOCAINE 1%/ EPI 1:100,000 INFILTRATI ONE ×2 (09:53→09:54)
== END 2017-05-19 08:12 | disposition home or self-care (01) ==
LOC: WOUND 08:11
PROVIDERS: ATTEND Surgery
DX: E11.622 Type 2 diabetes mellitus with other skin ulcer (principal); L97.823 Non-pressure chronic ulcer of other part of left lower leg with necrosis of muscle; L97.321 Non-pressure chronic ulcer of left ankle limited to breakdown of skin; E11.40 Type 2 diabetes mellitus with diabetic neuropathy, unspecified; K21.9 Gastro-esophageal reflux disease without esophagitis; F17.200 Nicotine dependence, unspecified, uncomplicated
CPT/HCPCS: 11042; 11045; G0463; 71020

== ENCOUNTER 2017-05-19 10:46 | Outpatient (CLI) | payer MEDICAID ==
--- NOTE | 2017-05-19 11:15 | XRay Report ---
Chest 2 views: History: HBO clearance. Findings: Normal cardiomediastinal silhouette. Trachea is midline. No consolidation, pneumothorax or pleural effusion. Impression: No acute cardiopulmonary findings.
== END 2017-05-19 10:47 | disposition home or self-care (01) ==
LOC: XRAY 10:46
PROVIDERS: ATTEND Surgery
DX: Z01.818 Encounter for other preprocedural examination (principal); J45.909 Unspecified asthma, uncomplicated; E11.9 Type 2 diabetes mellitus without complications; F17.200 Nicotine dependence, unspecified, uncomplicated
CPT/HCPCS: 71020

== ENCOUNTER 2017-05-31 11:31 | Outpatient (CLI) | payer MEDICAID ==
[2017-05-31] MEDS ORDERED: XYLOCAINE TOPICAL 4% TP ONE ×2 (12:14→15:00)
== END 2017-05-31 11:32 | disposition home or self-care (01) ==
LOC: WOUND 11:31
PROVIDERS: ATTEND Surgery
DX: E11.622 Type 2 diabetes mellitus with other skin ulcer (principal); L97.321 Non-pressure chronic ulcer of left ankle limited to breakdown of skin; K21.9 Gastro-esophageal reflux disease without esophagitis; F17.210 Nicotine dependence, cigarettes, uncomplicated
CPT/HCPCS: 97606

== ENCOUNTER 2017-06-03 11:03 | Outpatient (CLI) | payer MEDICAID | END 2017-06-03 11:04 | disposition home or self-care (01) | LOC: WOUND 11:03 | PROVIDERS: ATTEND Podiatrist | DX: E11.622 Type 2 diabetes mellitus with other skin ulcer (principal); L97.823 Non-pressure chronic ulcer of other part of left lower leg with necrosis of muscle; K21.9 Gastro-esophageal reflux disease without esophagitis; F17.210 Nicotine dependence, cigarettes, uncomplicated | CPT/HCPCS: 97606 ==

== ENCOUNTER 2017-06-07 13:15 | Outpatient (CLI) | payer MEDICAID ==
[2017-06-07] MEDS ORDERED: XYLOCAINE TOPICAL 4% TP ONE (14:20)
[2017-06-07] MEDS ORDERED: NACL 0.9% IR PRN (14:20)
== END 2017-06-07 13:16 | disposition home or self-care (01) ==
LOC: WOUND 13:15
PROVIDERS: ATTEND Surgery
DX: E11.622 Type 2 diabetes mellitus with other skin ulcer (principal); L97.321 Non-pressure chronic ulcer of left ankle limited to breakdown of skin; K21.9 Gastro-esophageal reflux disease without esophagitis; F17.210 Nicotine dependence, cigarettes, uncomplicated
CPT/HCPCS: 11042; 11045; 82962; 97606; G0277; 99183

== ENCOUNTER 2017-06-14 11:25 | Outpatient (CLI) | payer MEDICAID ==
[2017-06-14] MEDS ORDERED: XYLOCAINE TOPICAL 4% TP ONE (12:39)
[2017-06-14] MEDS ORDERED: SILVER NITRATE TP ONE ×2 (12:55→12:58)
== END 2017-06-14 11:26 | disposition home or self-care (01) ==
LOC: WOUND 11:25
PROVIDERS: ATTEND Surgery
DX: E11.622 Type 2 diabetes mellitus with other skin ulcer (principal); L97.323 Non-pressure chronic ulcer of left ankle with necrosis of muscle; K21.9 Gastro-esophageal reflux disease without esophagitis; F17.210 Nicotine dependence, cigarettes, uncomplicated
CPT/HCPCS: 97606

== ENCOUNTER 2017-06-28 11:34 | Outpatient (CLI) | payer MEDICAID ==
[2017-06-28] MEDS ORDERED: XYLOCAINE TOPICAL 4% TP ONE ×2 (11:54→12:23)
[2017-06-28] MEDS ORDERED: DAKIN'S FULL STRENGTH ONE (11:59)
[2017-06-28] MEDS ORDERED: SILVER NITRATE TP ONE ×2 (12:27→16:34)
[2017-06-28] MEDS ORDERED: DAKIN'S FULL STRENGTH TP ONE (16:35)
== END 2017-06-28 11:35 | disposition home or self-care (01) ==
LOC: WOUND 11:34
PROVIDERS: ATTEND Surgery
DX: E11.622 Type 2 diabetes mellitus with other skin ulcer (principal); L97.321 Non-pressure chronic ulcer of left ankle limited to breakdown of skin; K21.9 Gastro-esophageal reflux disease without esophagitis; F17.210 Nicotine dependence, cigarettes, uncomplicated
CPT/HCPCS: 97606

== ENCOUNTER 2017-07-05 11:53 | Outpatient (CLI) | payer MEDICAID ==
[2017-07-05] MEDS ORDERED: XYLOCAINE TOPICAL 4% TP ONE ×2 (13:10→13:16)
[2017-07-05] MEDS ORDERED: SILVER NITRATE TP ONE ×2 (13:25→13:58)
== END 2017-07-05 11:54 | disposition home or self-care (01) ==
LOC: WOUND 11:53
PROVIDERS: ATTEND Surgery
DX: E11.622 Type 2 diabetes mellitus with other skin ulcer (principal); L97.321 Non-pressure chronic ulcer of left ankle limited to breakdown of skin; K21.9 Gastro-esophageal reflux disease without esophagitis; F17.210 Nicotine dependence, cigarettes, uncomplicated
CPT/HCPCS: 97606

== ENCOUNTER 2017-07-12 12:16 | Outpatient (CLI) | payer MEDICAID ==
[2017-07-12] MEDS ORDERED: NACL 0.9% 500 ML IR ONE (13:13)
[2017-07-12] MEDS ORDERED: XYLOCAINE TOPICAL 4% TP ONE ×2 (13:13→14:50)
[2017-07-12] MEDS ORDERED: SILVER NITRATE TP ONE ×2 (13:49→14:50)
[2017-07-12] MEDS ORDERED: NACL 0.9% IR PRN (14:50)
== END 2017-07-12 12:17 | disposition home or self-care (01) ==
LOC: WOUND 12:16
PROVIDERS: ATTEND Surgery
DX: E11.622 Type 2 diabetes mellitus with other skin ulcer (principal); L97.321 Non-pressure chronic ulcer of left ankle limited to breakdown of skin; K21.9 Gastro-esophageal reflux disease without esophagitis; F17.200 Nicotine dependence, unspecified, uncomplicated

== ENCOUNTER 2017-07-15 11:23 | Outpatient (CLI) | payer MEDICAID | END 2017-07-15 11:24 | disposition home or self-care (01) | LOC: WOUND 11:23 | PROVIDERS: ATTEND Podiatrist | DX: E11.622 Type 2 diabetes mellitus with other skin ulcer (principal); L97.823 Non-pressure chronic ulcer of other part of left lower leg with necrosis of muscle; K21.9 Gastro-esophageal reflux disease without esophagitis; F17.210 Nicotine dependence, cigarettes, uncomplicated | CPT/HCPCS: 97606 ==

== ENCOUNTER 2017-07-21 13:41 | Outpatient (CLI) | payer MEDICAID ==
[2017-07-21] MEDS ORDERED: XYLOCAINE TOPICAL 4% TP ONE ×2 (13:55→14:01)
[2017-07-21] MEDS ORDERED: NACL 0.9% IR PRN (13:55)
== END 2017-07-21 13:42 | disposition home or self-care (01) ==
LOC: WOUND 13:41
PROVIDERS: ATTEND Surgery
DX: E11.622 Type 2 diabetes mellitus with other skin ulcer (principal); L97.321 Non-pressure chronic ulcer of left ankle limited to breakdown of skin; K21.9 Gastro-esophageal reflux disease without esophagitis; F17.200 Nicotine dependence, unspecified, uncomplicated
CPT/HCPCS: 99213; G0463

== ENCOUNTER 2017-08-02 12:59 | Outpatient (CLI) | payer MEDICAID ==
[2017-08-02] MEDS ORDERED: XYLOCAINE TOPICAL 4% TP ONE (13:08)
[2017-08-02] MEDS ORDERED: NACL 0.9% IR PRN (13:08)
[2017-08-02] MEDS ORDERED: SILVER NITRATE TP ONE ×3 (13:55→16:30)
== END 2017-08-02 13:00 | disposition home or self-care (01) ==
LOC: WOUND 12:59
PROVIDERS: ATTEND Surgery
DX: E11.622 Type 2 diabetes mellitus with other skin ulcer (principal); L97.823 Non-pressure chronic ulcer of other part of left lower leg with necrosis of muscle; K21.9 Gastro-esophageal reflux disease without esophagitis; F17.210 Nicotine dependence, cigarettes, uncomplicated

== ENCOUNTER 2021-07-17 13:44 | Outpatient (CLI) | payer MEDICAID ==
--- NOTE | 2021-07-17 14:53 | XRay Report ---
Thoracic spine 3 views INDICATION: Back pain FINDINGS: Pedicles appear normal throughout. No significant loss of vertebral body height. Mild endpl ate changes throughout. No subluxation or compression fracture. Signer Name: Juan Reddy MD Signed: 07/17/2021 2:49 PM Workstation Name: [id number]
--- NOTE | 2021-07-17 15:24 | XRay Report ---
LUMBAR SPINE 5 VIEWS WITH OBLIQUES 1410 INDICATION: BACK PAIN COMPARISON: None available. FINDINGS: No fractures or subluxations are seen. Disc spaces are maintained. Mild bilateral L5-S1 fac et arthritic changes are noted, greater on the left. Signer Name: Bandar Thomas MD Signed: 07/17/2021 3:20 PM Workstation Name: [id number]
== END 2021-07-17 13:45 | disposition home or self-care (01) ==
LOC: XRAY 13:44
DX: M47.22 Other spondylosis with radiculopathy, cervical region (principal); M13.89 Other specified arthritis, multiple sites; M54.14 Radiculopathy, thoracic region
CPT/HCPCS: 72072; 72110